=== PATIENT | female | born 1960 | race African-American/Black ===

== ENCOUNTER 2017-06-10 02:45 | Emergency (ER) | payer MEDICARE, OTHER ==
--- OUTSIDE RECORDS SUMMARY | 2017-06-10 02:48 | XMS REPORT ---
:1960 Author Organization eClinicalWorks Care Team Providers Name Role Phone Anisa Lucas Provider Role Unavailable Allergies, Adverse Reactions, Alerts Substance Reaction Event Type N.K.D.A. Info Not Available Non Drug Allergy Problems Problem Type Condition Code Onset Dates Condition Status Problem Fatty liver K76.0 Active Problem Gastroesophageal reflux disease, K21.9 Active esophagitis presence not specified Problem Hypertension, unspecified type I10 Active Problem Fibromyalgia M79.7 Active Problem Chronic pain syndrome G89.4 Active Problem Dermatitis L30.9 Active Problem Hypertension I10 Active Problem GERD without esophagitis K21.9 Active Problem Depression with anxiety F41.8 Active Problem Obstructive sleep apnea G47.33 Active Assessment Fibromyalgia M79.7 Active Assessment Obstructive sleep apnea G47.33 Active Assessment Depression with anxiety F41.8 Active Assessment Chronic pain syndrome G89.4 Active Assessment Gastroesophageal reflux disease, K21.9 Active esophagitis presence not specified Assessment Hyperglycemia R73.9 Active Assessment Fatty liver K76.0 Active Assessment Hypertension, unspecified type I10 Active Assessment Elevated liver enzymes R74.8 Active Problem Menopause Z78.0 Active Medications Medication Code Code Instructions Start End Status Dosage System Date Date Zoloft [facility] 74896305092 100 mg Orally Active 1 tablet Once a day Cozaar ND 03383111582 100 mg Orally Active 1 tablet Once a day Methocarbamol ND 19346224421 500 MG Orally Sept Active 1-2 tablets every 6 hrs as 25, as needed needed 2017 for muscle cramps/pain Melatonin ND 35827196102 5 MG Orally Active 1 tablet at Once a day bedtime as needed with food Duloxetine HCl ND 65092552268 20 mg Orally Active 1 capsule Once a day Triamcinolone & NDC 0 0.1 % Active 1 Emollient Externally application Twice a day Hydrochlorothiazide ND 21868846690 12.5 MG Orally Active 1 tablet in Once a day the morning Cetirizine HCl ND 92281348235 10 MG Orally Active 1 tablet Once a day Ondansetron HCl [facility] 15940779688 4 MG Orally Active not defined Twice daily Nystatin [facility] 03226833471 481379 UNIT/ML Active 4 ml Mouth/Throat Four times a day x10 days Betamethasone [facility] 89818793848 0.05 % Active 1 Dipropionate Externally application Twice a day to affected area Medrol [facility] 35730560438 4 MG Orally Active 1 tablet with food or milk in the morning Ultram [facility] 88599634694 50 MG Orally Active 1 tablet as Three times a needed day Omeprazole [facility] 28481577815 20 mg Orally Active 1 capsule Once a day Trazodone HCl [facility] 65380200921 100 MG Orally Active 1 tablet at Once a day bedtime as needed for sleep Tramadol HCl [facility] 32992983718 50 MG Orally Active 1 tablet as 3x daily needed Savella [facility] 98352190295 12.5 MG Orally Active 1 tablet Twice a day Estrace [facility] 87377050007 0.1 MG/GM Active not defined Vaginal Lortab 5 NDC 0 Active not defined Cyclobenzaprine HCl [facility] 15371271016 10 MG Orally Active 1 tablet as Two times a needed day Results No Known Results Summary Purpose eClinicalWorks Submission
--- NOTE | 2017-06-10 03:23 | EDPHYS ---
Physician Documentation [facility] Name: Evelyn Rodgers Age: 57 yrs Sex: Female : 1960 Arrival Date: 06/10/2017 Time: 02:49 Bed 14 Private MD: Anisa Lucas ED Physician Honorio Nielsen HPI: 06/10 03:20 This 57 yrs old Black Female presents to ER via Ambulatory with complaints of FOOT rekha PROBLEM. 03:20 The patient presents with decreased range of motion, pain, tenderness. The complaints rekha affect the right foot. Context: resulted from a chronic condition, Mechanism of Injury: Unknown the patient can partially bear weight, the patient is able to ambulate. Onset: The symptoms/episode began/occurred 3 day(s) ago. Modifying factors: The symptoms are alleviated by elevation of extremity, the symptoms are aggravated by weight bearing, movement, wearing shoes. Associated signs and symptoms: The patient has no apparent associated signs or symptoms. Severity of symptoms: At their worst the symptoms were moderate, in the emergency department the symptoms are unchanged. The patient has experienced similar episodes in the past, multiple times. Historical: - Allergies: 03:11 PENICILLINS; ao 03:11 Ciprofloxacin; ao 03:11 Levaquin; ao - Home Meds: 03:11 losartan 100 mg oral tab 1 tab once daily [Active]; hydrochlorothiazide 12.5 mg Oral ao cap 1 cap once daily [Active]; tramadol 50 mg Oral tab 1 tab every 4-6 hours [Active]; omeprazole 20 mg Oral cpDR 1 cap once daily [Active]; - PMHx: 03:11 Hypertension; GERD; Fibromyalgia; ao - PSHx: 03:11 Hysterectomy; Thyroidectomy; tube ligation; Tonsillectomy; nose; breast; spider bite; ao - Immunization history:: Adult Immunizations unknown. - Social history:: Smoking status: Patient/guardian denies using tobacco, Patient/guardian denies using alcohol, street drugs. - Family history:: not pertinent. ROS: 03:20 Constitutional: Negative for fever, chills, and weight loss, Eyes: Negative for injury, rekha pain, redness, and discharge, ENT: Negative for injury, pain, and discharge, Neck: Negative for injury, pain, and swelling, Cardiovascular: Negative for chest pain, palpitations, and edema, Respiratory: Negative for shortness of breath, cough, wheezing, and pleuritic chest pain, Abdomen/GI: Negative for abdominal pain, nausea, vomiting, diarrhea, and constipation, Back: Negative for injury and pain, : Negative for injury, bleeding, discharge, and swelling, Skin: Negative for injury, rash, and discoloration, Neuro: Negative for headache, weakness, numbness, tingling, and seizure, Psych: Negative for depression, anxiety, suicide ideation, homicidal ideation, and hallucinations, Allergy/Immunology: Negative for hives, rash, and allergies, Endocrine: Negative for neck swelling, polydipsia, polyuria, polyphagia, and marked weight changes, Hematologic/Lymphatic: Negative for swollen nodes, abnormal bleeding, and unusual bruising. 03:20 MS/extremity: Positive for decreased range of motion, pain, tenderness, of the left foot. Exam: 03:20 Constitutional: This is a well developed, well nourished patient who is awake, alert, rekha and in no acute distress. Head/Face: Normocephalic, atraumatic. Eyes: Pupils equal round and reactive to light, extra-ocular motions intact. Lids and lashes normal. Conjunctiva and sclera are non-icteric and not injected. Cornea within normal limits. Periorbital areas with no swelling, redness, or edema. ENT: Nares patent. No nasal discharge, no septal abnormalities noted. Tympanic membranes are normal and external auditory canals are clear. Oropharynx with no redness, swelling, or masses, exudates, or evidence of obstruction, uvula midline. Mucous membranes moist. Neck: Trachea midline, no thyromegaly or masses palpated, and no cervical lymphadenopathy. Supple, full range of motion without nuchal rigidity, or vertebral point tenderness. No Meningismus. Chest/axilla: Normal chest wall appearance and motion. Nontender with no deformity. No lesions are appreciated. Cardiovascular: Regular rate and rhythm with a normal S1 and S2. No gallops, murmurs, or rubs. Normal PMI, no JVD. No pulse deficits. Respiratory: Lungs have equal breath sounds bilaterally, clear to auscultation and percussion. No rales, rhonchi or wheezes noted. No increased work of breathing, no retractions or nasal flaring. Abdomen/GI: Soft, non-tender, with normal bowel sounds. No distension or tympany. No guarding or rebound. No evidence of tenderness throughout. Back: No spinal tenderness. No costovertebral tenderness. Full range of motion. Skin: Warm, dry with normal turgor. Normal color with no rashes, no lesions, and no evidence of cellulitis. Neuro: Awake and alert, GCS 15, oriented to person, place, time, and situation. Cranial nerves II-XII grossly intact. Motor strength 5/5 in all extremities. Sensory grossly intact. Cerebellar exam normal. Normal gait. Psych: Awake, alert, with orientation to person, place and time. Behavior, mood, and affect are within normal limits. 03:20 Musculoskeletal/extremity: ROM: full active range of motion, full passive range of motion, Pulses: noted to be 4+ in the bilateral radial, brachial, femoral, popliteal, posterior tibial and and dorsalis pedis arteries., Compartment Syndrome exam of affected extremity: is normal. Weight bearing: can bear weight with assistance only, DVT Exam: no swelling, negative Homans' sign noted on exam, no appreciated bluish discoloration, no erythema, no increased warmth, pain, tenderness. Vital Signs: 03:11 BP 164 / 110; Pulse 87; Resp 16; Temp 98.1(O); Pulse Ox 100% on R/A; Weight 90.72 kg ao (R); Height 5 ft. 7 in. (170.18 cm) (R); Pain 8/10; 04:13 BP 165 / 102; Pulse 78; Resp 14; Pulse Ox 98% on R/A; Pain 0/10; ao 03:11 Body Mass Index 31.32 (90.72 kg, 170.18 cm) ao MDM: 03:03 Patient medically screened. [facility] 03:20 Data reviewed: vital signs, nurses notes. rekha Administered Medications: 03:35 Drug: [place] 10 mg-325 mg 1 tabs Route: PO; ao 03:41 Follow up: Response: Medication administered at discharge. ao 03:48 Follow up: Response: No adverse reaction ao Disposition: 06/10/17 03:23 Discharged to Home. Impression: Pain in left foot - chronic. - Condition is Stable. - Discharge Instructions: Foot Contusion, Foot Sprain, Foot Contusion, Xxbo-vm-Inxz. - Prescriptions for Tylenol- Codeine #3 300-30 mg Oral Tablet - take 2 tablet by ORAL route every 6 hours As needed; 30 tablet. Motrin IB 200 mg Oral Tablet - take 1 tablet by ORAL route every 6 hours As needed as needed with food; 20 tablet. - Medication Reconciliation Form, Thank You Letter, Antibiotic Education, Prescription Opioid Use form. - Follow up: Anisa Lucas MD; When: 2 - 3 days; Reason: Recheck today's complaints, Continuance of care, Re-evaluation by your physician. - Problem is new. - Symptoms have improved. Signatures: Honorio Nielsen MD MD cha Ortiz, Alex RN RN ao
--- NOTE | 2017-06-10 03:23 | ER ---
Nurse's Notes [facility] Name: Evelyn Rodgers Age: 57 yrs Sex: Female : 1960 Arrival Date: 06/10/2017 Time: 02:49 Bed 14 Private MD: Anisa Lucas Diagnosis: Pain in left foot-chronic Presentation: 06/10 03:05 Presenting complaint: Patient states: "I have a callus in my left foot that is been ao hurting more lately." Patient reports pain 8/10. Patient states that is not able to walk due to pain. Transition of care: patient was not received from another setting of care. Onset of symptoms is unknown. Initial Sepsis Screen: Does the patient meet any 2 criteria? No. Patient's initial sepsis screen is negative. Does the patient have a suspected source of infection? No. Patient's initial sepsis screen is negative. Care prior to arrival: None. 03:05 Method Of Arrival: Ambulatory ao 03:05 Acuity: DARIUS 4 ao Triage Assessment: 03:13 General: Appears in no apparent distress. comfortable, Behavior is calm, cooperative, ao appropriate for age. Pain: Complains of pain in left foot. EENT: No signs and/or symptoms were reported regarding the EENT system. Neuro: Level of Consciousness is awake, alert, obeys commands, Oriented to person, place, time, situation, Appropriate for age Moves all extremities. Speech is normal, Facial symmetry appears normal. Cardiovascular: Patient's skin is warm and dry. Respiratory: Airway is patent Respiratory effort is even, unlabored, Respiratory pattern is regular, symmetrical. GI: Abdomen is non-distended. : No signs and/or symptoms were reported regarding the genitourinary system. Derm: No signs and/or symptoms reported regarding the dermatologic system. Musculoskeletal: Range of motion: intact in left ankle. Historical: - Allergies: 03:11 PENICILLINS; ao 03:11 Ciprofloxacin; ao 03:11 Levaquin; ao - Home Meds: 03:11 losartan 100 mg oral tab 1 tab once daily [Active]; hydrochlorothiazide 12.5 mg Oral ao cap 1 cap once daily [Active]; tramadol 50 mg Oral tab 1 tab every 4-6 hours [Active]; omeprazole 20 mg Oral cpDR 1 cap once daily [Active]; - PMHx: 03:11 Hypertension; GERD; Fibromyalgia; ao - PSHx: 03:11 Hysterectomy; Thyroidectomy; tube ligation; Tonsillectomy; nose; breast; spider bite; ao - Immunization history:: Adult Immunizations unknown. - Social history:: Smoking status: Patient/guardian denies using tobacco, Patient/guardian denies using alcohol, street drugs. - Family history:: not pertinent. Screenin:12 Abuse screen: Denies threats or abuse. Denies injuries from another. Nutritional ao screening: No deficits noted. Tuberculosis screening: No symptoms or risk factors identified. Fall Risk None identified. Assessment: 03:14 General: See triage notes. ao 03:49 Reassessment: Patient waiting on significant other who is in the same room to be ao discharge. Patient will be send home when significant other is discharge about 45 min. 04:14 Reassessment: Patient states pain is okay at this time since she is not walking. ao Waiting on significant other to be discharge. Discharge instructions had been given already to patient and patient agrees with the POC and to follow up with a Podiatries. Vital Signs: 03:11 BP 164 / 110; Pulse 87; Resp 16; Temp 98.1(O); Pulse Ox 100% on R/A; Weight 90.72 kg ao (R); Height 5 ft. 7 in. (170.18 cm) (R); Pain 8/10; 04:13 BP 165 / 102; Pulse 78; Resp 14; Pulse Ox 98% on R/A; Pain 0/10; ao 03:11 Body Mass Index 31.32 (90.72 kg, 170.18 cm) ao ED Course: 02:49 Patient arrived in ED. do 02:50 Anisa Lucas MD is Private Physician. do 02:57 Vahe Aranda, RANDY is Primary Nurse. ao 03:03 Honorio Nielsen MD is Attending Physician. rekha 03:07 Triage completed. ao 03:07 Arm band placed on right wrist. Patient placed in an exam room, on a stretcher, Patient ao notified of wait time. 03:14 Patient has correct armband on for positive identification. Pulse ox on. NIBP on. ao 03:22 Anisa Lucas MD is Referral Physician. rekha 03:42 No provider procedures requiring assistance completed. Patient did not have IV access ao during this emergency room visit. Administered Medications: 03:35 Drug: [place] 10 mg-325 mg 1 tabs Route: PO; ao 03:41 Follow up: Response: Medication administered at discharge. ao 03:48 Follow up: Response: No adverse reaction ao Outcome: 03:23 Discharge ordered by . rekha 03:42 Discharged to home ambulatory. ao 03:42 Condition: stable 03:42 Discharge instructions given to patient, Instructed on discharge instructions, follow up and referral plans. Demonstrated understanding of instructions, follow-up care, medications, Prescriptions given X 1. 04:31 Patient left the ED. ao Signatures: Honorio Nielsen MD MD cha Ortiz, Alex RN RN Winter Matias do
[2017-06-10] MEDS ORDERED: HYDROCODONE/APAP 10/325 TAB ONE (03:30)
== END 2017-06-10 04:31 | disposition home or self-care (01) ==
LOC: ER 02:45
DX: M79.672 Pain in left foot (principal); Z88.0 Allergy status to penicillin; Z88.6 Allergy status to analgesic agent; Z88.1 Allergy status to other antibiotic agents; I10 Essential (primary) hypertension; K21.9 Gastro-esophageal reflux disease without esophagitis; M79.7 Fibromyalgia
CPT/HCPCS: 99283

== ENCOUNTER 2017-11-10 13:02 | Emergency (ER) | payer OTHER ==
--- OUTSIDE RECORDS SUMMARY | 2017-11-10 13:04 | XMS REPORT ---
[...] End Status Dosage System Date Date Zoloft [facility] 75870816568 100 mg Orally Active 1 tablet Once a day Cozaar ND 52776527661 100 mg Orally Active 1 tablet Once a day Methocarbamol ND 55035314195 500 MG Orally Sept Active 1-2 tablets every 6 hrs as 25, as needed needed 2017 for muscle cramps/pain Melatonin ND 59877007508 5 MG Orally Active 1 tablet at Once a day bedtime as needed with food Duloxetine HCl ND 85480599010 20 mg Orally Active 1 capsule Once a day Triamcinolone & NDC 0 0.1 % Active 1 Emollient Externally application Twice a day Hydrochlorothiazide ND 49540723856 12.5 MG Orally Active 1 tablet in Once a day the morning Cetirizine HCl ND 57957904356 10 MG Orally Active 1 tablet Once a day Ondansetron HCl [facility] 91651475023 4 MG Orally Active not defined Twice daily Nystatin [facility] 45338764091 101362 UNIT/ML Active 4 ml Mouth/Throat Four times a day x10 days Betamethasone [facility] 04707304428 0.05 % Active 1 Dipropionate Externally application Twice a day to affected area Medrol [facility] 60560017024 4 MG Orally Active 1 tablet with food or milk in the morning Ultram [facility] 27089613579 50 MG Orally Active 1 tablet as Three times a needed day Omeprazole [facility] 20150180622 20 mg Orally Active 1 capsule Once a day Trazodone HCl [facility] 47084336375 100 MG Orally Active 1 tablet at Once a day bedtime as needed for sleep Tramadol HCl [facility] 63105909724 50 MG Orally Active 1 tablet as 3x daily needed Savella [facility] 73600766118 12.5 MG Orally Active 1 tablet Twice a day Estrace [facility] 88825824912 0.1 MG/GM Active not defined Vaginal Lortab 5 NDC 0 Active not defined Cyclobenzaprine HCl [facility] 65071143624 10 MG Orally Active 1 tablet as Two times a needed day Results No Known Results Summary Purpose eClinicalWorks Submission
[2017-11-10] MEDS ORDERED: MORPHINE 4 MG/ML SYR ONE (13:44)
[2017-11-10] MEDS ORDERED: ONDANSETRON 4 MG (ODT) TAB ONE (13:44)
--- NOTE | 2017-11-10 13:48 | EDPHYS ---
Physician Documentation [facility] Name: Evelyn Rodgers Age: 57 yrs Sex: Female : 1960 Arrival Date: 11/10/2017 Time: 13:03 Bed 15 Private MD: Anisa Lucas ED Physician Eric Nolen HPI: 11/10 13:38 This 57 yrs old Black Female presents to ER via Ambulatory with complaints of Left Foot pm1 Pain. 13:38 The patient presents with pain, that is chronic. The complaints affect the left foot. pm1 Context: The problem was sustained at home, resulted from prior debridement to left foot about 10 years ago, the patient can fully bear weight, the patient is able to ambulate. Onset: The symptoms/episode began/occurred Many years ago. Last surgery in 2008. Modifying factors: The symptoms are alleviated by nothing. the symptoms are aggravated by weather changes. Associated signs and symptoms: Pertinent negatives calf tenderness, fever, numbness, swelling, tingling. Treatment prior to arrival includes: over the counter medications, Tylenol. Severity of symptoms: in the emergency department the symptoms are actually worse. The patient has experienced similar episodes in the past, chronically. The patient has not recently seen a physician. Historical: - Allergies: 13:26 Ciprofloxacin; ss 13:26 Levaquin; ss 13:26 PENICILLINS; ss - PMHx: 13:26 Fibromyalgia; GERD; Hypertension; ss - PSHx: 13:26 Hysterectomy; tube ligation; Thyroidectomy; Tonsillectomy; nose; breast reduction; ss spider bite; - Immunization history:: Adult Immunizations up to date. - Social history:: Smoking status: Patient/guardian denies using tobacco. - Ebola Screening: : Patient denies exposure to infectious person Patient denies travel to an Ebola-affected area in the 21 days before illness onset. ROS: 13:38 Constitutional: Negative for fever, chills, and weight loss, Eyes: Negative for injury, pm1 pain, redness, and discharge, ENT: Negative for injury, pain, and discharge, Neck: Negative for injury, pain, and swelling, Cardiovascular: Negative for chest pain, palpitations, and edema, Respiratory: Negative for shortness of breath, cough, wheezing, and pleuritic chest pain, Abdomen/GI: Negative for abdominal pain, nausea, vomiting, diarrhea, and constipation, Back: Negative for injury and pain. 13:38 Skin: Negative for injury, rash, and discoloration. 13:38 Neuro: Negative for headache, weakness, numbness, tingling, and seizure. 13:38 MS/extremity: Positive for pain, of the left foot, Negative for decreased range of motion, paresthesias. Exam: 13:38 Constitutional: This is a well developed, well nourished patient who is awake, alert, pm1 and in no acute distress. Head/Face: Normocephalic, atraumatic. Chest/axilla: Normal chest wall appearance and motion. Nontender with no deformity. No lesions are appreciated. Cardiovascular: Regular rate and rhythm with a normal S1 and S2. No gallops, murmurs, or rubs. Normal PMI, no JVD. No pulse deficits. Respiratory: Lungs have equal breath sounds bilaterally, clear to auscultation and percussion. No rales, rhonchi or wheezes noted. No increased work of breathing, no retractions or nasal flaring. Abdomen/GI: Soft, non-tender, with normal bowel sounds. No distension or tympany. No guarding or rebound. No evidence of tenderness throughout. Skin: Warm, dry with normal turgor. Normal color with no rashes, no lesions, and no evidence of cellulitis. 13:38 Musculoskeletal/extremity: Extremities: grossly normal except: noted in the left foot: Scar tissue to sole of left foot, There is no evidence of erythema, swelling, cellulitis, abscess, ROM: full active range of motion, in the left foot, full passive range of motion, in the left foot, Pulses: noted to be 2+ in the left dorsalis pedis artery, Sensation intact. 13:38 Neuro: Orientation: is normal, Motor: moves all fours, Sensation: is normal, no obvious gross deficits. Vital Signs: 13:26 BP 141 / 105; Pulse 83; Resp 15; Pulse Ox 99% on R/A; Weight 106.59 kg; Height 5 ft. 6 ss in. (167.64 cm); Pain 9/10; 14:05 BP 155 / 99; Pulse 71; Resp 17; Pulse Ox 99% on R/A; kr2 13:26 Body Mass Index 37.93 (106.59 kg, 167.64 cm) ss MDM: 13:20 Patient medically screened. pm1 13:46 Data reviewed: vital signs. Data interpreted: Pulse oximetry: on room air is 99 %. pm1 Interpretation: normal. 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 Administered Medications: 13:42 Drug: Zofran 4 mg Route: PO; kr2 14:05 Follow up: Response: No adverse reaction kr2 13:44 Drug: morphine 4 mg Route: IM; Site: right deltoid; kr2 14:05 Follow up: Response: No adverse reaction; Pain is decreased kr2 Disposition: 17:10 Co-signature as Attending Physician, Eric Nolen MD. rn Disposition: 11/10/17 13:47 Discharged to Home. Impression: Other chronic pain. - Condition is Stable. - Discharge Instructions: Chronic Pain. - Prescriptions for Tramadol 50 mg Oral Tablet - take 1 tablet by ORAL route every 8 hours as needed; 12 tablet. - Medication Reconciliation Form, Thank You Letter, Antibiotic Education, Prescription Opioid Use form. - Follow up: Emergency Department; When: As needed; Reason: Worsening of condition. Follow up: Darvin Haider MD; When: 2 - 3 days; Reason: Recheck today's complaints, Continuance of care, Re-evaluation by your physician. - Problem is new. - Symptoms have improved. Signatures: Eric Nolen MD MD rn Smirch, Shelby, RN RN Mac Alfred NP MANUAL PLATE FILLER pm1 Kayy Brumfield RN RN kr2 Corrections: (The following items were deleted from the chart) 14:06 13:47 11/10/2017 13:47 Discharged to Home. Impression: Other chronic pain. Condition is kr2 Stable. Forms are Medication Reconciliation Form, Thank You Letter, Antibiotic Education, Prescription Opioid Use. Follow up: Emergency Department; When: As needed; Reason: Worsening of condition. Follow up: Darvin Haider; When: 2 - 3 days; Reason: Recheck today's complaints, Continuance of care, Re-evaluation by your physician. Problem is new. Symptoms have improved. pm1
--- NOTE | 2017-11-10 13:48 | ER ---
Nurse's Notes [facility] Name: Evelyn Rodgers Age: 57 yrs Sex: Female : 1960 Arrival Date: 11/10/2017 Time: 13:03 Bed 15 Private MD: Anisa Lucas Diagnosis: Other chronic pain Presentation: 11/10 13:23 Presenting complaint: Patient states: L foot pain x 2 years that has gotten worse since ss the weather changed. Patient reports a history of fibromyalgia and states that the weather has caused a flare up. Also c/o achy joints. Transition of care: patient was not received from another setting of care. Onset of symptoms is unknown. Risk Assessment: Do you want to hurt yourself or someone else? Patient reports no desire to harm self or others. Initial Sepsis Screen: Does the patient meet any 2 criteria? No. Patient's initial sepsis screen is negative. Does the patient have a suspected source of infection? No. Patient's initial sepsis screen is negative. Care prior to arrival: None. 13:23 Method Of Arrival: Ambulatory ss 13:23 Acuity: DARIUS 5 ss Historical: - Allergies: 13:26 Ciprofloxacin; ss 13:26 Levaquin; ss 13:26 PENICILLINS; ss - PMHx: 13:26 Fibromyalgia; GERD; Hypertension; ss - PSHx: 13:26 Hysterectomy; tube ligation; Thyroidectomy; Tonsillectomy; nose; breast reduction; ss spider bite; - Immunization history:: Adult Immunizations up to date. - Social history:: Smoking status: Patient/guardian denies using tobacco. - Ebola Screening: : Patient denies exposure to infectious person Patient denies travel to an Ebola-affected area in the 21 days before illness onset. Screenin:03 Abuse screen: Denies threats or abuse. Denies injuries from another. Nutritional kr2 screening: No deficits noted. Tuberculosis screening: No symptoms or risk factors identified. Fall Risk None identified. Assessment: 13:20 General: Appears in no apparent distress. uncomfortable, well groomed, well developed, kr2 well nourished, Behavior is calm, cooperative, appropriate for age. Pain: Complains of pain in left foot Pain currently is 10 out of 10 on a pain scale. Quality of pain is described as aching, Is continuous, Alleviated by medications, Aggravated by weight bearing. Neuro: Level of Consciousness is awake, alert, obeys commands, Oriented to person, place, time, situation, Appropriate for age. Cardiovascular: Capillary refill < 3 seconds in bilateral fingers Patient's skin is warm and dry. Respiratory: Airway is patent Respiratory effort is even, unlabored, Respiratory pattern is regular, symmetrical. Derm: Skin is intact, is healthy with good turgor, Skin is pink, warm \T\ dry. Musculoskeletal: Circulation, motion, and sensation intact. Patient had muscle tissue removed from the bottom of her foot due to brown recluse bite in 2011. She states she lives with chronic pain and today it got unbearable. Vital Signs: 13:26 BP 141 / 105; Pulse 83; Resp 15; Pulse Ox 99% on R/A; Weight 106.59 kg; Height 5 ft. 6 ss in. (167.64 cm); Pain 9/10; 14:05 BP 155 / 99; Pulse 71; Resp 17; Pulse Ox 99% on R/A; kr2 13:26 Body Mass Index 37.93 (106.59 kg, 167.64 cm) ss ED Course: 13:03 Patient arrived in ED. sb2 13:04 Anisa Lucas MD is Private Physician. sb2 13:20 Mac Alfred NP is PHCP. pm1 13:20 Eric Nolen MD is Attending Physician. pm1 13:20 Arm band placed on. kr2 13:20 No provider procedures requiring assistance completed. Patient did not have IV access kr2 during this emergency room visit. 13:24 Triage completed. ss 13:25 Pulse ox on. NIBP on. jp3 13:34 Bed in low position. Call light in reach. Side rails up X 1. Warm blanket given. jp3 13:35 Ice pack to injury. jp3 13:44 Kayy Brumfield, RANDY is Primary Nurse. kr2 13:46 Darvin Haider MD is Referral Physician. pm1 Administered Medications: 13:42 Drug: Zofran 4 mg Route: PO; kr2 14:05 Follow up: Response: No adverse reaction kr2 13:44 Drug: morphine 4 mg Route: IM; Site: right deltoid; kr2 14:05 Follow up: Response: No adverse reaction; Pain is decreased kr2 Outcome: 13:47 Discharge ordered by . pm1 14:04 Discharged to home ambulatory, with friend. kr2 14:04 Condition: good 14:04 Discharge instructions given to patient, friend, Instructed on discharge instructions, follow up and referral plans. medication usage, Demonstrated understanding of instructions, follow-up care, medications, Prescriptions given X 1. 14:06 Patient left the ED. kr2 Signatures: Mely Hawk RN RN ss Mac Alfred, CATHY PHARMACY CARE COORDINATOR pm1 Kayy Brumfield RN RN kr2 Ginger Ingram sb2 Sedrick Cotton jp3
== END 2017-11-10 14:06 | disposition home or self-care (01) ==
LOC: ER 13:02
DX: G89.29 Other chronic pain (principal); I10 Essential (primary) hypertension; Z88.0 Allergy status to penicillin; Z88.3 Allergy status to other anti-infective agents
CPT/HCPCS: 96372; 99283

== ENCOUNTER 2017-12-03 13:11 | Emergency (ER) | payer OTHER ==
--- OUTSIDE RECORDS SUMMARY | 2017-12-03 13:13 | XMS REPORT ---
[...] End Status Dosage System Date Date Zoloft [facility] 54639442280 100 mg Orally Active 1 tablet Once a day Cozaar ND 21821015496 100 mg Orally Active 1 tablet Once a day Methocarbamol ND 45068073834 500 MG Orally Sept Active 1-2 tablets every 6 hrs as 25, as needed needed 2017 for muscle cramps/pain Melatonin ND 25742279642 5 MG Orally Active 1 tablet at Once a day bedtime as needed with food Duloxetine HCl ND 19984099146 20 mg Orally Active 1 capsule Once a day Triamcinolone & NDC 0 0.1 % Active 1 Emollient Externally application Twice a day Hydrochlorothiazide ND 09441356335 12.5 MG Orally Active 1 tablet in Once a day the morning Cetirizine HCl ND 54026555885 10 MG Orally Active 1 tablet Once a day Ondansetron HCl [facility] 64785713886 4 MG Orally Active not defined Twice daily Nystatin [facility] 82505199496 718108 UNIT/ML Active 4 ml Mouth/Throat Four times a day x10 days Betamethasone [facility] 32383445315 0.05 % Active 1 Dipropionate Externally application Twice a day to affected area Medrol [facility] 22597453612 4 MG Orally Active 1 tablet with food or milk in the morning Ultram [facility] 68592542523 50 MG Orally Active 1 tablet as Three times a needed day Omeprazole [facility] 89628702533 20 mg Orally Active 1 capsule Once a day Trazodone HCl [facility] 75623762209 100 MG Orally Active 1 tablet at Once a day bedtime as needed for sleep Tramadol HCl [facility] 52658490034 50 MG Orally Active 1 tablet as 3x daily needed Savella [facility] 08570955850 12.5 MG Orally Active 1 tablet Twice a day Estrace [facility] 16221037060 0.1 MG/GM Active not defined Vaginal Lortab 5 NDC 0 Active not defined Cyclobenzaprine HCl [facility] 51777759251 10 MG Orally Active 1 tablet as Two times a needed day Results No Known Results Summary Purpose eClinicalWorks Submission
--- OUTSIDE RECORDS SUMMARY | 2017-12-03 13:13 | XMS REPORT ---
:1960 Author Organization eClinicalWorks Care Team Providers Name Role Phone Anisa Lucas Provider Role Unavailable Allergies, Adverse Reactions, Alerts Substance Reaction Event Type N.K.D.A. Info Not Available Non Drug Allergy Problems Problem Type Condition Code Onset Dates Condition Status Problem Hypertension, unspecified type I10 Active Problem GERD without esophagitis K21.9 Active Problem Gastroesophageal reflux disease, K21.9 Active esophagitis presence not specified Problem Dermatitis L30.9 Active Problem Fibromyalgia M79.7 Active Problem Subcutaneous mass R22.9 Active Problem Obstructive sleep apnea G47.33 Active Problem Hypertension I10 Active Problem Chronic pain syndrome G89.4 Active Problem Depression with anxiety F41.8 Active Assessment Depression with anxiety F41.8 Active Assessment Gastroesophageal reflux disease, K21.9 Active esophagitis presence not specified Assessment Subcutaneous mass R22.9 Active Assessment Hypertension, unspecified type I10 Active Problem Menopause Z78.0 Active Assessment Chronic pain syndrome G89.4 Active Problem Fatty liver K76.0 Active Medications Medication Code Code Instructions Start End Status Dosage System Date Date Melatonin [facility] 12035570722 5 MG Orally Active 1 tablet at Once a day bedtime as needed with food Medrol [facility] 61353392753 4 MG Orally Active 1 tablet with food or milk in the morning Savella [facility] 08019765629 12.5 MG Active 1 tablet Orally Twice a day Betamethasone ND 61807827287 0.05 % Active 1 Dipropionate Externally application Twice a day to affected area Lortab 5 NDC 0 Active not defined Tramadol HCl ND 66768318825 50 MG Orally Timo Active 1 tablet as Twice daily 02, needed for 2019 pain Triamcinolone & NDC 0 0.1 % Active 1 Emollient Externally application Twice a day Estrace ND 31794394881 0.1 MG/GM Active not defined Vaginal Nystatin [facility] 58160846683 642919 Active 4 ml UNIT/ML Mouth/Throat Four times a day x10 days Trazodone HCl ND 43114590526 100 mg Orally Active 1 tablet at Once a day bedtime as needed for sleep Zoloft [facility] 14804220907 100 mg Orally Active 1 tablet Once a day Duloxetine HCl [facility] 26041526080 20 mg Orally Active 1 capsule Once a day Hydrochlorothiazide [facility] 08533474467 12.5 MG Active 1 tablet in Orally Once a the morning day Ondansetron HCl [facility] 83525853369 4 MG Orally Active not defined Twice daily Ultram [facility] 48886543984 50 MG Orally Active 1 tablet as Three times a needed day Cozaar [facility] 68958641582 100 mg Orally Active 1 tablet Once a day Omeprazole [facility] 16405226825 20 mg Orally Active 1 capsule Once a day Cyclobenzaprine HCl [facility] 35162649471 10 MG Orally Active 1 tablet as Two times a needed day Cetirizine HCl [facility] 26328211922 10 MG Orally Active 1 tablet Once a day Methocarbamol [facility] 24508713854 500 MG Orally Aria Active 1-2 tablets Twice daily , as needed 2018 for muscle cramps/pain Results No Known Results Summary Purpose eClinicalWorks Submission
[2017-12-03] MEDS ORDERED: MEPERIDINE HCL 50 MG/ML AMP ONE (15:04)
[2017-12-03] MEDS ORDERED: DEXAMETHASONE 10 MG/ML VIAL ONE (15:04)
[2017-12-03] MEDS ORDERED: ONDANSETRON 4 MG/2 ML VIAL ONE (15:05)
[2017-12-03] MEDS ORDERED: KETOROLAC 30 MG/ML INJ ONE (15:05)
--- NOTE | 2017-12-03 15:49 | ER ---
Nurse's Notes [facility] Name: Evelyn Rodgers Age: 57 yrs Sex: Female : 1960 Arrival Date: 12/03/2017 Time: 13:13 Bed 13 Private MD: Anisa Lucas Diagnosis: Other chronic pain Presentation: 12/03 13:23 Presenting complaint: Patient states: "I have chronic pain and I have a pack in the aj1 back where they insert medicine, and I think the medicine has worn off because I haven't felt like this in a long time" Reports generalized pain for the past 3 weeks. Transition of care: patient was not received from another setting of care. Onset of symptoms was November 2017. Risk Assessment: Do you want to hurt yourself or someone else? Patient reports no desire to harm self or others. Initial Sepsis Screen: Does the patient meet any 2 criteria? No. Patient's initial sepsis screen is negative. Does the patient have a suspected source of infection? No. Patient's initial sepsis screen is negative. Care prior to arrival: None. 13:23 Method Of Arrival: Ambulatory [facility] 13:23 Acuity: DARIUS 4 aj1 Triage Assessment: 13:25 General: Appears in no apparent distress. uncomfortable, Behavior is calm, cooperative, aj1 appropriate for age. Pain: Pain currently is 9 out of 10 on a pain scale. Neuro: Level of Consciousness is awake, alert, obeys commands. Cardiovascular: Patient's skin is warm and dry. Respiratory: Airway is patent Respiratory effort is even, unlabored, Respiratory pattern is regular, symmetrical. Historical: - Allergies: 13:25 Ciprofloxacin; aj1 13:25 Levaquin; aj1 13:25 PENICILLINS; aj1 - Home Meds: 13:25 hydrochlorothiazide 12.5 mg Oral cap 1 cap once daily [Active]; losartan 100 mg Oral aj1 tab 1 tab once daily [Active]; omeprazole 20 mg Oral cpDR 1 cap once daily [Active]; tramadol 50 mg Oral tab 1 tab every 4-6 hours [Active]; - PMHx: 13:25 Fibromyalgia; GERD; Hypertension; aj1 - Immunization history:: Flu vaccine is up to date. - Social history:: Smoking status: Patient/guardian denies using tobacco. - Ebola Screening: : Patient denies travel to an Ebola-affected area in the 21 days before illness onset. Screenin:35 Abuse screen: Denies threats or abuse. Nutritional screening: No deficits noted. rb1 Tuberculosis screening: No symptoms or risk factors identified. Fall Risk None identified. Assessment: 13:35 General: Appears in no apparent distress. comfortable, Behavior is calm, cooperative. rb1 Pain: Complains of pain in generalized Pain currently is 9 out of 10 on a pain scale. Pain began Pt. stated, "I was here three weeks ago for the same thing. I have an appointment with the pain doctor next week.". Neuro: Level of Consciousness is awake, alert, obeys commands, Oriented to person, place, time, situation. Cardiovascular: Capillary refill < 3 seconds is brisk in bilateral fingers. Respiratory: Airway is patent Respiratory effort is even, unlabored, Respiratory pattern is regular, symmetrical. GI: No signs and/or symptoms were reported involving the gastrointestinal system. : No signs and/or symptoms were reported regarding the genitourinary system. Derm: Skin is dry, Skin is normal, Skin temperature is warm. Musculoskeletal: Range of motion: intact in all extremities. 14:30 Reassessment: Patient appears in no apparent distress at this time. No changes from rb1 previously documented assessment. 15:16 Reassessment: Patient appears in no apparent distress at this time. Patient and/or rb1 family updated on plan of care and expected duration. Pain level reassessed. Patient is alert, oriented x 3, equal unlabored respirations, skin warm/dry/pink. 15:46 Reassessment: Patient appears in no apparent distress at this time. Patient and/or rb1 family updated on plan of care and expected duration. Pain level reassessed. Patient is alert, oriented x 3, equal unlabored respirations, skin warm/dry/pink. Patient states feeling better. Vital Signs: 13:25 BP 158 / 105; Pulse 81; Resp 18; Temp 97.1; Pulse Ox 99% on R/A; Weight 108.41 kg (R); aj1 Height 5 ft. 6 in. (167.64 cm) (R); Pain 9/10; 14:25 BP 114 / 85; Pulse 61; Resp 19; Pulse Ox 98% on R/A; rb1 15:25 BP 128 / 89; Pulse 70; Resp 18; Pulse Ox 97% on R/A; rb1 16:00 BP 128 / 89; Pulse 71; Resp 19; Pulse Ox 99% on R/A; Pain 4/10; rb1 13:25 Body Mass Index 38.58 (108.41 kg, 167.64 cm) aj1 ED Course: 13:13 Patient arrived in ED. tw3 13:13 Anisa Lucas MD is Private Physician. tw3 13:24 Triage completed. aj1 13:25 Arm band placed on Patient placed in an exam room. aj1 13:33 Matthew Bundy PA is PHCP. jr8 13:33 Jarad Willett MD is Attending Physician. jr8 13:35 Patient has correct armband on for positive identification. Bed in low position. Call rb1 light in reach. Side rails up X 1. Pulse ox on. NIBP on. 13:37 Teresa Bean, RN is Primary Nurse. rb1 14:58 Missed attempt(s): 24 gauge in right hand. Bleeding controlled, band aid applied, dh3 catheter tip intact. 15:00 Missed attempt(s): 24 gauge in left hand. Bleeding controlled, band aid applied, dh3 catheter tip intact. 15:02 Inserted saline lock: 20 gauge in left antecubital area, using aseptic technique. dh3 16:00 No provider procedures requiring assistance completed. IV discontinued, intact, rb1 bleeding controlled, No redness/swelling at site. Pressure dressing applied. Administered Medications: 15:09 Drug: Decadron - Dexamethasone 10 mg Route: IVP; Site: left antecubital; rb1 15:30 Follow up: Response: No adverse reaction rb1 15:10 Drug: TORadol 30 mg Route: IVP; Site: left antecubital; rb1 15:30 Follow up: Response: No adverse reaction; Pain is decreased rb1 15:12 Drug: Demerol 50 mg Route: IVP; Site: left antecubital; rb1 15:30 Follow up: Response: No adverse reaction; Pain is decreased rb1 15:14 Drug: Zofran 4 mg Route: IVP; Site: left antecubital; rb1 15:30 Follow up: Response: No adverse reaction rb1 Outcome: 15:48 Discharge ordered by . jr8 16:00 Discharged to home via wheelchair, with family. rb1 16:00 Condition: stable 16:00 Discharge instructions given to patient, Instructed on discharge instructions, follow up and referral plans. medication usage, Demonstrated understanding of instructions, follow-up care, medications, Prescriptions given X 1. 16:00 Patient left the ED. rb1 Signatures: Erma Colunga RN RN aj1 Matthew Bundy PA PA jr8 Teresa Bean RN RN rb1 Betty Duong tw3 Christina Valencia 3 Corrections: (The following items were deleted from the chart) 16:09 16:06 Patient left the ED. rb1 rb1
--- NOTE | 2017-12-03 15:50 | EDPHYS ---
Physician Documentation [facility] Name: Evelyn Rodgers Age: 57 yrs Sex: Female : 1960 Arrival Date: 12/03/2017 Time: 13:13 Bed 13 Private MD: Anisa Lucas ED Physician Jarad Willett HPI: 12/03 14:18 This 57 yrs old Black Female presents to ER via Ambulatory with complaints of Pain All jr8 Over. 14:18 Patient with history of fibromyalgia and chronic pain. Stated that she had pain pump jr8 placed a few year back and thinks it is no longer working. Stated that for the past few weeks noticed that she has had increased pain that is now unbearable. Saw PCP here and was given Tramadol for pain which she stated is not working at all. Stated that she is establishing herself with pain management here as well. Last one was in [place] . Severity of symptoms: At their worst the symptoms were moderate in the emergency department the symptoms are unchanged. The patient has been recently seen by a physician:. Historical: - Allergies: 13:25 Ciprofloxacin; aj1 13:25 Levaquin; aj1 13:25 PENICILLINS; aj1 - Home Meds: 13:25 hydrochlorothiazide 12.5 mg Oral cap 1 cap once daily [Active]; losartan 100 mg Oral aj1 tab 1 tab once daily [Active]; omeprazole 20 mg Oral cpDR 1 cap once daily [Active]; tramadol 50 mg Oral tab 1 tab every 4-6 hours [Active]; - PMHx: 13:25 Fibromyalgia; GERD; Hypertension; aj1 - Immunization history:: Flu vaccine is up to date. - Social history:: Smoking status: Patient/guardian denies using tobacco. - Ebola Screening: : Patient denies travel to an Ebola-affected area in the 21 days before illness onset. ROS: 14:18 Eyes: Negative for injury, pain, redness, and discharge, ENT: Negative for injury, jr8 pain, and discharge, Cardiovascular: Negative for chest pain, palpitations, and edema, Respiratory: Negative for shortness of breath, cough, wheezing, and pleuritic chest pain, Abdomen/GI: Negative for abdominal pain, nausea, vomiting, diarrhea, and constipation, Skin: Negative for injury, rash, and discoloration, Neuro: Negative for headache, weakness, numbness, tingling, and seizure. 14:18 Neck: Positive for pain with movement, pain at rest, tenderness, Negative for bony tenderness. 14:18 Back: Positive for pain at rest, pain with movement, Negative for radiated pain. 14:18 MS/extremity: Positive for pain, of the right arm, left arm, right leg and left leg. Exam: 14:18 Eyes: Pupils equal round and reactive to light, extra-ocular motions intact. Lids and jr8 lashes normal. Conjunctiva and sclera are non-icteric and not injected. Cornea within normal limits. Periorbital areas with no swelling, redness, or edema. ENT: Nares patent. No nasal discharge, no septal abnormalities noted. Tympanic membranes are normal and external auditory canals are clear. Oropharynx with no redness, swelling, or masses, exudates, or evidence of obstruction, uvula midline. Mucous membranes moist. Cardiovascular: Regular rate and rhythm with a normal S1 and S2. No gallops, murmurs, or rubs. Normal PMI, no JVD. No pulse deficits. Respiratory: Lungs have equal breath sounds bilaterally, clear to auscultation and percussion. No rales, rhonchi or wheezes noted. No increased work of breathing, no retractions or nasal flaring. Abdomen/GI: Soft, non-tender, with normal bowel sounds. No distension or tympany. No guarding or rebound. No evidence of tenderness throughout. Skin: Warm, dry with normal turgor. Normal color with no rashes, no lesions, and no evidence of cellulitis. Neuro: Awake and alert, GCS 15, oriented to person, place, time, and situation. Cranial nerves II-XII grossly intact. Motor strength 5/5 in all extremities. Sensory grossly intact. Cerebellar exam normal. Normal gait. 14:18 Neck: External neck: erythema, mass, swelling, tenderness, that is moderate, of the occiput, left mid cervical area, right mid cervical area, left trapezius, lower cervical area and right trapezius, C-spine: appears grossly normal, no vertebral tenderness, no crepitus, Thyroid: appears normal, Trachea: is midline with no obvious abnormalities, ROM/movement: pain, that is mild, with any movement. 14:18 Back: pain, that is moderate, diffusely , ROM is normal, normal spinal alignment noted. 14:18 Musculoskeletal/extremity: ROM: intact in all extremities, Circulation is intact in all extremities. Sensation intact. Pain with ROM in all extremities . Vital Signs: 13:25 BP 158 / 105; Pulse 81; Resp 18; Temp 97.1; Pulse Ox 99% on R/A; Weight 108.41 kg (R); aj1 Height 5 ft. 6 in. (167.64 cm) (R); Pain 9/10; 14:25 BP 114 / 85; Pulse 61; Resp 19; Pulse Ox 98% on R/A; rb1 15:25 BP 128 / 89; Pulse 70; Resp 18; Pulse Ox 97% on R/A; rb1 16:00 BP 128 / 89; Pulse 71; Resp 19; Pulse Ox 99% on R/A; Pain 4/10; rb1 13:25 Body Mass Index 38.58 (108.41 kg, 167.64 cm) aj1 MDM: 13:33 Patient medically screened. jr8 14:44 Data reviewed: vital signs, nurses notes. ED course: Patient was prescribed tramadol by jr8 PCP and stated that it does not worked. Offered Tylenol #3 which she says works better. Patient voluntarily handed over her tramadol prescription to use to properly dispose and understands that we were going to call pharmacy to cancel that prescription and any remaining refills of that. Patient understood and was good with this plan. Pharmacy was called and notified as well. Medicine was sealed and brought to our pharmacy for proper disposal . 15:47 Data interpreted: Pulse oximetry: on room air is 99 %. Interpretation: normal. jr8 Counseling: I had a detailed discussion with the patient and/or guardian regarding: the historical points, exam findings, and any diagnostic results supporting the discharge/admit diagnosis, the need for outpatient follow up, a painter chassis, to return to the emergency department if symptoms worsen or persist or if there are any questions or concerns that arise at home. Response to treatment: the patient's symptoms have markedly improved after treatment. 12/03 14:12 Order name: IV; Complete Time: 14:38 jr8 Administered Medications: 15:09 Drug: Decadron - Dexamethasone 10 mg Route: IVP; Site: left antecubital; rb1 15:30 Follow up: Response: No adverse reaction rb1 15:10 Drug: TORadol 30 mg Route: IVP; Site: left antecubital; rb1 15:30 Follow up: Response: No adverse reaction; Pain is decreased rb1 15:12 Drug: Demerol 50 mg Route: IVP; Site: left antecubital; rb1 15:30 Follow up: Response: No adverse reaction; Pain is decreased rb1 15:14 Drug: Zofran 4 mg Route: IVP; Site: left antecubital; rb1 15:30 Follow up: Response: No adverse reaction rb1 Disposition: 16:36 Co-signature as Attending Physician, Jarad Willett MD I agree with the assessment and kdr plan of care. Disposition: 12/03/17 15:48 Discharged to Home. Impression: Other chronic pain. - Condition is Stable. - Discharge Instructions: Chronic Pain. - Prescriptions for Tylenol- Codeine #3 300-30 mg Oral Tablet - take 2 tablet by ORAL route every 6 hours As needed; 30 tablet. - Medication Reconciliation Form, Thank You Letter, Antibiotic Education, Prescription Opioid Use form. - Follow up: Private Physician; When: 2 - 3 days; Reason: Recheck today's complaints, Continuance of care, Re-evaluation by your physician. - Problem is new. - Symptoms have improved. Signatures: Erma Colunga RN RN aj1 Jarad Willett MD MD kdr Matthew Bundy PA PA jr8 Teresa Bean, RN RN rb1 Corrections: (The following items were deleted from the chart) 16:06 15:48 12/03/2017 15:48 Discharged to Home. Impression: Other chronic pain. Condition is rb1 Stable. Forms are Medication Reconciliation Form, Thank You Letter, Antibiotic Education, Prescription Opioid Use. Follow up: Private Physician; When: 2 - 3 days; Reason: Recheck today's complaints, Continuance of care, Re-evaluation by your physician. Problem is new. Symptoms have improved. jr8
== END 2017-12-03 16:06 | disposition home or self-care (01) ==
LOC: ER 13:11
DX: G89.29 Other chronic pain (principal); I10 Essential (primary) hypertension; K21.9 Gastro-esophageal reflux disease without esophagitis; Z88.0 Allergy status to penicillin; Z88.1 Allergy status to other antibiotic agents
CPT/HCPCS: 96374; 96375; 99284; J1100; J2175; J2405

== ENCOUNTER 2018-01-27 11:36 | Emergency (ER) | payer OTHER ==
--- OUTSIDE RECORDS SUMMARY | 2018-01-27 11:38 | XMS REPORT ---
[...] End Status Dosage System Date Date Zoloft [facility] 64186180054 100 mg Orally Active 1 tablet Once a day Cozaar ND 09795360290 100 mg Orally Active 1 tablet Once a day Methocarbamol ND 79225559689 500 MG Orally Sept Active 1-2 tablets every 6 hrs as 25, as needed needed 2017 for muscle cramps/pain Melatonin ND 38025682634 5 MG Orally Active 1 tablet at Once a day bedtime as needed with food Duloxetine HCl ND 56988412165 20 mg Orally Active 1 capsule Once a day Triamcinolone & NDC 0 0.1 % Active 1 Emollient Externally application Twice a day Hydrochlorothiazide ND 41726750473 12.5 MG Orally Active 1 tablet in Once a day the morning Cetirizine HCl ND 56589579860 10 MG Orally Active 1 tablet Once a day Ondansetron HCl [facility] 47639681388 4 MG Orally Active not defined Twice daily Nystatin [facility] 66569852946 848656 UNIT/ML Active 4 ml Mouth/Throat Four times a day x10 days Betamethasone [facility] 52739363291 0.05 % Active 1 Dipropionate Externally application Twice a day to affected area Medrol [facility] 93737730552 4 MG Orally Active 1 tablet with food or milk in the morning Ultram [facility] 89081329207 50 MG Orally Active 1 tablet as Three times a needed day Omeprazole [facility] 30469946471 20 mg Orally Active 1 capsule Once a day Trazodone HCl [facility] 56835430405 100 MG Orally Active 1 tablet at Once a day bedtime as needed for sleep Tramadol HCl [facility] 28965918472 50 MG Orally Active 1 tablet as 3x daily needed Savella [facility] 29243178836 12.5 MG Orally Active 1 tablet Twice a day Estrace [facility] 05607351489 0.1 MG/GM Active not defined Vaginal Lortab 5 NDC 0 Active not defined Cyclobenzaprine HCl [facility] 82773032148 10 MG Orally Active 1 tablet as Two times a needed day Results No Known Results Summary Purpose eClinicalWorks Submission
--- OUTSIDE RECORDS SUMMARY | 2018-01-27 11:38 | XMS REPORT ---
[...] End Status Dosage System Date Date Melatonin [facility] 87616103020 5 MG Orally Active 1 tablet at Once a day bedtime as needed with food Medrol [facility] 92031116793 4 MG Orally Active 1 tablet with food or milk in the morning Savella [facility] 46949316071 12.5 MG Active 1 tablet Orally Twice a day Betamethasone ND 95595918674 0.05 % Active 1 Dipropionate Externally application Twice a day to affected area Lortab 5 NDC 0 Active not defined Tramadol HCl ND 54239692317 50 MG Orally Timo Active 1 tablet as Twice daily 02, needed for 2019 pain Triamcinolone & NDC 0 0.1 % Active 1 Emollient Externally application Twice a day Estrace ND 63966689107 0.1 MG/GM Active not defined Vaginal Nystatin [facility] 08904024514 225985 Active 4 ml UNIT/ML Mouth/Throat Four times a day x10 days Trazodone HCl ND 32227746251 100 mg Orally Active 1 tablet at Once a day bedtime as needed for sleep Zoloft [facility] 63819972141 100 mg Orally Active 1 tablet Once a day Duloxetine HCl [facility] 97789601735 20 mg Orally Active 1 capsule Once a day Hydrochlorothiazide [facility] 73634161150 12.5 MG Active 1 tablet in Orally Once a the morning day Ondansetron HCl [facility] 86396057090 4 MG Orally Active not defined Twice daily Ultram [facility] 08062493765 50 MG Orally Active 1 tablet as Three times a needed day Cozaar [facility] 46554864930 100 mg Orally Active 1 tablet Once a day Omeprazole [facility] 74617221378 20 mg Orally Active 1 capsule Once a day Cyclobenzaprine HCl [facility] 49730758913 10 MG Orally Active 1 tablet as Two times a needed day Cetirizine HCl [facility] 46859159616 10 MG Orally Active 1 tablet Once a day Methocarbamol [facility] 64896187088 500 MG Orally Aria Active 1-2 tablets Twice daily , as needed 2018 for muscle cramps/pain Results No Known Results Summary Purpose eClinicalWorks Submission
--- NOTE | 2018-01-27 14:18 | EDPHYS ---
Physician Documentation [facility] Name: Evelyn Rodgers Age: 57 yrs Sex: Female : 1960 Arrival Date: 01/27/2018 Time: 11:37 Bed 12 Private MD: Anisa Lucas ED Physician Honorio Nielsen HPI: 01/27 14:11 This 57 yrs old Black Female presents to ER via Wheelchair with complaints of CHRONIC rekha PAIN. 14:11 pain all over, hx of chronic pain. Onset: The symptoms/episode began/occurred 2 day(s) rekha ago. Severity of symptoms: At their worst the symptoms were mild moderate. Historical: - Allergies: 12:02 Levaquin; sv 12:02 PENICILLINS; sv 12:02 Ciprofloxacin; sv - PMHx: 12:02 Fibromyalgia; GERD; Hypertension; sv - PSHx: 12:02 breast reduction; partial hysterectomy; foot; Appendectomy; Cholecystectomy; rectocele; sv throat; nose; - Immunization history:: Flu vaccine is up to date. - Social history:: Smoking status: Patient uses tobacco products, denies chronic smoking, but will smoke occasionally. - Ebola Screening: : No symptoms or risks identified at this time. - Family history:: not pertinent. ROS: 14:11 Constitutional: Negative for fever, chills, and weight loss, Eyes: Negative for injury, rekha pain, redness, and discharge, ENT: Negative for injury, pain, and discharge, Neck: Negative for injury, pain, and swelling, Cardiovascular: Negative for chest pain, palpitations, and edema, Respiratory: Negative for shortness of breath, cough, wheezing, and pleuritic chest pain, Abdomen/GI: Negative for abdominal pain, nausea, vomiting, diarrhea, and constipation, Back: Negative for injury and pain, : Negative for injury, bleeding, discharge, and swelling, MS/Extremity: Negative for injury and deformity, Skin: Negative for injury, rash, and discoloration, Neuro: Negative for headache, weakness, numbness, tingling, and seizure, Psych: Negative for depression, anxiety, suicide ideation, homicidal ideation, and hallucinations, Allergy/Immunology: Negative for hives, rash, and allergies, Endocrine: Negative for neck swelling, polydipsia, polyuria, polyphagia, and marked weight changes, Hematologic/Lymphatic: Negative for swollen nodes, abnormal bleeding, and unusual bruising. Exam: 14:11 Constitutional: This is a well developed, well nourished patient who is awake, alert, rekha and in no acute distress. Head/Face: Normocephalic, atraumatic. Eyes: Pupils equal round and reactive to light, extra-ocular motions intact. Lids and lashes normal. Conjunctiva and sclera are non-icteric and not injected. Cornea within normal limits. Periorbital areas with no swelling, redness, or edema. ENT: Nares patent. No nasal discharge, no septal abnormalities noted. Tympanic membranes are normal and external auditory canals are clear. Oropharynx with no redness, swelling, or masses, exudates, or evidence of obstruction, uvula midline. Mucous membranes moist. Neck: Trachea midline, no thyromegaly or masses palpated, and no cervical lymphadenopathy. Supple, full range of motion without nuchal rigidity, or vertebral point tenderness. No Meningismus. Chest/axilla: Normal chest wall appearance and motion. Nontender with no deformity. No lesions are appreciated. Cardiovascular: Regular rate and rhythm with a normal S1 and S2. No gallops, murmurs, or rubs. Normal PMI, no JVD. No pulse deficits. Respiratory: Lungs have equal breath sounds bilaterally, clear to auscultation and percussion. No rales, rhonchi or wheezes noted. No increased work of breathing, no retractions or nasal flaring. Abdomen/GI: Soft, non-tender, with normal bowel sounds. No distension or tympany. No guarding or rebound. No evidence of tenderness throughout. Back: No spinal tenderness. No costovertebral tenderness. Full range of motion. Skin: Warm, dry with normal turgor. Normal color with no rashes, no lesions, and no evidence of cellulitis. MS/ Extremity: Pulses equal, no cyanosis. Neurovascular intact. Full, normal range of motion. Neuro: Awake and alert, GCS 15, oriented to person, place, time, and situation. Cranial nerves II-XII grossly intact. Motor strength 5/5 in all extremities. Sensory grossly intact. Cerebellar exam normal. Normal gait. Psych: Awake, alert, with orientation to person, place and time. Behavior, mood, and affect are within normal limits. Vital Signs: 12:02 BP 135 / 94; Pulse 64; Resp 20; Temp 97.6; Pulse Ox 99% ; Weight 104.33 kg; Height 5 sv ft. 6 in. (167.64 cm); Pain 08/23; 12:02 Body Mass Index 37.12 (104.33 kg, 167.64 cm) sv MDM: 13:51 Patient medically screened. [facility] Administered Medications: 14:33 Drug: Phenergan 25 mg Route: IM; Site: left gluteus; ss 14:50 Follow up: Response: No adverse reaction; Pain is decreased ss 14:35 Drug: Demerol 50 mg Route: IM; Site: right gluteus; ss 14:50 Follow up: Response: No adverse reaction; Pain is decreased ss Disposition: 01/27/18 14:17 Discharged to Home. Impression: Other chronic pain, Encounter for issue of repeat prescription - tylenol #3. - Condition is Stable. - Discharge Instructions: Chronic Pain, Myofascial Pain Syndrome and Fibromyalgia. - Prescriptions for Tylenol- Codeine #3 300-30 mg Oral Tablet - take 2 tablets by ORAL route every 6 hours As needed; 26 tablet. - Medication Reconciliation Form, Thank You Letter, Antibiotic Education, Prescription Opioid Use form. - Follow up: Anisa Lucas MD; When: 2 - 3 days; Reason: Recheck today's complaints, Continuance of care, Re-evaluation by your physician. Follow up: Alton Pierre DO; When: 2 - 3 days; Reason: Recheck today's complaints, Continuance of care, Re-evaluation by your physician. - Problem is new. - Symptoms have improved. Signatures: Jessica Batista RN RN Honorio Nielsen MD MD cha Smirch, Shelby, RN RN Corrections: (The following items were deleted from the chart) 14:51 14:17 01/27/2018 14:17 Discharged to Home. Impression: Other chronic pain; Encounter ss for issue of repeat prescription - tylenol #3. Condition is Stable. Forms are Medication Reconciliation Form, Thank You Letter, Antibiotic Education, Prescription Opioid Use. Follow up: Anisa Lucas; When: 2 - 3 days; Reason: Recheck today's complaints, Continuance of care, Re-evaluation by your physician. Follow up: Alton Pierre; When: 2 - 3 days; Reason: Recheck today's complaints, Continuance of care, Re-evaluation by your physician. Problem is new. Symptoms have improved. rekha
--- NOTE | 2018-01-27 14:18 | ER ---
Nurse's Notes [facility] Name: Evelyn Rodgers Age: 57 yrs Sex: Female : 1960 Arrival Date: 01/27/2018 Time: 11:37 Bed 12 Private MD: Anisa Lucas Diagnosis: Other chronic pain;Encounter for issue of repeat prescription-tylenol #3 Presentation: 01/27 12:01 Presenting complaint: Patient states: chronic fibromyalgia pain. Pt usually takes sv Tylenol #3 but is out of them. Transition of care: patient was not received from another setting of care. Onset of symptoms is unknown. Care prior to arrival: None. 12:01 Method Of Arrival: Wheelchair sv 12:01 Acuity: DARIUS 4 sv 13:30 Risk Assessment: Do you want to hurt yourself or someone else? Patient reports no ss desire to harm self or others. Initial Sepsis Screen: Does the patient meet any 2 criteria? No. Patient's initial sepsis screen is negative. Does the patient have a suspected source of infection? No. Patient's initial sepsis screen is negative. Triage Assessment: 12:01 General: Appears in no apparent distress. uncomfortable, Behavior is calm, cooperative, sv appropriate for age. Pain: Complains of pain in "all over" Pain currently is 7 out of 10 on a pain scale. Neuro: Level of Consciousness is awake, alert, obeys commands, Oriented to person, place, time, situation, Moves all extremities. Full function. Respiratory: Respiratory effort is even, unlabored, Respiratory pattern is regular, symmetrical. Historical: - Allergies: 12:02 Levaquin; sv 12:02 PENICILLINS; sv 12:02 Ciprofloxacin; sv - PMHx: 12:02 Fibromyalgia; GERD; Hypertension; sv - PSHx: 12:02 breast reduction; partial hysterectomy; foot; Appendectomy; Cholecystectomy; rectocele; sv throat; nose; - Immunization history:: Flu vaccine is up to date. - Social history:: Smoking status: Patient uses tobacco products, denies chronic smoking, but will smoke occasionally. - Ebola Screening: : No symptoms or risks identified at this time. - Family history:: not pertinent. Screenin:03 Abuse screen: Denies threats or abuse. Denies injuries from another. Nutritional ss screening: No deficits noted. Tuberculosis screening: No symptoms or risk factors identified. Never had TB. Fall Risk None identified. Assessment: 14:03 General: Appears in no apparent distress. comfortable, Behavior is calm, cooperative. ss Neuro: Level of Consciousness is awake, alert, obeys commands. Cardiovascular: Capillary refill < 3 seconds is brisk in bilateral fingers. Respiratory: Airway is patent Respiratory effort is even, unlabored, Respiratory pattern is regular, symmetrical. GI: No signs and/or symptoms were reported involving the gastrointestinal system. : No signs and/or symptoms were reported regarding the genitourinary system. EENT: Nares are clear Oral mucosa is moist. Throat is clear. Derm: Skin is intact, is healthy with good turgor, Skin is dry, Skin is pink, warm \\T\\ dry. normal. Musculoskeletal: Circulation, motion, and sensation intact. Range of motion: intact in all extremities, Swelling absent. Vital Signs: 12:02 BP 135 / 94; Pulse 64; Resp 20; Temp 97.6; Pulse Ox 99% ; Weight 104.33 kg; Height 5 sv ft. 6 in. (167.64 cm); Pain 7/10; 12:02 Body Mass Index 37.12 (104.33 kg, 167.64 cm) sv ED Course: 11:37 Patient arrived in ED. ag5 11:38 Anisa Lucas MD is Private Physician. ag5 12:01 Triage completed. sv 12:03 Arm band placed on. sv 13:51 Honorio Nielsen MD is Attending Physician. rekha 14:02 Mely Hawk, RANDY is Primary Nurse. ss 14:03 Patient has correct armband on for positive identification. Bed in low position. Call ss light in reach. Warm blanket given. 14:03 Patient maintains SpO2 saturation greater than 95% on room air. ss 14:15 Anisa Lucas MD is Referral Physician. rekha 14:15 Alton Pierre DO is Referral Physician. rekha 14:48 No provider procedures requiring assistance completed. Patient did not have IV access ss during this emergency room visit. Administered Medications: 14:33 Drug: Phenergan 25 mg Route: IM; Site: left gluteus; ss 14:50 Follow up: Response: No adverse reaction; Pain is decreased ss 14:35 Drug: Demerol 50 mg Route: IM; Site: right gluteus; ss 14:50 Follow up: Response: No adverse reaction; Pain is decreased Outcome: 14:17 Discharge ordered by MD. da silva 14:48 Discharged to home ambulatory. 14:48 Condition: good 14:48 Discharge instructions given to patient, Instructed on discharge instructions, follow up and referral plans. medication usage, Demonstrated understanding of instructions, follow-up care, medications, Prescriptions given X 1. 14:51 Patient left the ED. Signatures: Jessica Batista RN RN sv Anderson, Corey, MD MD cha Smirch, Shelby, RN RN ss Gaskin, Ajare ag5
[2018-01-27] MEDS ORDERED: PROMETHAZINE 25 MG/ML VIAL ONE (14:39)
[2018-01-27] MEDS ORDERED: MEPERIDINE HCL 50 MG/ML AMP ONE (14:39)
== END 2018-01-27 14:51 | disposition home or self-care (01) ==
LOC: ER 11:36
DX: Z76.0 Encounter for issue of repeat prescription (principal); I10 Essential (primary) hypertension; Z72.0 Tobacco use; Z88.0 Allergy status to penicillin; Z88.1 Allergy status to other antibiotic agents
CPT/HCPCS: 96372; 99284; J2175; J2550

== ENCOUNTER 2018-03-01 03:03 | Emergency (ER) | payer BC, OTHER ==
--- OUTSIDE RECORDS SUMMARY | 2018-03-01 03:06 | XMS REPORT ---
[...] End Status Dosage System Date Date Melatonin [facility] 04909403104 5 MG Orally Active 1 tablet at Once a day bedtime as needed with food Medrol [facility] 12775228692 4 MG Orally Active 1 tablet with food or milk in the morning Savella [facility] 02003323570 12.5 MG Active 1 tablet Orally Twice a day Betamethasone ND 59381678727 0.05 % Active 1 Dipropionate Externally application Twice a day to affected area Lortab 5 NDC 0 Active not defined Tramadol HCl ND 36638846732 50 MG Orally Timo Active 1 tablet as Twice daily 02, needed for 2019 pain Triamcinolone & NDC 0 0.1 % Active 1 Emollient Externally application Twice a day Estrace ND 48837823776 0.1 MG/GM Active not defined Vaginal Nystatin [facility] 61563917416 989983 Active 4 ml UNIT/ML Mouth/Throat Four times a day x10 days Trazodone HCl ND 58946335370 100 mg Orally Active 1 tablet at Once a day bedtime as needed for sleep Zoloft [facility] 03760456429 100 mg Orally Active 1 tablet Once a day Duloxetine HCl [facility] 64700505466 20 mg Orally Active 1 capsule Once a day Hydrochlorothiazide [facility] 77935914442 12.5 MG Active 1 tablet in Orally Once a the morning day Ondansetron HCl [facility] 19746440267 4 MG Orally Active not defined Twice daily Ultram [facility] 76432212965 50 MG Orally Active 1 tablet as Three times a needed day Cozaar [facility] 23725445908 100 mg Orally Active 1 tablet Once a day Omeprazole [facility] 10218597549 20 mg Orally Active 1 capsule Once a day Cyclobenzaprine HCl [facility] 20172610625 10 MG Orally Active 1 tablet as Two times a needed day Cetirizine HCl [facility] 90239397736 10 MG Orally Active 1 tablet Once a day Methocarbamol [facility] 67671298609 500 MG Orally Aria Active 1-2 tablets Twice daily , as needed 2018 for muscle cramps/pain Results No Known Results Summary Purpose eClinicalWorks Submission
--- OUTSIDE RECORDS SUMMARY | 2018-03-01 03:06 | XMS REPORT ---
[...] End Status Dosage System Date Date Zoloft [facility] 99869987402 100 mg Orally Active 1 tablet Once a day Cozaar ND 41117868843 100 mg Orally Active 1 tablet Once a day Methocarbamol ND 75905609496 500 MG Orally Sept Active 1-2 tablets every 6 hrs as 25, as needed needed 2017 for muscle cramps/pain Melatonin ND 71660517892 5 MG Orally Active 1 tablet at Once a day bedtime as needed with food Duloxetine HCl ND 77544867116 20 mg Orally Active 1 capsule Once a day Triamcinolone & NDC 0 0.1 % Active 1 Emollient Externally application Twice a day Hydrochlorothiazide ND 36861266696 12.5 MG Orally Active 1 tablet in Once a day the morning Cetirizine HCl ND 24676303742 10 MG Orally Active 1 tablet Once a day Ondansetron HCl [facility] 95167689118 4 MG Orally Active not defined Twice daily Nystatin [facility] 51417042171 700514 UNIT/ML Active 4 ml Mouth/Throat Four times a day x10 days Betamethasone [facility] 99718934772 0.05 % Active 1 Dipropionate Externally application Twice a day to affected area Medrol [facility] 16899880609 4 MG Orally Active 1 tablet with food or milk in the morning Ultram [facility] 53507757850 50 MG Orally Active 1 tablet as Three times a needed day Omeprazole [facility] 27660987740 20 mg Orally Active 1 capsule Once a day Trazodone HCl [facility] 69457044145 100 MG Orally Active 1 tablet at Once a day bedtime as needed for sleep Tramadol HCl [facility] 23643220418 50 MG Orally Active 1 tablet as 3x daily needed Savella [facility] 75243641700 12.5 MG Orally Active 1 tablet Twice a day Estrace [facility] 22266590648 0.1 MG/GM Active not defined Vaginal Lortab 5 NDC 0 Active not defined Cyclobenzaprine HCl [facility] 21123990649 10 MG Orally Active 1 tablet as Two times a needed day Results No Known Results Summary Purpose eClinicalWorks Submission
--- OUTSIDE RECORDS SUMMARY | 2018-03-01 03:06 | XMS REPORT ---
:1960 Author Organization [facility] Address [address] [place] [address] Dr. Segura [address] [place] [id number] Care Team Providers Name Role Phone Unavailable Unavailable Unavailable Problems This patient has no known problems. Allergies, Adverse Reactions, Alerts This patient has no known allergies or adverse reactions. Medications This patient has no known medications.
--- NOTE | 2018-03-01 03:57 | EDPHYS ---
Physician Documentation [facility] Name: Evelyn Rodgers Age: 57 yrs Sex: Female : 1960 Arrival Date: 03/01/2018 Time: 03:08 Bed 6 Private MD: Honorio Berry HPI: 03/01 03:52 This 57 yrs old Black Female presents to ER via Ambulatory with complaints of JOINT rekha PAIN, Vaginal Discharge. 03:52 The patient presents with a possible exposure to a sexually transmitted disease, rekha herpes. Onset: The symptoms/episode began/occurred 3 day(s) ago. Modifying factors: The symptoms are alleviated by nothing, the symptoms are aggravated by nothing. Associated signs and symptoms: The patient has no apparent associated signs or symptoms. Severity of symptoms: At their worst the symptoms were mild. The patient is not sexually active. The patient has not experienced similar symptoms in the past. Historical: - Allergies: 03:39 Ciprofloxacin; ea 03:39 Levaquin; ea 03:39 PENICILLINS; ea - Home Meds: 03:39 hydrochlorothiazide 12.5 mg Oral cap 1 cap once daily [Active]; losartan 100 mg Oral ea tab 1 tab once daily [Active]; omeprazole 20 mg Oral cpDR 1 cap once daily [Active]; tramadol 50 mg Oral tab 1 tab every 4-6 hours [Active]; - PMHx: 03:39 Fibromyalgia; GERD; Hypertension; ea - PSHx: 03:39 nose; breast reduction; Appendectomy; Cholecystectomy; partial hysterectomy; rectocele; ea foot; - Immunization history:: Adult Immunizations up to date. - Social history:: Smoking status: Patient/guardian denies using tobacco. - Ebola Screening: : No symptoms or risks identified at this time. - Family history:: not pertinent. ROS: 03:52 Constitutional: Negative for fever, chills, and weight loss, Eyes: Negative for injury, rekha pain, redness, and discharge, ENT: Negative for injury, pain, and discharge, Neck: Negative for injury, pain, and swelling, Cardiovascular: Negative for chest pain, palpitations, and edema, Respiratory: Negative for shortness of breath, cough, wheezing, and pleuritic chest pain, Abdomen/GI: Negative for abdominal pain, nausea, vomiting, diarrhea, and constipation, Back: Negative for injury and pain, : Negative for injury, bleeding, discharge, and swelling, MS/Extremity: Negative for injury and deformity, Neuro: Negative for headache, weakness, numbness, tingling, and seizure, Psych: Negative for depression, anxiety, suicide ideation, homicidal ideation, and hallucinations, Allergy/Immunology: Negative for hives, rash, and allergies, Endocrine: Negative for neck swelling, polydipsia, polyuria, polyphagia, and marked weight changes, Hematologic/Lymphatic: Negative for swollen nodes, abnormal bleeding, and unusual bruising. 03:52 Skin: Positive for of the groin. Exam: 03:52 Constitutional: This is a well developed, well nourished patient who is awake, alert, rekha and in no acute distress. Head/Face: Normocephalic, atraumatic. Eyes: Pupils equal round and reactive to light, extra-ocular motions intact. Lids and lashes normal. Conjunctiva and sclera are non-icteric and not injected. Cornea within normal limits. Periorbital areas with no swelling, redness, or edema. ENT: Nares patent. No nasal discharge, no septal abnormalities noted. Tympanic membranes are normal and external auditory canals are clear. Oropharynx with no redness, swelling, or masses, exudates, or evidence of obstruction, uvula midline. Mucous membranes moist. Neck: Trachea midline, no thyromegaly or masses palpated, and no cervical lymphadenopathy. Supple, full range of motion without nuchal rigidity, or vertebral point tenderness. No Meningismus. Chest/axilla: Normal chest wall appearance and motion. Nontender with no deformity. No lesions are appreciated. Cardiovascular: Regular rate and rhythm with a normal S1 and S2. No gallops, murmurs, or rubs. Normal PMI, no JVD. No pulse deficits. Respiratory: Lungs have equal breath sounds bilaterally, clear to auscultation and percussion. No rales, rhonchi or wheezes noted. No increased work of breathing, no retractions or nasal flaring. Abdomen/GI: Soft, non-tender, with normal bowel sounds. No distension or tympany. No guarding or rebound. No evidence of tenderness throughout. Back: No spinal tenderness. No costovertebral tenderness. Full range of motion. MS/ Extremity: Pulses equal, no cyanosis. Neurovascular intact. Full, normal range of motion. Neuro: Awake and alert, GCS 15, oriented to person, place, time, and situation. Cranial nerves II-XII grossly intact. Motor strength 5/5 in all extremities. Sensory grossly intact. Cerebellar exam normal. Normal gait. Psych: Awake, alert, with orientation to person, place and time. Behavior, mood, and affect are within normal limits. 03:52 Skin: hsv right labia. Vital Signs: 03:31 BP 155 / 112; Pulse 89; Resp 18; Temp 98.2; Pulse Ox 98% on R/A; Weight 104.33 kg; ea Height 5 ft. 6 in. (167.64 cm); 04:03 BP 135 / 85; Pulse 85; Resp 18; Pulse Ox 97% on R/A; aa1 03:31 Body Mass Index 37.12 (104.33 kg, 167.64 cm) ea MDM: 03:30 Patient medically screened. [facility] 03:58 Data reviewed: vital signs, nurses notes. [facility] Administered Medications: 03:57 CANCELLED (Duplicate Order): morphine 5 mg IM once [facility] 04:01 Drug: Phenergan 25 mg Route: IM; Site: left gluteus; aa1 04:10 Follow up: Response: No adverse reaction; Medication administered at discharge. aa1 04:01 Drug: morphine 4 mg Route: IM; Site: left gluteus; aa1 04:10 Follow up: Response: No adverse reaction; Medication administered at discharge. aa 04:02 Drug: Valtrex 1000 mg Route: PO; aa1 04:10 Follow up: Response: No adverse reaction; Medication administered at discharge. [facility] Disposition: 03/01/18 03:56 Discharged to Home. 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 - Condition is Stable. - Discharge Instructions: Genital Herpes. - Prescriptions for Valtrex 1 g Oral Tablet - take 1 tablet by ORAL route every 8 hours for 7 days; 21 tablet. - Medication Reconciliation Form, Thank You Letter, Antibiotic Education, Prescription Opioid Use form. - Follow up: Private Physician; When: 2 - 3 days; Reason: Recheck today's complaints, Continuance of care, Re-evaluation by your physician. - Problem is new. - Symptoms have improved. Signatures: Hortensia Galvez RN RN aa1 Honorio Nielsen MD MD cha Antunez, Elena, RN RN ea Corrections: (The following items were deleted from the chart) 03:57 03:52 morphine 5 mg IM once ordered. rekha [facility] 04:09 03:56 03/01/2018 03:56 Discharged to Home. Impression: Herpesviral [herpes simplex] aa1 infections. Condition is Stable. Forms are Medication Reconciliation Form, Thank You Letter, Antibiotic Education, Prescription Opioid Use. Follow up: Private Physician; When: 2 - 3 days; Reason: Recheck today's complaints, Continuance of care, Re-evaluation by your physician. Problem is new. Symptoms have improved. rekha
--- NOTE | 2018-03-01 03:57 | ER ---
Nurse's Notes [facility] Name: Evelyn Rodgers Age: 57 yrs Sex: Female : 1960 Arrival Date: 03/01/2018 Time: 03:08 Bed 6 Private MD: Diagnosis: Herpesviral [herpes simplex] infections Presentation: 03/01 03:27 Presenting complaint: Patient states: Pt states she went to [facility] ED last week ea with joint pain and body aches and was prescribed Pyridium. Pt states "I feel like the infection has gotten worse, I feel like I have infection in my ears, and the joint pain is so bad it caused lesions in my bottom area" Pt reports she has blisters that started this week in perineal area. Transition of care: patient was not received from another setting of care. Onset of symptoms was March 01, 2018. Risk Assessment: Do you want to hurt yourself or someone else? Patient reports no desire to harm self or others. Initial Sepsis Screen: Does the patient meet any 2 criteria? No. Patient's initial sepsis screen is negative. Does the patient have a suspected source of infection? No. Patient's initial sepsis screen is negative. Care prior to arrival: None. 03:27 Method Of Arrival: Ambulatory ea 03:27 Acuity: DARIUS 3 ea Historical: - Allergies: 03:39 Ciprofloxacin; ea 03:39 Levaquin; ea 03:39 PENICILLINS; ea - Home Meds: 03:39 hydrochlorothiazide 12.5 mg Oral cap 1 cap once daily [Active]; losartan 100 mg Oral ea tab 1 tab once daily [Active]; omeprazole 20 mg Oral cpDR 1 cap once daily [Active]; tramadol 50 mg Oral tab 1 tab every 4-6 hours [Active]; - PMHx: 03:39 Fibromyalgia; GERD; Hypertension; ea - PSHx: 03:39 nose; breast reduction; Appendectomy; Cholecystectomy; partial hysterectomy; rectocele; ea foot; - Immunization history:: Adult Immunizations up to date. - Social history:: Smoking status: Patient/guardian denies using tobacco. - Ebola Screening: : No symptoms or risks identified at this time. - Family history:: not pertinent. Screenin:32 Abuse screen: Denies threats or abuse. Nutritional screening: No deficits noted. ea Tuberculosis screening: No symptoms or risk factors identified. Fall Risk None identified. Assessment: 03:30 General: Appears in no apparent distress. comfortable, Behavior is calm, cooperative, aa1 appropriate for age. Pain: Complains of pain in groin. Neuro: Level of Consciousness is awake, alert, obeys commands, Oriented to person, place, time, situation. Respiratory: Airway is patent Respiratory effort is even, unlabored, Respiratory pattern is regular, symmetrical. GI: No signs and/or symptoms were reported involving the gastrointestinal system. : Lesions noted. EENT: No signs and/or symptoms were reported regarding the EENT system. Derm: Skin is intact, is healthy with good turgor, Skin is pink, warm \\T\\ dry. Musculoskeletal: Circulation, motion, and sensation intact. Capillary refill < 3 seconds. 04:07 Reassessment: Patient appears in no apparent distress at this time. Patient is alert, aa1 oriented x 3, equal unlabored respirations, skin warm/dry/pink. Discussed d/c \\T\\ f/u instructions with pt \\T\\ spouse; denies questions or concerns at this time. Vital Signs: 03:31 BP 155 / 112; Pulse 89; Resp 18; Temp 98.2; Pulse Ox 98% on R/A; Weight 104.33 kg; ea Height 5 ft. 6 in. (167.64 cm); 04:03 BP 135 / 85; Pulse 85; Resp 18; Pulse Ox 97% on R/A; aa1 03:31 Body Mass Index 37.12 (104.33 kg, 167.64 cm) ea ED Course: 03:08 Patient arrived in ED. es 03:20 Arm band placed on right wrist. Patient placed in an exam room, on a stretcher, on ea pulse oximetry. 03:25 X-ray completed. Portable x-ray completed in exam room. Patient tolerated procedure kw well. 03:27 Patient has correct armband on for positive identification. Placed in gown. Bed in low ea position. Call light in reach. 03:30 Triage completed. ea 03:30 Honorio Nielsen MD is Attending Physician. [facility] 04:00 Hortensia Galvez RN is Primary Nurse. aa1 04:07 No provider procedures requiring assistance completed. IV discontinued, intact, aa1 bleeding controlled, No redness/swelling at site. Pressure dressing applied. Administered Medications: 03:57 CANCELLED (Duplicate Order): morphine 5 mg IM once rekha 04:01 Drug: Phenergan 25 mg Route: IM; Site: left gluteus; aa1 04:10 Follow up: Response: No adverse reaction; Medication administered at discharge. aa1 04:01 Drug: morphine 4 mg Route: IM; Site: left gluteus; aa1 04:10 Follow up: Response: No adverse reaction; Medication administered at discharge. aa1 04:02 Drug: Valtrex 1000 mg Route: PO; aa1 04:10 Follow up: Response: No adverse reaction; Medication administered at discharge. aa1 Outcome: 03:56 Discharge ordered by . rekha 04:07 Discharged to home ambulatory, with significant other. aa1 04:07 Condition: good 04:07 Discharge instructions given to patient, significant other, Instructed on discharge instructions, follow up and referral plans. medication usage, Demonstrated understanding of instructions, follow-up care, medications, Prescriptions given X 1. 04:09 Patient left the ED. aa1 Signatures: Hortensia Galvez RN RN aa1 Honorio Nielsen MD MD cha Salyer, Edna es Whitley, Kimberlee kw Antunez, Elena, RN RN [place]
[2018-03-01] MEDS ORDERED: PROMETHAZINE 25 MG/ML VIAL ONE (04:04)
[2018-03-01] MEDS ORDERED: VALACYCLOVIR 500 MG TAB ONE (04:05)
[2018-03-01] MEDS ORDERED: MORPHINE 4 MG/ML SYR ONE (04:05)
== END 2018-03-01 04:09 | disposition home or self-care (01) ==
LOC: ER 03:03
DX: B00.1 Herpesviral vesicular dermatitis (principal); M79.7 Fibromyalgia; I10 Essential (primary) hypertension; K21.9 Gastro-esophageal reflux disease without esophagitis; Z79.899 Other long term (current) drug therapy
CPT/HCPCS: 96372; 99283; J2550

== ENCOUNTER 2018-05-15 10:28 | Emergency (ER) | payer BC ==
--- OUTSIDE RECORDS SUMMARY | 2018-05-15 10:29 | XMS REPORT ---
[...] System Date Date Zoloft [facility] 31330111025 100 mg Orally Active 1 tablet Once a day Cozaar ND 91368427024 100 mg Orally Active 1 tablet Once a day Methocarbamol ND 91217027882 500 MG Orally Sept Active 1-2 tablets every 6 hrs as 25, as needed needed 2017 for muscle cramps/pain Melatonin ND 15866268911 5 MG Orally Active 1 tablet at Once a day bedtime as needed with food Duloxetine HCl ND 11172272202 20 mg Orally Active 1 capsule Once a day Triamcinolone & NDC 0 0.1 % Active 1 Emollient Externally application Twice a day Hydrochlorothiazide ND 01096914099 12.5 MG Orally Active 1 tablet in Once a day the morning Cetirizine HCl ND 27226135672 10 MG Orally Active 1 tablet Once a day Ondansetron HCl [facility] 56702968502 4 MG Orally Active not defined Twice daily Nystatin [facility] 92382108704 647122 UNIT/ML Active 4 ml Mouth/Throat Four times a day x10 days Betamethasone [facility] 79915428964 0.05 % Active 1 Dipropionate Externally application Twice a day to affected area Medrol [facility] 05874072085 4 MG Orally Active 1 tablet with food or milk in the morning Ultram [facility] 06448208013 50 MG Orally Active 1 tablet as Three times a needed day Omeprazole [facility] 94755390348 20 mg Orally Active 1 capsule Once a day Trazodone HCl [facility] 20474104561 100 MG Orally Active 1 tablet at Once a day bedtime as needed for sleep Tramadol HCl [facility] 44778790752 50 MG Orally Active 1 tablet as 3x daily needed Savella [facility] 71433901278 12.5 MG Orally Active 1 tablet Twice a day Estrace [facility] 31324940049 0.1 MG/GM Active not defined Vaginal Lortab 5 NDC 0 Active not defined Cyclobenzaprine HCl [facility] 60843036489 10 MG Orally Active 1 tablet as Two times a needed day Results No Known Results Summary Purpose eClinicalWorks Submission
--- OUTSIDE RECORDS SUMMARY | 2018-05-15 10:30 | XMS REPORT ---
:1960 [facility] Address [address] [place] [address] Dr. Segura [address] [place] [id number] Care Team Providers Name Role Phone Unavailable Unavailable Unavailable Problems This patient has no known problems. Allergies, Adverse Reactions, Alerts This patient has no known allergies or adverse reactions. Medications This patient has no known medications.
--- OUTSIDE RECORDS SUMMARY | 2018-05-15 10:30 | XMS REPORT ---
[...] End Status Dosage System Date Date Melatonin [facility] 96054034380 5 MG Orally Active 1 tablet at Once a day bedtime as needed with food Medrol [facility] 98030372673 4 MG Orally Active 1 tablet with food or milk in the morning Savella [facility] 74083472104 12.5 MG Active 1 tablet Orally Twice a day Betamethasone ND 66193415310 0.05 % Active 1 Dipropionate Externally application Twice a day to affected area Lortab 5 NDC 0 Active not defined Tramadol HCl ND 05189976141 50 MG Orally Timo Active 1 tablet as Twice daily 02, needed for 2019 pain Triamcinolone & NDC 0 0.1 % Active 1 Emollient Externally application Twice a day Estrace ND 70290903467 0.1 MG/GM Active not defined Vaginal Nystatin [facility] 18037476696 842644 Active 4 ml UNIT/ML Mouth/Throat Four times a day x10 days Trazodone HCl ND 92124150840 100 mg Orally Active 1 tablet at Once a day bedtime as needed for sleep Zoloft [facility] 58346472421 100 mg Orally Active 1 tablet Once a day Duloxetine HCl [facility] 55734012609 20 mg Orally Active 1 capsule Once a day Hydrochlorothiazide [facility] 44511015339 12.5 MG Active 1 tablet in Orally Once a the morning day Ondansetron HCl [facility] 40013060221 4 MG Orally Active not defined Twice daily Ultram [facility] 89021331176 50 MG Orally Active 1 tablet as Three times a needed day Cozaar [facility] 76277809055 100 mg Orally Active 1 tablet Once a day Omeprazole [facility] 35225881847 20 mg Orally Active 1 capsule Once a day Cyclobenzaprine HCl [facility] 21598507834 10 MG Orally Active 1 tablet as Two times a needed day Cetirizine HCl [facility] 96089124057 10 MG Orally Active 1 tablet Once a day Methocarbamol [facility] 31573578160 500 MG Orally Aria Active 1-2 tablets Twice daily , as needed 2018 for muscle cramps/pain Results No Known Results Summary Purpose eClinicalWorks Submission
[2018-05-15] MEDS ORDERED: HYDROCODONE/APAP 7.5/325 MG TAB ONE (11:20)
[2018-05-15] MEDS ORDERED: DEXAMETHASONE 10 MG/ML VIAL ONE (11:20)
--- NOTE | 2018-05-15 11:51 | RAD REPORT ---
EXAM DESCRIPTION: RAD - Knee Left 3 View - 05/15/2018 11:16 am CLINICAL HISTORY: PAIN Fall, pain COMPARISON: No comparisons FINDINGS: Arthritic changes are present particularly notable in the patellofemoral joint. Small supr apatellar joint effusion is evident. No evidence of an acute fracture or dislocation.
--- NOTE | 2018-05-15 12:04 | EDPHYS ---
Physician Documentation [facility] Name: Evelyn Rodgers Age: 57 yrs Sex: Female : 1960 Arrival Date: 05/15/2018 Time: 10:30 Bed 9 Private MD: ED Physician Honorio Nielsen HPI: 05/15 12:01 This 57 yrs old Black Female presents to ER via Wheelchair with complaints of Knee Pain.kb 12:01 The patient presents with pain, that is acute, swelling, tenderness. The complaints kb affect the left knee. Context: The problem was sustained at home, resulted from a chronic condition, after an old injury, the patient can fully bear weight, the patient is able to ambulate, with mild difficulty. Onset: The symptoms/episode began/occurred 3 week(s) ago. Modifying factors: The symptoms are alleviated by nothing. the symptoms are aggravated by weight bearing. Associated signs and symptoms: Pertinent positives: swelling, Pertinent negatives calf tenderness, fever, nausea, numbness, rash, tingling, vomiting, warmth, weakness. Treatment prior to arrival includes: no previous treatment. Severity of symptoms: At their worst the symptoms were mild, moderate, in the emergency department the symptoms are unchanged. The patient has experienced similar episodes in the past, several times. The patient has not recently seen a physician. Historical: - Allergies: 10:47 Ciprofloxacin; sv 10:47 Levaquin; sv 10:47 PENICILLINS; sv - PMHx: 10:47 Fibromyalgia; GERD; Hypertension; sv - PSHx: 10:47 nose; Cholecystectomy; Appendectomy; breast reduction; partial hysterectomy; rectocele; sv foot; - Immunization history:: Adult Immunizations up to date. - Social history:: Smoking status: unknown. - Ebola Screening: : Patient denies exposure to infectious person Patient denies travel to an Ebola-affected area in the 21 days before illness onset. ROS: 12:00 Constitutional: Negative for fever, chills, and weight loss, Cardiovascular: Negative kb for chest pain, palpitations, and edema, Respiratory: Negative for shortness of breath, cough, wheezing, and pleuritic chest pain, Abdomen/GI: Negative for abdominal pain, nausea, vomiting, diarrhea, and constipation, Back: Negative for injury and pain, Skin: Negative for injury, rash, and discoloration, Neuro: Negative for headache, weakness, numbness, tingling, and seizure. 12:00 MS/extremity: Positive for decreased range of motion, pain, swelling, tenderness, of the left knee. Exam: 12:00 Constitutional: This is a well developed, well nourished patient who is awake, alert, kb and in no acute distress. Head/Face: Normocephalic, atraumatic. Chest/axilla: Normal chest wall appearance and motion. Nontender with no deformity. No lesions are appreciated. Cardiovascular: Regular rate and rhythm with a normal S1 and S2. No gallops, murmurs, or rubs. Normal PMI, no JVD. No pulse deficits. Respiratory: Lungs have equal breath sounds bilaterally, clear to auscultation and percussion. No rales, rhonchi or wheezes noted. No increased work of breathing, no retractions or nasal flaring. Abdomen/GI: Soft, non-tender, with normal bowel sounds. No distension or tympany. No guarding or rebound. No evidence of tenderness throughout. Skin: Warm, dry with normal turgor. Normal color with no rashes, no lesions, and no evidence of cellulitis. Neuro: Awake and alert, GCS 15, oriented to person, place, time, and situation. Cranial nerves II-XII grossly intact. Motor strength 5/5 in all extremities. Sensory grossly intact. Cerebellar exam normal. Normal gait. 12:00 Musculoskeletal/extremity: Extremities: grossly normal except: noted in the left knee: decreased ROM, pain, swelling, tenderness, ROM: intact in all extremities, Circulation is intact in all extremities. Sensation intact. Weight bearing: able to fully bear weight. Vital Signs: 10:47 BP 127 / 80; Pulse 86; Resp 16; Temp 98.2; Pulse Ox 100% ; Weight 105.23 kg; Height 5 sv ft. 6 in. (167.64 cm); Pain 9/10; 10:47 Body Mass Index 37.44 (105.23 kg, 167.64 cm) sv MDM: 10:48 Patient medically screened. kb 11:57 Data reviewed: vital signs, nurses notes. Data interpreted: Pulse oximetry: on room air kb is 100 %. Interpretation: normal. Counseling: I had a detailed discussion with the patient and/or guardian regarding: the historical points, exam findings, and any diagnostic results supporting the discharge/admit diagnosis, radiology results, the need for outpatient follow up, a family practitioner, a orthopedic surgeon, to return to the emergency department if symptoms worsen or persist or if there are any questions or concerns that arise at home. 05/15 10:56 Order name: Knee Left 3 View XRAY; Complete Time: 11:52 kb Administered Medications: 11:16 Drug: Decadron 10 mg Route: IM; Site: left gluteus; ss 12:10 Follow up: Response: No adverse reaction; Pain is decreased ss 11:17 Drug: [place] (7.5 mg-325 mg) 1 tabs Route: PO; ss 12:10 Follow up: Response: No adverse reaction; Marked relief of symptoms ss Disposition: 12:13 Co-signature as Attending Physician, Honorio Nielsen MD I agree with the assessment and rekha plan of care. PA/AIR QUALITY INSTRUMENT SPECIALIST's history reviewed, patient interviewed, and examined. Disposition: 05/15/18 12:03 Discharged to Home. Impression: Pain in left knee. - Condition is Stable. - Discharge Instructions: Knee Pain, [id number]. - Prescriptions for Medrol (David) 4 mg Oral Tablets, Dose Pack - take 1 tablet by ORAL route as directed - follow package instructions; 1 packet. - Medication Reconciliation Form, Thank You Letter, Antibiotic Education, Prescription Opioid Use form. - Follow up: Emergency Department; When: As needed; Reason: Worsening of condition. Follow up: Private Physician; When: 2 - 3 days; Reason: Recheck today's complaints, Continuance of care, Re-evaluation by your physician. Signatures: Dispatcher [employer] Thu Doe, MARVEL NIXON-Jessica Gamez, RN Honorio Dick MD MD cha Smirch, Shelby, RN RN ss Corrections: (The following items were deleted from the chart) 12:12 12:03 05/15/2018 12:03 Discharged to Home. Impression: Pain in left knee. Condition is ss Stable. Forms are Medication Reconciliation Form, Thank You Letter, Antibiotic Education, Prescription Opioid Use. Follow up: Emergency Department; When: As needed; Reason: Worsening of condition. Follow up: Private Physician; When: 2 - 3 days; Reason: Recheck today's complaints, Continuance of care, Re-evaluation by your physician. kb
--- NOTE | 2018-05-15 12:04 | ER ---
Nurse's Notes [facility] Name: Evelyn Rodgers Age: 57 yrs Sex: Female : 1960 Arrival Date: 05/15/2018 Time: 10:30 Bed 9 Private MD: Diagnosis: Pain in left knee Presentation: 05/15 10:45 Presenting complaint: Patient states: right knee pain/swelling x 3 weeks. Reports sv falling on it "years ago". Reports that she has been exercising more than normal. Transition of care: patient was not received from another setting of care. Onset of symptoms was April 24, 2018. Care prior to arrival: None. 10:45 Method Of Arrival: Wheelchair sv 10:45 Acuity: DARIUS 4 sv 12:12 Risk Assessment: Do you want to hurt yourself or someone else? Patient reports no ss desire to harm self or others. Initial Sepsis Screen: Does the patient meet any 2 criteria? No. Patient's initial sepsis screen is negative. Does the patient have a suspected source of infection? No. Patient's initial sepsis screen is negative. Historical: - Allergies: 10:47 Ciprofloxacin; sv 10:47 Levaquin; sv 10:47 PENICILLINS; sv - PMHx: 10:47 Fibromyalgia; GERD; Hypertension; sv - PSHx: 10:47 nose; Cholecystectomy; Appendectomy; breast reduction; partial hysterectomy; rectocele; sv foot; - Immunization history:: Adult Immunizations up to date. - Social history:: Smoking status: unknown. - Ebola Screening: : Patient denies exposure to infectious person Patient denies travel to an Ebola-affected area in the 21 days before illness onset. Screenin:15 Abuse screen: Denies threats or abuse. Denies injuries from another. Nutritional ss screening: No deficits noted. Fall Risk None identified. 12:12 Tuberculosis screening: No symptoms or risk factors identified. ss Assessment: 11:15 General: Appears in no apparent distress. comfortable, Behavior is calm, cooperative, ss Denies fever, feeling ill, fatigue, chills. Pain: Complains of pain in right knee Pain currently is 9 out of 10 on a pain scale. Quality of pain is described as aching, tender, Pain began 3 weeks ago. Is continuous, Aggravated by increased activity, weight bearing. Neuro: Level of Consciousness is awake, alert, obeys commands, Oriented to person, place, time, situation. Cardiovascular: Capillary refill < 3 seconds in bilateral fingers. Respiratory: Airway is patent Respiratory effort is even, unlabored, Respiratory pattern is regular, symmetrical. GI: No signs and/or symptoms were reported involving the gastrointestinal system. EENT: Nares are clear Oral mucosa is moist. Throat is clear. Derm: Skin is intact, is healthy with good turgor, Skin is dry, Skin is pink, warm \\T\\ dry. normal. Musculoskeletal: Circulation, motion, and sensation intact. Range of motion: intact in all extremities, Swelling absent. Vital Signs: 10:47 BP 127 / 80; Pulse 86; Resp 16; Temp 98.2; Pulse Ox 100% ; Weight 105.23 kg; Height 5 sv ft. 6 in. (167.64 cm); Pain 9/10; 10:47 Body Mass Index 37.44 (105.23 kg, 167.64 cm) sv ED Course: 10:30 Patient arrived in ED. as 10:46 Triage completed. sv 10:47 Arm band placed on. sv 10:48 Thu Rizo FNP-C is PHCP. kb 10:48 Honorio Nielsen MD is Attending Physician. kb 11:05 Mely Hawk RN is Primary Nurse. ss 11:14 X-ray completed. Portable x-ray completed in exam room. Patient tolerated procedure mh1 well. 11:15 Patient has correct armband on for positive identification. Bed in low position. Call ss light in reach. 11:17 Knee Left 3 View XRAY In Process Unspecified. EDMS 12:11 No provider procedures requiring assistance completed. Patient did not have IV access ss during this emergency room visit. Administered Medications: 11:16 Drug: Decadron 10 mg Route: IM; Site: left gluteus; ss 12:10 Follow up: Response: No adverse reaction; Pain is decreased ss 11:17 Drug: [place] (7.5 mg-325 mg) 1 tabs Route: PO; ss 12:10 Follow up: Response: No adverse reaction; Marked relief of symptoms ss Outcome: 12:03 Discharge ordered by MD. kb 12:11 Discharged to home ambulatory. ss 12:11 Condition: good 12:11 Discharge instructions given to patient, family, Instructed on discharge instructions, follow up and referral plans. medication usage, Demonstrated understanding of instructions, follow-up care, medications, Prescriptions given X 1. 12:12 Patient left the ED. ss Signatures: Dispatcher [employer] Thu Doe, Jessica Neri RN RN Aliza Ray [facility] Annika Noland Shelby, RN RN ss Corrections: (The following items were deleted from the chart) 10:48 10:47 Pulse 86bpm; Resp 16bpm; Pulse Ox 100%; Temp 98.2F; 105.23 kg; Height 5 ft. 6 sv in.; BMI: 37.4; Pain 9/10; sv
== END 2018-05-15 12:12 | disposition home or self-care (01) ==
LOC: ER 10:28
DX: M25.562 Pain in left knee (principal); I10 Essential (primary) hypertension; Z88.1 Allergy status to other antibiotic agents; Z88.0 Allergy status to penicillin
CPT/HCPCS: 96372; 99283; J1100

== ENCOUNTER 2019-02-13 00:23 | Emergency (ER) | payer BC, OTHER ==
--- OUTSIDE RECORDS SUMMARY | 2019-02-13 00:26 | XMS REPORT ---
[...] End Status Dosage System Date Date Zoloft [facility] 69361996455 100 mg Orally Active 1 tablet Once a day Cozaar ND 43055843917 100 mg Orally Active 1 tablet Once a day Methocarbamol ND 72123025694 500 MG Orally Sept Active 1-2 tablets every 6 hrs as 25, as needed needed 2017 for muscle cramps/pain Melatonin ND 63933012850 5 MG Orally Active 1 tablet at Once a day bedtime as needed with food Duloxetine HCl ND 32696090943 20 mg Orally Active 1 capsule Once a day Triamcinolone & NDC 0 0.1 % Active 1 Emollient Externally application Twice a day Hydrochlorothiazide ND 11933274987 12.5 MG Orally Active 1 tablet in Once a day the morning Cetirizine HCl ND 83885553544 10 MG Orally Active 1 tablet Once a day Ondansetron HCl [facility] 60954852353 4 MG Orally Active not defined Twice daily Nystatin [facility] 22696233196 779031 UNIT/ML Active 4 ml Mouth/Throat Four times a day x10 days Betamethasone [facility] 22073356227 0.05 % Active 1 Dipropionate Externally application Twice a day to affected area Medrol [facility] 67972046448 4 MG Orally Active 1 tablet with food or milk in the morning Ultram [facility] 54851507477 50 MG Orally Active 1 tablet as Three times a needed day Omeprazole [facility] 81329494381 20 mg Orally Active 1 capsule Once a day Trazodone HCl [facility] 99002971144 100 MG Orally Active 1 tablet at Once a day bedtime as needed for sleep Tramadol HCl [facility] 77349535193 50 MG Orally Active 1 tablet as 3x daily needed Savella [facility] 33171011011 12.5 MG Orally Active 1 tablet Twice a day Estrace [facility] 21603052049 0.1 MG/GM Active not defined Vaginal Lortab 5 NDC 0 Active not defined Cyclobenzaprine HCl [facility] 87325492491 10 MG Orally Active 1 tablet as Two times a needed day Results No Known Results Summary Purpose eClinicalWorks Submission
--- OUTSIDE RECORDS SUMMARY | 2019-02-13 00:26 | XMS REPORT ---
:1960 Author Organization eClinical[employer] Care Team Providers Name Role Phone Anisa Luacs Provider Role Unavailable Allergies, Adverse Reactions, Alerts [...] End Status Dosage System Date Date Melatonin [facility] 65943103590 5 MG Orally Active 1 tablet at Once a day bedtime as needed with food Medrol [facility] 17469179111 4 MG Orally Active 1 tablet with food or milk in the morning Savella [facility] 16098142237 12.5 MG Active 1 tablet Orally Twice a day Betamethasone ND 92005708101 0.05 % Active 1 Dipropionate Externally application Twice a day to affected area Lortab 5 NDC 0 Active not defined Tramadol HCl ND 59006706898 50 MG Orally Timo Active 1 tablet as Twice daily 02, needed for 2019 pain Triamcinolone & NDC 0 0.1 % Active 1 Emollient Externally application Twice a day Estrace ND 80796369169 0.1 MG/GM Active not defined Vaginal Nystatin [facility] 29534567877 148377 Active 4 ml UNIT/ML Mouth/Throat Four times a day x10 days Trazodone HCl ND 74096516783 100 mg Orally Active 1 tablet at Once a day bedtime as needed for sleep Zoloft [facility] 40261611782 100 mg Orally Active 1 tablet Once a day Duloxetine HCl [facility] 34342163415 20 mg Orally Active 1 capsule Once a day Hydrochlorothiazide [facility] 74279075671 12.5 MG Active 1 tablet in Orally Once a the morning day Ondansetron HCl [facility] 37557265344 4 MG Orally Active not defined Twice daily Ultram [facility] 24260150445 50 MG Orally Active 1 tablet as Three times a needed day Cozaar [facility] 12548696508 100 mg Orally Active 1 tablet Once a day Omeprazole [facility] 06145285194 20 mg Orally Active 1 capsule Once a day Cyclobenzaprine HCl [facility] 48868548230 10 MG Orally Active 1 tablet as Two times a needed day Cetirizine HCl [facility] 90178450450 10 MG Orally Active 1 tablet Once a day Methocarbamol [facility] 71360273789 500 MG Orally Aria Active 1-2 tablets Twice daily , as needed 2018 for muscle cramps/pain Results No Known Results Summary Purpose eClinicalWorks Submission
--- OUTSIDE RECORDS SUMMARY | 2019-02-13 00:26 | XMS REPORT ---
:1960 [facility] Organization [facility] Address [address] [place] [address] Dr. Segura [address] [place] [id number] Care Team Providers Name Role Phone Unavailable Unavailable Unavailable Problems This patient has no known problems. Allergies, Adverse Reactions, Alerts This patient has no known allergies or adverse reactions. Medications This patient has no known medications.
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
--- NOTE | 2019-02-13 00:45 | ER ---
Nurse's Notes [facility] Name: Evelyn Rodgers Age: 58 yrs Sex: Female : 1960 Arrival Date: 02/13/2019 Time: 00:28 Bed 6 Private MD: Diagnosis: Rash and other nonspecific skin eruption Presentation: 02/13 00:43 Presenting complaint: Patient states: itchy rash to rojelio arms x 1 week. Transition of aa1 care: patient was not received from another setting of care. Onset of symptoms was February 05, 2019. Risk Assessment: Do you want to hurt yourself or someone else? Patient reports no desire to harm self or others. Initial Sepsis Screen: Does the patient meet any 2 criteria? No. Patient's initial sepsis screen is negative. Does the patient have a suspected source of infection? No. Patient's initial sepsis screen is negative. Care prior to arrival: None. 00:43 Method Of Arrival: Ambulatory aa1 00:43 Acuity: DARIUS 4 aa1 Triage Assessment: 00:46 General: Appears in no apparent distress. comfortable, Behavior is calm, cooperative, aa1 appropriate for age. Historical: - Allergies: 00:46 Ciprofloxacin; aa1 00:46 Levaquin; aa1 00:46 PENICILLINS; aa1 - Home Meds: 00:46 hydrochlorothiazide 25 mg oral tab 1 tab once daily [Active]; losartan 100 mg Oral tab aa1 1 tab once daily [Active]; - PMHx: 00:46 Fibromyalgia; GERD; Hypertension; aa1 - PSHx: 00:46 nose; Cholecystectomy; Appendectomy; breast reduction; partial hysterectomy; rectocele; aa1 foot; - Immunization history:: Flu vaccine is up to date. - Social history:: Smoking status: Patient/guardian denies using tobacco, Patient uses street drugs, marijuana. - Ebola Screening: : No symptoms or risks identified at this time. Screenin:47 Abuse screen: Denies threats or abuse. Nutritional screening: No deficits noted. bb Tuberculosis screening: No symptoms or risk factors identified. Fall Risk None identified. Assessment: 00:47 General: Appears in no apparent distress. Behavior is calm, cooperative. Pain: Denies bb pain. Neuro: Level of Consciousness is awake, alert, obeys commands, Oriented to person, place, time, situation. Cardiovascular: No deficits noted. Respiratory: Respiratory effort is even, unlabored, Respiratory pattern is regular. GI: No deficits noted. No signs and/or symptoms were reported involving the gastrointestinal system. Derm: Rash noted that is itchy, papular, to arms, back, chest. 00:47 Musculoskeletal: Circulation, motion, and sensation intact. bb 01:18 Reassessment: Patient is alert, oriented x 3, equal unlabored respirations, skin bb warm/dry/pink. pt verbalized understanding of and agrees to plan of care discharge instructions given pt ambulated with steady gait to exit. Vital Signs: 00:46 BP 155 / 117; Pulse 81; Resp 18; Temp 97.1; Pulse Ox 99% on R/A; Weight 115.21 kg; aa1 Height 5 ft. 6 in. (167.64 cm); Pain 0/10; 00:46 Body Mass Index 41.00 (115.21 kg, 167.64 cm) aa1 ED Course: 00:28 Patient arrived in ED. cf2 00:42 Sidney Nath MD is Attending Physician. pkl 00:44 Thu [facility]C [facility] kb 00:44 Triage completed. aa1 00:46 Arm band placed on right wrist. aa1 00:47 Demi Rodriguez RN is Primary Nurse. bb 00:47 Patient has correct armband on for positive identification. Bed in low position. Call bb light in reach. 00:47 No provider procedures requiring assistance completed. Patient did not have IV access bb during this emergency room visit. Administered Medications: 00:59 Drug: predniSONE 40 mg Route: PO; bb 01:16 Follow up: Response: No adverse reaction bb 00:59 Drug: Pepcid 20 mg Route: PO; bb 01:16 Follow up: Response: No adverse reaction bb Outcome: 00:45 Discharge ordered by . kb 01:19 Discharged to home ambulatory. bb 01:19 Condition: stable 01:19 Discharge instructions given to patient, Instructed on discharge instructions, follow up and referral plans. medication usage, Demonstrated understanding of instructions, follow-up care, medications, Prescriptions given X 2. 01:19 Patient left the ED. bb Signatures: Tuh Rizo FNP-C FNP-Ckb Autenrieth, Alissa, RN RN aa1 Sidney Nath MD MD pkDemi Romero, RN RN bb French Solano cf2
--- NOTE | 2019-02-13 00:45 | EDPHYS ---
Physician Documentation [facility] Name: Evelyn Rodgers Age: 58 yrs Sex: Female : 1960 Arrival Date: 02/13/2019 Time: 00:28 Bed 6 Private MD: ED Physician Sidney Nath HPI: 02/13 00:45 This 58 yrs old Black Female presents to ER via Ambulatory with complaints of Rash, kb Rash on Arms. 00:45 The patient's rash thought to be caused by an unknown cause. The rash is located on the kb right arm, left arm, right leg and left leg. The rash can be described as macular, papular. Onset: The symptoms/episode began/occurred 1 week(s) ago. Associated signs and symptoms: Pertinent positives: itching. Severity of symptoms: At their worst the symptoms were moderate in the emergency department the symptoms are unchanged. The patient has not experienced similar symptoms in the past. The patient has not recently seen a physician. Pt reports rash that is getting worse and "itches like crazy". Historical: - Allergies: 00:46 Ciprofloxacin; aa1 00:46 Levaquin; aa1 00:46 PENICILLINS; aa1 - Home Meds: 00:46 hydrochlorothiazide 25 mg oral tab 1 tab once daily [Active]; losartan 100 mg Oral tab aa1 1 tab once daily [Active]; - PMHx: 00:46 Fibromyalgia; GERD; Hypertension; aa1 - PSHx: 00:46 nose; Cholecystectomy; Appendectomy; breast reduction; partial hysterectomy; rectocele; aa1 foot; - Immunization history:: Flu vaccine is up to date. - Social history:: Smoking status: Patient/guardian denies using tobacco, Patient uses street drugs, marijuana. - Ebola Screening: : No symptoms or risks identified at this time. ROS: 00:45 Constitutional: Negative for fever, chills, and weight loss, Cardiovascular: Negative kb for chest pain, palpitations, and edema, Respiratory: Negative for shortness of breath, cough, wheezing, and pleuritic chest pain, Abdomen/GI: Negative for abdominal pain, nausea, vomiting, diarrhea, and constipation, Back: Negative for injury and pain, MS/Extremity: Negative for injury and deformity, Neuro: Negative for headache, weakness, numbness, tingling, and seizure. 00:45 Skin: Positive for rash. Exam: 00:45 Constitutional: This is a well developed, well nourished patient who is awake, alert, kb and in no acute distress. Head/Face: Normocephalic, atraumatic. Chest/axilla: Normal chest wall appearance and motion. Nontender with no deformity. No lesions are appreciated. Cardiovascular: Regular rate and rhythm with a normal S1 and S2. No gallops, murmurs, or rubs. Normal PMI, no JVD. No pulse deficits. Respiratory: Lungs have equal breath sounds bilaterally, clear to auscultation and percussion. No rales, rhonchi or wheezes noted. No increased work of breathing, no retractions or nasal flaring. Abdomen/GI: Soft, non-tender, with normal bowel sounds. No distension or tympany. No guarding or rebound. No evidence of tenderness throughout. MS/ Extremity: Pulses equal, no cyanosis. Neurovascular intact. Full, normal range of motion. Neuro: Awake and alert, GCS 15, oriented to person, place, time, and situation. Cranial nerves II-XII grossly intact. Motor strength 5/5 in all extremities. Sensory grossly intact. Cerebellar exam normal. Normal gait. 00:45 Skin: consistent with contact dermatitis, on the right arm, left arm, right leg and left leg. Vital Signs: 00:46 BP 155 / 117; Pulse 81; Resp 18; Temp 97.1; Pulse Ox 99% on R/A; Weight 115.21 kg; aa1 Height 5 ft. 6 in. (167.64 cm); Pain 0/10; 00:46 Body Mass Index 41.00 (115.21 kg, 167.64 cm) aa1 MDM: 00:42 Patient medically screened. pkl 00:46 Data reviewed: vital signs, nurses notes. Data interpreted: Pulse oximetry: on room air kb is 99 %. Interpretation: normal. Counseling: I had a detailed discussion with the patient and/or guardian regarding: the historical points, exam findings, and any diagnostic results supporting the discharge/admit diagnosis, the need for outpatient follow up, a family practitioner, to return to the emergency department if symptoms worsen or persist or if there are any questions or concerns that arise at home. Administered Medications: 00:59 Drug: predniSONE 40 mg Route: PO; bb 01:16 Follow up: Response: No adverse reaction bb 00:59 Drug: Pepcid 20 mg Route: PO; bb 01:16 Follow up: Response: No adverse reaction bb Disposition: 01:28 Co-signature as Attending Physician, Sidney Nath MD. [email or web address] Disposition: 02/13/19 00:45 Discharged to Home. Impression: Rash and other nonspecific skin eruption. - Condition is Stable. - Discharge Instructions: Insect Bite, Myxt-zl-Rthu, Rash, Utbh-re-Gwbw, Allergies, Zjrb-pj-Ayhb. - Prescriptions for Pepcid 20 mg Oral Tablet - take 1 tablet by ORAL route every 12 hours for 5 days; 10 tablet. Prednisone 20 mg Oral Tablet - take 1 tablet by ORAL route once daily for 5 days; 5 tablet. - Medication Reconciliation Form, Thank You Letter, Antibiotic Education, Prescription Opioid Use form. - Follow up: Emergency Department; When: As needed; Reason: Worsening of condition. Follow up: Private Physician; When: 2 - 3 days; Reason: Recheck today's complaints, Continuance of care, Re-evaluation by your physician. Signatures: Thu Rizo, TIFFANI-C SECURITIES COMPLIANCE EXAMINER-Hortensia Castillo RN RN aa1 Sidney Nath MD MD pkDemi Romero RN RN bb Corrections: (The following items were deleted from the chart) : 00:45 02/13/2019 00:45 Discharged to Home. Impression: Rash and other nonspecific skin bb eruption. Condition is Stable. Forms are Medication Reconciliation Form, Thank You Letter, Antibiotic Education, Prescription Opioid Use. Follow up: Emergency Department; When: As needed; Reason: Worsening of condition. Follow up: Private Physician; When: 2 - 3 days; Reason: Recheck today's complaints, Continuance of care, Re-evaluation by your physician. kb
[2019-02-13] MEDS ORDERED: FAMOTIDINE 20 MG TAB ONE (00:53)
[2019-02-13] MEDS ORDERED: predniSONE 20 MG TAB ONE (00:53)
[2019-02-13 03:00] VITALS: BP 155/117; TEMP 97.1; O2SAT 99
== END 2019-02-13 01:19 | disposition home or self-care (01) ==
LOC: ER 00:23
DX: R21 Rash and other nonspecific skin eruption (principal); I10 Essential (primary) hypertension; K21.9 Gastro-esophageal reflux disease without esophagitis; Z88.0 Allergy status to penicillin; Z88.1 Allergy status to other antibiotic agents
CPT/HCPCS: 99283; J7512

== ENCOUNTER 2019-10-13 15:52 | Emergency (ER) | payer BC ==
--- OUTSIDE RECORDS SUMMARY | 2019-10-13 15:54 | XMS REPORT | Continuity of Care Document ---
:1960 Author Organization [facility] t Address [address] [place] [address] Care Team Providers Name Role Phone Doctor Unassigned, Name Attending Clinician Unavailable Leona Ramesh Attending Clinician Francisca PATEL S Attending Clinician Problems Condition Condition Condition Status Onset Resolution Last Treating Co mments Source Name Details Category Date Date Treatment Clinician Date Fatty Fatty Problem Active [facility] Gastroesop Gastroesop Diagnosis Active [facility] hageal hageal [facility] reflux reflux [facility] disease, disease, l esophagiti esophagiti Ou tpati s presence s presence en t not not Clinics specified specified Hypertensi Hypertensi Diagnosis Active [facility], on, [facility] - unspecifie unspecifie Me moria d type d type l [facility] Fibromyalg Fibromyalg Problem Active [facility] Chronic Chronic Diagnosis [facility] syndrome syndrome [facility] Dermatitis Dermatitis Problem Active [facility] Depression Depression Diagnosis Active [facility] with with [facility] anxiety anxiety [facility] Obstructiv Obstructiv Problem Active [facility] sleep e sleep [facility] apnea apnea [facility] Menopause Menopause Problem Active [facility] Subcutaneo Subcutaneo Diagnosis Active [facility] mass us mass [facility] Allergies, Adverse Reactions, Alerts This patient has no known allergies or adverse reactions. Medications Ordered Filled Start Stop Current Ordering Indication Dosage Frequency Signature Comments Components Source Medication Medication Date Date Medication? Clinician (SIG) Name Name Cory Ray Yes Anisa [address] [facility] Cozaar Cozaar Yes Anisa [address] [facility] Melatonin Melatonin Yes Anisa [address] [facility] Millender at bedtime [facility] - as needed [facility] with food l Outpati ent Clinics Duloxetine Duloxetine Yes Anisa [address] [facility] HCl HCl [facility] Triamcinolo Triamcinolo Yes Anisa [address] [facility] ne & ne & Millender applicatio [facility] - Emollient Emollient n [facility] Cetirizine Cetirizine Yes Anisa [address] [facility] HCl HCl [facility] Ondansetron Ondansetron Yes Anisa not [facility] HCl HCl [facility] defined [facility] Nystatin Nystatin Yes Anisa [address] [facility] Betamethaso Betamethaso Yes Anisa [address] [facility] ne ne Millender applicatio [facility] - Dipropionat Dipropionat n to M emoria e e affected l area Outpati ent Clinics Medrol Medrol Yes Anisa [address] [facility] with food [facility] - or milk in Memoria the l morning Outpati ent Clinics Ultram Ultram Yes Anisa [address] [facility] as needed [facility] Omeprazole Omeprazole Yes Anisa [address] [facility] Savella Savella Yes Anisa [address] [facility] Estrace Estrace Yes Anisa not [facility] defined [facility] Lortab 5 Lortab 5 Yes Anisa not [facility] defined [facility] Cyclobenzap Cyclobenzap Yes Anisa [address] [facility] rine HCl rine HCl Millender as needed [facility] Trazodone Trazodone Yes Anisa [address] [facility] HCl HCl Millender at bedtime Luke s - as needed [facility] for sleep l Outpati ent Clinics Hydrochloro Hydrochloro Yes Anisa [address] [address] thiazide thiazide Mill[facility] in the [facility] - morning [facility] l [facility] ent Clinics Methocarbam Methocarbam 2019- No Anisa 1-[address] [facility] [address] ol ol 04-02 Millender tablets as Obdulia es - 00:00 needed for Memoria :00 muscle l cramps/emanuel Outpati n ent Clinics Tramadol Tramadol 2019- No Anisa [address] HCl HCl -02 Millender as needed Luke s - 00:00 for pain Memoria :00 l Outpati ent Clinics Procedures This patient has no known procedures. Encounters Start End Encounter Admission Attending Care Care Encounter Source Date/Time Date/Time Type Type Clinicians Facility Department ID 2018-10-26 2018-10-26 Orders Doctor WILMER [id number] 00:00:00 00:00:00 Only Unassigned, [place] [id number] [place] [id number] 2018-09-11 2018-09-11 Emergency William Bowles [facility] [id number] 14:55:53 19:05:00 Leona Ayers [id number] [place] [id number] [place] [id number] 2018-09-09 2018-09-09 Emergency Yarimt, [facility] [id number] 11:55:08 19:45:00 Lennox Ayers [id number] [place] [id number] [place] [id number] 2017-11-17 2017-11-17 [facility] [id number] [facility] 14:15:00 14:15:00 [facility] 2017-05-12 2017-05-12 [facility] [id number] 10:30:00 10:30:00 [facility] Medicine l Medicine Outpati ent Clinics Results This patient has no known results.
--- NOTE | 2019-10-13 19:28 | ER ---
Nurse's Notes [facility] Name: Evelyn Rodgers Age: 59 yrs Sex: Female : 1960 Arrival Date: 10/13/2019 Time: 15:56 Bed 24 Private MD: Diagnosis: Pain in left shoulder Presentation: 10/12 16:07 Chief complaint: Patient states: R shoulder pain that began 2 days ago. No known ss injury. Pt reports she had a CT scan the other day and had to hold her arms over her head which may have lead to this injury. Coronavirus screen: Client denies travel out of the [place] in the last 14 days. At this time, the client does not indicate any symptoms associated with coronavirus-19. Ebola Screen: Patient denies exposure to infectious person. Patient denies travel to an Ebola-affected area in the 21 days before illness onset. Initial Sepsis Screen: Does the patient meet any 2 criteria? No. Patient's initial sepsis screen is negative. Does the patient have a suspected source of infection? No. Patient's initial sepsis screen is negative. Risk Assessment: Do you want to hurt yourself or someone else? Patient reports no desire to harm self or others. Onset of symptoms was October 11, 2019. 16:07 Method Of Arrival: Ambulatory ss 16:07 Acuity: DARIUS 4 ss Historical: - Allergies: 16:09 Ciprofloxacin; ss 16:09 Levaquin; ss 16:09 PENICILLINS; ss - PMHx: 16:09 Fibromyalgia; GERD; Hypertension; ss - PSHx: 16:09 nose; Cholecystectomy; Appendectomy; partial hysterectomy; breast reduction; rectocele; ss foot; - Immunization history:: Adult Immunizations up to date. - Social history:: Smoking status: Patient denies any tobacco usage or history of. Screenin:07 Abuse screen: Denies threats or abuse. Denies injuries from another. Nutritional ss screening: No deficits noted. Tuberculosis screening: Never had TB. Fall Risk None identified. Assessment: 16:07 General: Appears in no apparent distress. comfortable, Behavior is calm, cooperative, ss Denies fever, feeling ill, fatigue, chills. Pain: Complains of pain in left shoulder and left arm and anterior aspect of left shoulder Pain currently is 8 out of 10 on a pain scale. Quality of pain is described as aching, tender, Pain began 2-3 days ago. Is continuous. Neuro: Level of Consciousness is awake, alert, obeys commands, Oriented to person, place, time, situation. Cardiovascular: Capillary refill < 3 seconds is brisk in bilateral fingers Patient's skin is warm and dry. Respiratory: Airway is patent Respiratory effort is even, unlabored, Respiratory pattern is regular, symmetrical. GI: Patient currently denies diarrhea, nausea, vomiting. : Denies burning with urination. EENT: Nares are clear Oral mucosa is moist. Derm: Skin is intact, is healthy with good turgor, Skin is dry, Skin is pink, warm \T\ dry. normal. Musculoskeletal: Circulation, motion, and sensation intact. Range of motion: intact in all extremities, Swelling absent. 19:16 Reassessment: Patient appears in no apparent distress at this time. Patient is alert, ss oriented x 3, equal unlabored respirations, skin warm/dry/pink. awaiting XRAY results. Vital Signs: 16:07 BP 126 / 79; Pulse 92; Resp 16; Temp 97.7(TE); Pulse Ox 99% on R/A; Weight 105.23 kg; ss Height 5 ft. 6 in. (167.64 cm); Pain 8/10; 16:07 Body Mass Index 37.45 (105.23 kg, 167.64 cm) ss ED Course: 15:56 Patient arrived in ED. mr 16:07 Patient has correct armband on for positive identification. Bed in low position. Call ss light in reach. 16:08 Triage completed. ss 16:09 Arm band placed on right wrist. ss 16:33 Thu Rizo FNP-C is PHCP. kb 16:33 Goldie Torres MD is Attending Physician. kb 18:26 Shoulder Left 2 View In Process Unspecified. EDMS 18:58 Mely Hawk, RANDY is Primary Nurse. ss 19:15 No provider procedures requiring assistance completed. Patient did not have IV access ss during this emergency room visit. 19:38 Sling applied to left arm. ss Administered Medications: 19:37 Drug: Williamson (7.5 mg-325 mg) 1 tabs Route: PO; ss 19:37 Follow up: Response: No adverse reaction; Medication administered at discharge. ss Outcome: 19:28 Discharge ordered by . radha 19:38 Discharged to home ambulatory. ss 19:38 Discharge instructions given to patient, Instructed on discharge instructions, follow up and referral plans. medication usage, Demonstrated understanding of instructions, follow-up care, medications. 19:38 Patient left the ED. ss Signatures: Dispatcher [employer] EDMS Thu Rizo, MARVEL NIXON-Lisy Hirsch Shelby, RN RN ss
--- NOTE | 2019-10-13 19:28 | EDPHYS ---
Physician Documentation [facility] Name: Evelyn Rodgers Age: 59 yrs Sex: Female : 1960 Arrival Date: 10/13/2019 Time: 15:56 Bed 24 Private MD: ED Physician Goldie Torres HPI: 10/12 18:41 This 59 yrs old Black Female presents to ER via Ambulatory with complaints of Shoulder kb Pain. 18:41 The patient or guardian complains of decreased range of motion, pain, tenderness. left kb shoulder. Context: The problem was sustained at a CT scan, resulted from having arm raised over head during CT scan, The patient experiences decreased range of motion, when attempts to raise arm, The patient reports no obvious deformity. Onset: The symptoms/episode began/occurred 6 day(s) ago. Modifying factors: the symptoms are alleviated by nothing. The symptoms are aggravated by nothing. Associated signs and symptoms: The patient has no apparent associated signs or symptoms. Severity of symptoms: At their worst the symptoms were moderate, in the emergency department the symptoms are unchanged. Treatment prior to arrival includes: no previous treatment. The patient has not experienced similar symptoms in the past. The patient has not recently seen a physician. Historical: - Allergies: 16:09 Ciprofloxacin; ss 16:09 Levaquin; ss 16:09 PENICILLINS; ss - PMHx: 16:09 Fibromyalgia; GERD; Hypertension; ss - PSHx: 16:09 nose; Cholecystectomy; Appendectomy; partial hysterectomy; breast reduction; rectocele; ss foot; - Immunization history:: Adult Immunizations up to date. - Social history:: Smoking status: Patient denies any tobacco usage or history of. ROS: 18:41 Constitutional: Negative for fever, chills, and weight loss, Cardiovascular: Negative kb for chest pain, palpitations, and edema, Respiratory: Negative for shortness of breath, cough, wheezing, and pleuritic chest pain, Abdomen/GI: Negative for abdominal pain, nausea, vomiting, diarrhea, and constipation, Back: Negative for injury and pain, Skin: Negative for injury, rash, and discoloration, Neuro: Negative for headache, weakness, numbness, tingling, and seizure. 18:41 MS/extremity: Positive for decreased range of motion, pain, tenderness, of the anterior aspect of left shoulder. Exam: 18:40 Constitutional: This is a well developed, well nourished patient who is awake, alert, kb and in no acute distress. Head/Face: Normocephalic, atraumatic. Chest/axilla: Normal chest wall appearance and motion. Nontender with no deformity. No lesions are appreciated. Cardiovascular: Regular rate and rhythm with a normal S1 and S2. No gallops, murmurs, or rubs. Normal PMI, no JVD. No pulse deficits. Respiratory: Lungs have equal breath sounds bilaterally, clear to auscultation and percussion. No rales, rhonchi or wheezes noted. No increased work of breathing, no retractions or nasal flaring. Abdomen/GI: Soft, non-tender, with normal bowel sounds. No distension or tympany. No guarding or rebound. No evidence of tenderness throughout. Back: No spinal tenderness. No costovertebral tenderness. Full range of motion. Skin: Warm, dry with normal turgor. Normal color with no rashes, no lesions, and no evidence of cellulitis. Neuro: Awake and alert, GCS 15, oriented to person, place, time, and situation. Cranial nerves II-XII grossly intact. Motor strength 5/5 in all extremities. Sensory grossly intact. Cerebellar exam normal. Normal gait. 18:40 Musculoskeletal/extremity: Extremities: grossly normal except: noted in the anterior aspect of left shoulder: decreased ROM, pain, tenderness, ROM: limited active range of motion due to pain, in the anterior aspect of left shoulder, Circulation is intact in all extremities. Sensation intact. Vital Signs: 16:07 BP 126 / 79; Pulse 92; Resp 16; Temp 97.7(TE); Pulse Ox 99% on R/A; Weight 105.23 kg; ss Height 5 ft. 6 in. (167.64 cm); Pain 8/10; 16:07 Body Mass Index 37.45 (105.23 kg, 167.64 cm) ss MDM: 17:36 Patient medically screened. kb 18:38 Data reviewed: vital signs, nurses notes. Data interpreted: Pulse oximetry: on room air kb is 99 %. Interpretation: normal. 19:27 Counseling: I had a detailed discussion with the patient and/or guardian regarding: the kb historical points, exam findings, and any diagnostic results supporting the discharge/admit diagnosis, radiology results, the need for outpatient follow up, a family practitioner, to return to the emergency department if symptoms worsen or persist or if there are any questions or concerns that arise at home. 10/12 18:06 Order name: Shoulder Left 2 View EDMI 10/12 19:28 Order name: Elkin; Complete Time: 19:37 kb Administered Medications: 19:37 Drug: [place] (7.5 mg-325 mg) 1 tabs Route: PO; ss 19:37 Follow up: Response: No adverse reaction; Medication administered at discharge. ss Disposition: 10/13/19 19:28 Discharged to Home. Impression: Pain in left shoulder. - Condition is Stable. - Discharge Instructions: Musculoskeletal Pain, Shoulder Pain, [id number]. - Prescriptions for Ibuprofen 800 mg Oral Tablet - take 1 tablet by ORAL route every 8 hours As needed take with food; 30 tablet. - Medication Reconciliation Form, Thank You Letter, Antibiotic Education, Prescription Opioid Use form. - Follow up: Emergency Department; When: As needed; Reason: Worsening of condition. Follow up: Private Physician; When: 2 - 3 days; Reason: Recheck today's complaints, Continuance of care, Re-evaluation by your physician. Signatures: Dispatcher [employer] [facility] Thu Rizo, TIFFANI-C DOOR FRAMER-Mely Hawkins RN RN ss Corrections: (The following items were deleted from the chart) 18:06 16:10 Shoulder Right 2 View+RAD.RAD.BRZ ordered. [facility] 19:38 19:28 10/13/2019 19:28 Discharged to Home. Impression: Pain in left shoulder. Condition ss is Stable. Forms are Medication Reconciliation Form, Thank You Letter, Antibiotic Education, Prescription Opioid Use. Follow up: Emergency Department; When: As needed; Reason: Worsening of condition. Follow up: Private Physician; When: 2 - 3 days; Reason: Recheck today's complaints, Continuance of care, Re-evaluation by your physician. kb
[2019-10-13] MEDS ORDERED: HYDROCODONE/APAP 7.5/325 MG TAB ONE (19:44)
--- NOTE | 2019-10-13 20:09 | RAD REPORT ---
EXAM DESCRIPTION: RAD - Shoulder Left 2 View - 10/13/2019 6:26 pm CLINICAL HISTORY: PAIN, limited range of motion COMPARISON: Thorax W/ Con dated 10/09/2019 TECHNIQUE: Internal and external rotation views of the left shoulder were obtained. FINDINGS: There is no fracture or dislocation. Minimal AC joint degenerative change present. Early d egenerative change seen at the greater tuberosity. Acromial humeral joint space is normal. A linear r adiopaque density is superimposed on the mid shaft of the left clavicle. This does not appear to be a bony structure and may be an artifact on clothing or skin. No history of foreign body or penetrating injury. IMPRESSION: Mild degenerative change to the left shoulder. No acute findings seen. Radiopaque density superimposed on the clavicle is probably external skin or clothing artifact.
== END 2019-10-13 19:38 | disposition home or self-care (01) ==
LOC: ER 15:52
DX: M25.512 Pain in left shoulder (principal); I10 Essential (primary) hypertension; M79.7 Fibromyalgia; Z88.0 Allergy status to penicillin; Z88.1 Allergy status to other antibiotic agents
CPT/HCPCS: 99283

== ENCOUNTER 2019-11-01 14:17 | Emergency (ER) | payer BC ==
--- OUTSIDE RECORDS SUMMARY | 2019-11-01 14:27 | XMS REPORT | Continuity of Care Document ---
:1960 Author Organization [facility] t Address [address] [place] [address] Care Team Providers Name Role Phone Doctor Unassigned, Name Attending Clinician Unavailable Leona Ramesh Attending Clinician Francisca PATEL S Attending Clinician Problems Condition Condition Condition Status Onset Resolution Last Treating Co mments Source Name Details Category Date Date Treatment Clinician Date Fatty Fatty Problem Active [facility] Gastroesop Gastroesop Diagnosis Active [facility] hageal hageal [facility] reflux reflux [facility]oria disease, disease, l esophagiti esophagiti Ou tpati s presence s presence en t not not Clinics specified specified Hypertensi Hypertensi Diagnosis Active [facility] on, on, [facility] - unspecifie unspecifie Me moria d type d type l [facility] Fibromyalg Fibromyalg Problem Active [facility] ia ia [facility] Chronic Chronic Diagnosis Active [facility] pain pain [facility] syndrome syndrome [facility] Dermatitis Dermatitis Problem Active [facility] Depression Depression Diagnosis Active [facility] with [facility] anxiety anxiety [facility] Obstructiv Obstructiv Problem Active [facility] sleep e sleep [facility] apnea apnea [facility] Menopause Menopause Problem Active [facility] Subcutaneo Subcutaneo Diagnosis Active [facility] us mass [facility] Allergies, Adverse Reactions, Alerts This patient has no known allergies or adverse reactions. Medications Ordered Filled Start Stop Current Ordering Indication Dosage Frequency Signature Comments Components Source Medication Medication Date Date Medication? Clinician (SIG) Name Name Cory Ray Yes Anisa [address] [facility] Cozaar Cozaar Yes Anisa [address] [facility] Melatonin Melatonin Yes Anisa [...] - Emollient Emollient n [facility] Cetirizine Cetirizine Yes Anisa [...] ID 2018-10-26 2018-10-26 Orders Doctor WILMER [id number] 00:00:00 00:00:00 Only Unassigned, AGUSTO [id number] [place] [id number] 2018-09-11 2018-09-11 Emergency William Bowles [facility] [id number] 14:55:53 19:05:00 Leona Ayers [id number] [place] [id number] [place] [id number] 2018-09-09 2018-09-09 Emergency Y[place], [facility] [id number] 11:55:08 19:45:00 Lennox Ayers [id number] [place] [id number] [place] [id number] 2017-11-17 2017-11-17 [facility] [id number] [facility] 14:15:00 14:15:00 [facility] 2017-05-12 2017-05-12 [facility] [id number] 10:30:00 10:30:00 [facility] Medicine l Medicine Outpati ent Clinics Results This patient has no known results.
--- NOTE | 2019-11-01 16:25 | ER ---
Nurse's Notes [facility] Name: Evelyn Rodgers Age: 59 yrs Sex: Female : 1960 Arrival Date: 11/01/2019 Time: 14:26 Bed 18 Private MD: Diagnosis: Pain in left leg Presentation: 10/31 14:54 Chief complaint: Patient states: left leg up to knee swelling that started on Tuesday, em denies any trauma. Coronavirus screen: Client denies travel out of the [place] in the last 14 days. Ebola Screen: Patient negative for fever greater than or equal to 101.5 degrees Fahrenheit, and additional compatible Ebola Virus Disease symptoms Patient denies exposure to infectious person. Patient denies travel to an Ebola-affected area in the 21 days before illness onset. No symptoms or risks identified at this time. Initial Sepsis Screen: Does the patient meet any 2 criteria? No. Patient's initial sepsis screen is negative. Does the patient have a suspected source of infection? No. Patient's initial sepsis screen is negative. Risk Assessment: Do you want to hurt yourself or someone else? Patient reports no desire to harm self or others. Onset of symptoms was October 26, 2019. 14:54 Method Of Arrival: Ambulatory em 14:54 Acuity: DARIUS 3 em Triage Assessment: 15:54 General: Appears in no apparent distress. comfortable. ls4 15:54 General: Behavior is fussy, restless. Pain: Complains of pain in left leg. Neuro: No ls4 deficits noted. Cardiovascular: No deficits noted. Respiratory: No deficits noted. Historical: - Allergies: 14:57 Ciprofloxacin; em 14:57 PENICILLINS; em 14:57 Levaquin; em - PMHx: 14:57 Fibromyalgia; GERD; Hypertension; em - PSHx: 14:57 breast reduction; partial hysterectomy; Appendectomy; nose; Cholecystectomy; foot; em - Immunization history:: Adult Immunizations up to date. - Social history:: Smoking status: Patient denies any tobacco usage or history of. Patient uses street drugs, marijuana. Screenin:05 Abuse screen: Denies threats or abuse. Denies injuries from another. Nutritional ls4 screening: No deficits noted. Tuberculosis screening: No symptoms or risk factors identified. Fall Risk None identified. Assessment: 17:04 Respiratory:. Musculoskeletal: Circulation, motion, and sensation intact. Capillary ls4 refill < 3 seconds, Range of motion: intact in all extremities, Swelling present in left knee. Vital Signs: 14:54 BP 108 / 81; Pulse 86; Resp 18; Temp 98.4(O); Pulse Ox 99% on R/A; Weight 106.59 kg em (R); Height 5 ft. 6 in. (167.64 cm); Pain 9/10; 14:54 Body Mass Index 37.93 (106.59 kg, 167.64 cm) em ED Course: 14:26 Patient arrived in ED. mr 14:56 Triage completed. em 14:57 Arm band placed on. em 14:59 Megan Ba FNP-C is PHCP. snw 15:55 US Extremity Venous Unilateral Ltd In Process Unspecified. EDMS 15:56 Megan Ba FNP-C is PHCP. snw 15:56 Jarad Willett MD is Attending Physician. snw 16:13 Veronica Mercado, RN is Primary Nurse. ls4 Administered Medications: No medications were administered Outcome: 16:25 Discharge ordered by . snw 17:33 Patient left the ED. ls4 Signatures: Dispatcher [employer] EDME Megan Ba FNP-C AIRPLANE TUBE BUILDER-Jonah PanchalaLisy Kavin Staton, RN RN em Veronica Mercado, RN RN ls4
--- NOTE | 2019-11-01 16:26 | EDPHYS ---
Physician Documentation [facility] Name: Evelyn Rodgers Age: 59 yrs Sex: Female : 1960 Arrival Date: 11/01/2019 Time: 14:26 Bed 18 Private MD: ED Physician Jarad Willett HPI: 10/31 18:11 This 59 yrs old Black Female presents to ER via Ambulatory with complaints of left leg snw Swelling/pain. 18:11 Onset: The symptoms/episode began/occurred acutely. Associated signs and symptoms: snw Pertinent positives: tenderness and edema. Modifying factors: The patient symptoms are alleviated by nothing. The patient has not experienced similar symptoms in the past. The patient has not recently seen a physician. Pt with DM, HTN, hyperlipidemia, drove 12 hours to and from [place] this week and left leg began to swell. Pt has elevated it, stayed off of it, swelling and tenderness remain. US negative for DVT but will treat and request repeat US per PCP next week. Historical: - Allergies: 14:57 Ciprofloxacin; em 14:57 PENICILLINS; em 14:57 Levaquin; em - PMHx: 14:57 Fibromyalgia; GERD; Hypertension; em - PSHx: 14:57 breast reduction; partial hysterectomy; Appendectomy; nose; Cholecystectomy; foot; em - Immunization history:: Adult Immunizations up to date. - Social history:: Smoking status: Patient denies any tobacco usage or history of. Patient uses street drugs, marijuana. ROS: 18:04 Constitutional: Negative for fever, chills, and weight loss, Eyes: Negative for injury, snw pain, redness, and discharge, ENT: Negative for injury, pain, and discharge, Neck: Negative for injury, pain, and swelling, Cardiovascular: Negative for chest pain, palpitations, and edema, Respiratory: Negative for shortness of breath, cough, wheezing, and pleuritic chest pain, Abdomen/GI: Negative for abdominal pain, nausea, vomiting, diarrhea, and constipation, Back: Negative for injury and pain, : Negative for injury, bleeding, discharge, and swelling, Skin: Negative for injury, rash, and discoloration, Neuro: Negative for headache, weakness, numbness, tingling, and seizure. 18:04 MS/extremity: Positive for pain, swelling, of the left leg. Exam: 18:04 Constitutional: This is a well developed, well nourished patient who is awake, alert, snw and in no acute distress. Head/Face: Normocephalic, atraumatic. Eyes: Pupils equal round and reactive to light, extra-ocular motions intact. Lids and lashes normal. Conjunctiva and sclera are non-icteric and not injected. Cornea within normal limits. Periorbital areas with no swelling, redness, or edema. ENT: Nares patent. No nasal discharge, no septal abnormalities noted. Tympanic membranes are normal and external auditory canals are clear. Oropharynx with no redness, swelling, or masses, exudates, or evidence of obstruction, uvula midline. Mucous membranes moist. Neck: Trachea midline, no thyromegaly or masses palpated, and no cervical lymphadenopathy. Supple, full range of motion without nuchal rigidity, or vertebral point tenderness. No Meningismus. Chest/axilla: Normal chest wall appearance and motion. Nontender with no deformity. No lesions are appreciated. Cardiovascular: Regular rate and rhythm with a normal S1 and S2. No gallops, murmurs, or rubs. Normal PMI, no JVD. No pulse deficits. Respiratory: Lungs have equal breath sounds bilaterally, clear to auscultation and percussion. No rales, rhonchi or wheezes noted. No increased work of breathing, no retractions or nasal flaring. Abdomen/GI: Soft, non-tender, with normal bowel sounds. No distension or tympany. No guarding or rebound. No evidence of tenderness throughout. Back: No spinal tenderness. No costovertebral tenderness. Full range of motion. Skin: Warm, dry with normal turgor. Normal color with no rashes, no lesions, and no evidence of cellulitis. Neuro: Awake and alert, GCS 15, oriented to person, place, time, and situation. Cranial nerves II-XII grossly intact. Motor strength 5/5 in all extremities. Sensory grossly intact. Cerebellar exam normal. Normal gait. Psych: Awake, alert, with orientation to person, place and time. Behavior, mood, and affect are within normal limits. 18:04 Musculoskeletal/extremity: Extremities: grossly normal except: noted in the left leg: pain, swelling. Vital Signs: 14:54 BP 108 / 81; Pulse 86; Resp 18; Temp 98.4(O); Pulse Ox 99% on R/A; Weight 106.59 kg em (R); Height 5 ft. 6 in. (167.64 cm); Pain 9/10; 14:54 Body Mass Index 37.93 (106.59 kg, 167.64 cm) em MDM: 15:56 Patient medically screened. snw 18:03 Data reviewed: vital signs, nurses notes. Data interpreted: Pulse oximetry: on room air snw is 99 %. Interpretation: normal. Counseling: I had a detailed discussion with the patient and/or guardian regarding: the historical points, exam findings, and any diagnostic results supporting the discharge/admit diagnosis, the presence of at least one elevated blood pressure reading (>120/80) during this emergency department visit, radiology results, the need for outpatient follow up, to return to the emergency department if symptoms worsen or persist or if there are any questions or concerns that arise at home. Response to treatment: There is no appreciated change of the patient's symptoms at this time. Special discussion: Based on the history and exam findings, there is no indication for further emergent testing or inpatient evaluation. I discussed with the patient/guardian the need to see the primary care provider for further evaluation of the symptoms. 10/31 15:00 Order name: US Extremity Venous Unilateral Ltd; Complete Time: 16:38 snw Administered Medications: No medications were administered Disposition: 11/01 14:04 Co-signature as Attending Physician, Jarad Willett MD I agree with the assessment and kdr plan of care. Disposition: 11/01/19 16:25 Discharged to Home. Impression: Pain in left leg. - Condition is Stable. - Discharge Instructions: Deep Vein Thrombosis, Heat Therapy. - Prescriptions for Xarelto 10 mg Oral Tablet - take 1 tablet by ORAL route once daily; 30 tablet. - Work release form, Medication Reconciliation Form, Thank You Letter, Antibiotic Education, Prescription Opioid Use form. - Follow up: Private Physician; When: 2 - 3 days; Reason: Recheck today's complaints, Continuance of care, Re-evaluation by your physician. Follow up: Emergency Department; When: As needed; Reason: Trouble breathing, Worsening of condition. Signatures: Dispatcher [employer] EDAZ Jarad Willett MD MD kdr Waters, Shelly, MACHINE QUILT STUFFER-C MACHINE QUILT STUFFER-Csnw Kavin Staton, RN RN Veronica Sebastian RN RN ls4 Corrections: (The following items were deleted from the chart) 10/31 17:33 16:25 11/01/2019 16:25 Discharged to Home. Impression: Pain in left leg. Condition is ls4 Stable. Forms are Medication Reconciliation Form, Thank You Letter, Antibiotic Education, Prescription Opioid Use. Follow up: Private Physician; When: 2 - 3 days; Reason: Recheck today's complaints, Continuance of care, Re-evaluation by your physician. Follow up: Emergency Department; When: As needed; Reason: Trouble breathing, Worsening of condition. snw
--- NOTE | 2019-11-01 16:33 | RAD REPORT ---
EXAM DESCRIPTION: US - Extremity Venous Uni Ltd - 11/01/2019 3:55 pm CLINICAL HISTORY: SWELLINGleft leg pain COMPARISON: None. TECHNIQUE: Real-time sonographic evaluation of the left lower extremity deep venous system was perfo rmed. FINDINGS: Normal compressibility, flow augmentation, phasic flow and spontaneous flow are identified in the left lower extremity common femoral, superficial femoral, popliteal and posterior tibial vein s. No intraluminal filling defects seen. IMPRESSION: No DVT in the left lower extremity.
[2019-11-01] MEDS ORDERED: RIVAROXABAN 15 MG TABLET PO ONE (17:15)
[2019-11-01] MEDS ORDERED: HYDROCODONE/APAP 5/325 MG TAB ONE (17:42)
[2019-11-01 19:49] VITALS: BP 108/81; TEMP 98.4; O2SAT 99
== END 2019-11-01 17:33 | disposition home or self-care (01) ==
LOC: ER 14:17
DX: M79.662 Pain in left lower leg (principal); M79.7 Fibromyalgia; I10 Essential (primary) hypertension; Z88.0 Allergy status to penicillin; Z88.1 Allergy status to other antibiotic agents
CPT/HCPCS: 93971; 99282

== ENCOUNTER 2020-10-28 21:08 | Emergency (ER) | payer BC ==
[2020-10-28 22:30] LABS: Arterial Blood Carboxyhemoglob 1.8 % (0-1.5); Blood Gas Oxyhemoglobin 76.8 % (94-97); Blood O2 Saturation 79.1 % (92-98.5)
[2020-10-28] MEDS ORDERED: NA CHLORIDE 0.9% 1,000 ML ONE (22:43)
[2020-10-28] MEDS ORDERED: ACETAMINOPHEN 500 MG TAB ONE (22:43)
[2020-10-28] MEDS ORDERED: ONDANSETRON 4 MG/2 ML VIAL ONE (22:43)
[2020-10-28 23:13] LABS: Absolute Lymphocytes (CBC) 3.2 K/uL (0.7-4.9); Basophils % 0.5 % (0-1.3); Lymphocytes % 40.6 % (15.3-44.8); MPV 8.4 fL (7.6-11.3); RBC Red Blood Cell Count 3.85 M/uL (3.86-4.86)
[2020-10-28 23:31] LABS: ALT/SGPT 21 U/L (12-78); AST/SGOT 18 U/L (15-37); Albumin 4.3 g/dL (3.4-5.0); Alkaline Phosphatase 114 U/L (45-117); BUN Blood Urea Nitrogen 20 mg/dL (7-18); Bicarbonate 27 mmol/L (21-32); Bilirubin Direct 0.1 mg/dL (0-0.2); Bilirubin Total 0.2 mg/dL (0.2-1.0); Glucose Level 89 mg/dL (74-106); NT PRO-BNP 52 pg/mL (<125); Potassium 2.9 mmol/L (3.5-5.1); Protein, Total 8.2 g/dL (6.4-8.2); Sodium Level 140 mmol/L (136-145); Troponin (Emerg Dept Use Only) < 0.02 ng/mL (0.0-0.045)
[2020-10-28 23:45] LABS: Urine Blood Negative (Negative); Urine Glucose Negative (Negative); Urine Protein Negative (Negative); Urine Specific Gravity 1.015 (1.005-1.030)
[2020-10-29] MEDS ORDERED: POTASSIUM CL SA 10 MEQ TAB PO ONE (00:27)
[2020-10-29 01:10] LABS: Blood Gas Oxyhemoglobin 90.7 % (94-97); Blood O2 Saturation 92.8 % (92-98.5)
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
[2020-10-29 02:22] VITALS: TEMP 98.9
[2020-10-29 02:26] VITALS: BP 118/65; O2SAT 98
--- NOTE | 2020-10-29 07:27 | RAD REPORT ---
EXAM DESCRIPTION: RAD - Chest Single View - 10/29/2020 1:30 am CLINICAL HISTORY: COUGH COMPARISON: Chest Single View dated 10/04/2019; Thorax W/ Con dated 10/09/2019 FINDINGS: Lines: None. Lungs: No evidence of edema or pneumonia. Pleural: No significant pleural effusions or pneumothorax. Cardiac: The heart size is within normal limits. 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 Other: IMPRESSION: No acute cardiopulmonary disease.
--- NOTE | 2020-10-29 08:15 | EKG ---
Test Date: 2020-10-28 Test Time: 22:10:32 [employer]p Public Relations: [facility] MEASUREMENT RESULTS: Intervals: Rate: 70 OH: 144 QRSD: 76 QT: 414 QTc: 447 [place]: P: 22 OH: 144 QRS: -8 T: -11 INTERPRETIVE STATEMENTS: Normal sinus rhythm with sinus arrhythmia Normal ECG No previous ECG available for comparison Electronically Signed On 10-29-20 08:14:09 CDT by Davide Hernandez
--- NOTE | 2020-10-29 11:31 | RAD REPORT ---
EXAM DESCRIPTION: CT - Head Brain Wo Cont - 10/29/2020 6:03 am CLINICAL HISTORY: HEADACHE COMPARISON: None available TECHNIQUE: Axial CT of the head obtained from the skull apex to the skull base without contrast. Thi s exam was performed according to our departmental dose-optimization program, which includes automate d exposure control, adjustment of the mA and/or kV according to patient size and/or use of iterative reconstruction technique. FINDINGS: No acute intracranial hemorrhage identified. No mass, mass effect, shift of the midline, a bnormal extra-axial fluid collection or CT evidence of acute ischemic change identified. The ventricu lar system and sulcal spaces are not enlarged. Cavum septum pellucida. Scattered areas of hypodensi ty throughout the supratentorial white matter are nonspecific and may be related to chronic small ves samira ischemic change. The visualized paranasal sinuses and mastoid air cells are well aerated. No skull fracture identifi ed. Visualized orbits and globes are unremarkable. Atherosclerotic calcification of the intracranial internal carotid arteries. IMPRESSION: 1. No acute intracranial abnormality by CT criteria. Specifically, no CT evidence of a cute ischemic change related to carbon monoxide poisoning by CT criteria. [facility] for acute ischemic change. Electronically signed by: Torsten Garner 10/28/2020 10:54 PM CDT Due to temporary technical issues with the PACS/Fluency reporting system, reports are being signed by the in house radiologists without review as a courtesy to insure prompt reporting. The interpreting radiologist is fully responsible for the content of the report.
== END 2020-10-29 01:55 | disposition home or self-care (01) ==
LOC: ER 21:08
DX: R51.9 Headache, unspecified (principal); T58.91XA Toxic effect of carbon monoxide from unspecified source, accidental (unintentional), initial encounter; I10 Essential (primary) hypertension; Z88.0 Allergy status to penicillin; Z88.1 Allergy status to other antibiotic agents
CPT/HCPCS: 93005; 85025; 80048; 36415; 83735; 80076; 81003; 84484; 83880; 70450; 71045; 82805 ×2; 96374; 99284; J7030; J2405

== ENCOUNTER 2021-07-20 16:28 | Observation (INO) | payer BC ==
--- OUTSIDE RECORDS SUMMARY | 2021-07-20 16:31 | XMS REPORT | Continuity of Care Document ---
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 result as normal/abnor mal. HGB (test code = 718-7) 14.4 g/dL 11.6-15 HCT (test code = 4544-3) 42.2 % 35.7-45.2 MCV (test code = 787-2) 93.8 fL 80.6-95.5 MCH (test code = 785-6) 32.0 pg 25.9-32.8 MCHC (test code = 786-4) 34.1 g/dL 31.6-35.1 RDW-SD (test code = 59577-6) 45.3 fL 39-49.9 RDW-CV (test code = 788-0) 13.2 % 12-15.5 PLT (test code = 777-3) See_Comment [Au tomated message] The system which ge nerated this result transmit carina reference range: 166 - 35 8 10*3/?L. The reference range was not used to interpret th is result as normal/abnormal . MPV (test code = 04236-2) 10.4 fL 9.5-12.9 NRBC/100 WBC (test code = See_Comment [ Automated message] The [id number]) system which ge nerated this result transmit carina reference range: 0.0 - 10 .0 /100 WBCs. The reference r [place] was not used to interpr et this result as normal/abnor mal. NRBC x10^3 (test code = <0.01 See_Comment [Au tomated message] The [id number]) system which ge nerated this result transmit carina reference range: 10*3/?L. The reference range was not u sed to interpret this result as normal/abnormal . GRAN MAT (NEUT) % (test code 61.1 % = 770-8) IMM GRAN % (test code = 0.50 % 9341575015) LYMPH % (test code = 736-9) 29.3 % MONO % (test code = 5905-5) 8.4 % EOS % (test code = 713-8) 0.2 % BASO % (test code = 706-2) 0.5 % GRAN MAT x10^3(ANC) (test 5.43 10*3/uL 1.88-7.09 code = 6497651600) IMM GRAN x10^3 (test code = 0.04 10*3/uL 0-0.06 3965714953) LYMPH x10^3 (test code = 2.60 10*3/uL 1.32-3.29 731-0) MONO x10^3 (test code = 0.75 10*3/uL 0.33-0.92 742-7) EOS x10^3 (test code = <0.03 0.03-0.39 L 711-2) BASO x10^3 (test code = 0.04 10*3/uL 0.01-0.07 704-7) Lab Interpretation (test Abnormal code = 04751-8) [facility] Test Item Value Reference Range Interpretation Comments APPEARANCE (test code = Clear Clear 8930901369) COLOR (test code = Yellow Yellow 3498864958) PH (test code = 4.8-8.0 3603039681) SP GRAVITY (test code = 1.003-1.030 3478759211) GLU U QUAL (test code = Negative Negative 7021856017) BLOOD (test code = Negative Negative 9430437386) KETONES (test code = Negative Negative 9499709223) PROTEIN (test code = Negative Negative 2887-8) UROBILIN (test code = 0.2 mg/dL See_Comment [Auto mated message] 0385587600) The system [employer] generated this result transmit carina reference range : 0-1.0 mg/dL. Th e reference range was not used to interpret this result as normal/abnormal . BILIRUBIN (test code = Negative Negative 0349354444) NITRITE (test code = Negative Negative 1619573772) LEUK JEFFY (test code = Negative Negative 4369661737) RBC/HPF (test code = See_Comment [Autom ated message] 4613475201) The system [employer] generated this result transmit carina reference range : 0 - 3 HPF. The refe rence range was not u sed to interpret th is result as normal/abnormal . WBC/HPF (test code = See_Comment [Autom ated message] 0799055110) The system [employer] generated this result transmit carina reference range : 0 - 5 HPF. The refe rence range was not u sed to interpret th is result as normal/abnormal . BACTERIA (test code = Moderate Negative A 3322944041) MUCOUS (test code = Slight Negative LPF A 4870206546) AMORPHOUS (test code = 1+ HPF 6966920122) SQ EPITH (test code = HPF 8956614741) Lab Interpretation (test Abnormal code = 07379-7) [facility]. METABOLIC PANEL ([id number])2018-09-09 19:09:00 Test Item Value Reference Range Interpretation Comments NA (test code = 144 mmol/L 135-145 2443470245) K (test code = 4.2 mmol/L 3.5-5 8612440518) CL (test code = 109 mmol/L 98-108 H 6058388934) CO2 TOTAL (test code = 24 mmol/L 23-31 0557849073) AGAP (test code = 2-16 3416172496) BUN (test code = 16 mg/dL 7-23 7024450190) GLUCOSE (test code = 147 mg/dL 70-110 H 8928879634) CREATININE (test code = 0.95 mg/dL 0.5-1.04 5765142325) TOTAL BILI (test code = 0.6 mg/dL 0.1-1.1 9187898280) CALCIUM (test code = 10.4 mg/dL 8.6-10.6 7853887471) T PROTEIN (test code = 9.0 g/dL 6.3-8.2 H 2588278173) ALBUMIN (test code = 5.2 g/dL 3.5-5 H 5367901538) ALK PHOS (test code = 170 U/L 34-122 H 7068276106) ALT(SGPT) (test code = 45 U/L 9-51 9007396590) AST(SGOT) (test code = 34 U/L 13-40 8475401687) eGFR Calculation mL/min/1.73m2 (Non-) (test code = 1909906557) eGFR Calculation mL/min/1.73m2 () (test code = 7624733365) ERICA (test code = ERICA) Association of Glomerular Filtration Rate (GFR) and Staging of Kidney Disease*+ + + +| GFR (mL/min/1.73 m2)?| With Kidney Damage?|?Without Kidney Damage+ --------+ --------+ +|?>90?|?S tage one?|? Normal?+ ---------+ ---------+ +|?60-89? |?Stage two?|? Decreased GFR? + --+ --+ ------+|?30-59?|?Stage three?|? Stage three? + --+ --+ ------+|?15-29?|?Stage four? |? Stage four?+ -------+ -------+ +|?<15 (or dialysis)?|?Stage five? |? Stage five?+ -------+ -------+ +*Each stage assumes the associated GFR level has been in effect for at least three months.?Stages 1 to 5, with or without kidney disease, indicate chronic kidney disease.Notes: Determination of stages one and two (with eGFR >59mL/min/1.73 m2) requires estimation of kidney damage for at least three months as defined by structural or functional abnormalities of the kidney, manifested by either:Pathological abnormalities or Markers of kidney damage (including abnormalities in the composition of the blood or urine or abnormalities in imaging tests). Lab Interpretation Abnormal (test code = 99245-5) [facility] [id number] 18:29:44* * * * * * * * ORIGINAL REPORT * * * * * * * *EXAM: CT CERVICAL SPINE WO CONTRAST, CT THORACIC SPINE WO CONTRAST, CTLUMBAR SPINE WO CONTRAST HISTORY: C-spine trauma, low clinical risk (NEXUS/CCR) TECHNIQUE: CT of the cervical spine was performed without intravenouscontrast. Sagittal and coronal reformats were generated. COMPARISON: None. FINDINGS: There is straightening of cervical lordosis. The vertebral bodies arenormal in height and alignment. No acute fracture or subluxation. Normal alignment of atlantoaxial joint and intracranial cervical junction.Mild degenerative changes of the atlantoaxial joint noted. Disc spaces are preserved. Mild to moderate bilateral C2-C3 and C3- C4 facetarthrosisnoted. The prevertebral soft tissues are unremarkable. The visualized lung apices are clear. THORACIC SPINE The vertebral bodies are normal in height and alignment. Prominent trabecular pattern of the C6 vertebral body likely reflective ofhemangioma. Focal sclerotic lesion is noted in the right pedicle of M57dsqzlnerg body, indeterminant. Prominent anterior projecting osteophytes are noted at T5-T9. Disc spacesare preserved. The paraspinal soft tissues are unremarkable. An expansile lucent lesion isseen involving the right fourth ribposteriorly with associated mild extrapleural soft tissue thickening. Thecortex appears intact. CT LUMBAR SPINE There are 5 nonrib-bearing lumbar type segments. The vertebral bodies arenormal in height and alignment. No acute fracture or subluxation. Disc spaces are preserved. Moderate to severe facet arthrosis at L4-L5 andL5-S1 bilaterally. Intact cortical marginsof the sacrum and pelvic bones. Sclerotic lesionsare noted in the sacrum and left iliac bone. The paraspinal soft tissues are unremarkable. Changes of hysterectomy noted with small fluid density lesionseenposterior to the cervix measures approximately 1.5 cm may representperitoneal inclusion cyst. Diverticular disease of the ascending and sigmoid colon noted. IMPRESSION No acute fracture or traumatic malalignment of the cervical, thoracic orlumbar spine. Sclerotic lesions are noted in the sacrum, left iliac bone and right H71rsrqzam, indeterminant may represent bony islands but sclerotic metastasiscannot be excluded. Clinical correlation and further evaluation by bonescan is recommended. An expansile lucent lesion with intact cortical margins is noted in theright fourth rib posteriorly favored to be of benign etiology may representfibrous dysplasia or aneurysmal bone cyst. Metastasis is less likelypossibility but cannot be excluded. Further evaluation is recommended onnonemergent basis. ? [facility], Radiant Results Inft User - 09/09/2018 1:29 PM CDT* * * * * * * * ORIGINAL REPORT * * * * * * * *EXAM: CT CERVICAL SPINE WO CONTRAST, CT THORACIC SPINE WO CONTRAST, CTLUMBAR SPINE WO CONTRASTHISTORY: C-spine trauma, low clinical risk (NEXUS/CCR) TECHNIQUE: CT of the cervical spine was performed without intravenouscontrast. Sagittal and coronal reformats were generated.COMPARISON: None.FINDINGS:There is straightening of cervical lordosis. The vertebral bodies arenormal in height and alignment.No acute fracture or subluxation. Normal alignment of atlantoaxial joint and intracranial cervical junction.Mild degenerative changes of the atlantoaxial joint noted.Disc spaces are preserved. Mild to moderate bilateral C2-C3 and C3-C4 facetarthrosis noted.The prevertebral soft tissues are unremarkable.The visualized lung apices are clear.THORACIC SPINEThe vertebral bodies are normal in height and alignment.Prominent trabecular pattern of the C6 vertebral body likely reflective ofhemangioma. Focal sclerotic lesion is noted in the right pedicle of F27yowmpfqok body, indeterminant.Prominent anterior p rojecting osteophytes are noted at T5-T9. Disc spacesare preserved.The paraspinal soft tissues are unremarkable.An expansile lucent lesion is seen involving the right fourth ribposteriorly with associated mild extrapleural soft tissue thickening. Thecortex appears intact.CT LUMBAR SPINEThere are 5 nonrib- bearing lumbar type segments. The vertebral bodies arenormal in height and alignment. No acute fracture or subluxation.Disc spaces are preserved. Moderate to severe facet arthrosis at L4-L5 andL5-N5pjlmyehnavt. Intact cortical margins of the sacrum and pelvic bones. Sclerotic lesionsare noted in the sacrum and left iliac bone.The paraspinal soft tissues are unremarkable.Changes of hysterectomy noted with small fluid density lesion seenposterior to the cervix measures approximately 1.5 cm may representperitoneal inclusion cyst.Diverticular disease of the ascending and sigmoid colon noted.IMPRESSIONNo acute fracture or traumatic malalignment of the cervical, thoracic orlumbar spine.Sclerotic lesions are noted in the sacrum, left iliac bone and right [id number], indeterminant may represent bony islands but sclerotic metastasiscannot be excluded. Clinical correlation and further evaluation by thaddeus buckner is recommended.An expansile lucent lesion with intact cortical margins is noted in theright fourth rib posteriorly favored to be of benign etiology may representfibrous dysplasia or aneurysmal bone cyst. Metastasis is less likelypossibility but cannot be excluded. Further evaluation is recommended onnonemergent basis.[facility] [id number] 18:29:44* * * * * * * * ORIGINAL REPORT * * * * * * * *EXAM: CT CERVICAL SPINE WO CONTRAST, CT THORACIC SPINE WO CONTRAST, CTLUMBAR SPINE WO CONTRAST HISTORY: C-spine trauma, low clinical risk (NEXUS/CCR) TECHNIQUE: CT of the cervical spine was performed without intravenouscontrast. Sagittal and coronal reformats were generated. COMPARISON: None. FINDINGS: There is straightening of cervical lordosis. The vertebral bodies arenormal in height and alignment. No acute fracture or subluxation. Normal alignment of atlantoaxial joint and intracranial cervical junction.Mild degenerative changes of the atlantoaxial joint noted. Disc spaces are preserved. Mild to moderate bilateral C2-C3 and C3-C4 facetarthrosisnoted. The prevertebral soft tissues are unremarkable. The visualized lung apices are clear. THORACIC SPINE The vertebral bodies are normal in height and alignment. Prominent trabecular pattern of the C 6 vertebral body likely reflective ofhemangioma. Focal sclerotic lesion is noted in the right pedicle of Q36lxgotxmlg body, indeterminant. Prominent anterior projecting osteophytes are noted at T5-T9. Disc spacesare preserved. The paraspinal soft tissues are unremarkable. An expansile lucent lesion isseen involving the right fourth ribposteriorly with associated mild extrapleural soft tissue thickening. Thecortex appears intact. CT LUMBAR SPINE There are 5 nonrib- bearing lumbar type segments. The vertebral bodies arenormal in height and alignment. No acute fracture or subluxation. Disc spaces are preserved. Moderate to severe facet arthrosis at L4-L5 andL5-S1 bilaterally. Intact cortical marginsof the sacrum and pelvic bones. Sclerotic lesionsare noted in the sacrum and left iliac bone. The paraspinal soft tissues are unremarkable. Changes of hysterectomy noted with small fluid density lesionseenposterior to the cervix measures approximately 1.5 cm may representperitoneal inclusion cyst. Div erticular disease of the ascending and sigmoid colon noted. IMPRESSION No acute fracture or traumatic malalignment of the cervical, thoracic orlumbar spine. Sclerotic lesions are noted in the sacrum, left iliac bone and right H96lpriyvt, indeterminant may represent bony islands but sclerotic metastasiscannot be excluded. Clinical correlation and further evaluation by bonescan is recommended. An expansile lucent lesion with intact cortical margins is noted in theright fourth rib posteriorly favored to be of benign etiology may representfibrous dysplasia or aneurysmal bone cyst. Metastasis is less lik elypossibility but cannot be excluded. Further evaluation is recommended onnonemergent basis. ? [facility], [facility]iant Results Inft User - 09/09/2018 1:29 PM CDT* * * * * * * * ORIGINAL REPORT * * * * * * * *EXAM: CT CERVICAL SPINE WO CONTRAST, CT THORACIC SPINE WO CONTRAST, CTLUMBAR SPINE WO CONTRASTHISTORY: C- spine trauma, low clinical risk (NEXUS/CCR) TECHNIQUE: CT of the cervical spine was performed without intravenouscontrast. Sagittal and coronal reformats were generated.COMPARISON: None.FINDINGS:There is straightening of cervical lordosis. The vertebral bodies arenormal in height and alignment.No acute fracture or subluxation. Normal alignment of atlantoaxial joint and intracranial cervical ju nction.Mild degenerative changes of the atlantoaxial joint noted.Disc spaces are preserved. Mild to moderate bilateral C2-C3 and C3-C4 facetarthrosis noted.The prevertebral soft tissues are unremarkable.The visualized lung apices are clear.THORACIC SPINEThe vertebral bodies are normal in height and ali gnment.Prominent trabecular pattern of the C6 vertebral body likely reflective ofhemangioma. Focal sclerotic lesion is noted in the right pedicle of I86bbhckwhym body, indeterminant.Prominent anterior projecting osteophytes are noted at T5-T9. Disc spacesare preserved.The paraspinal soft tissues are un remarkable.An expansile lucent lesion is seen involving the right fourth ribposteriorly with associated mild extrapleural soft tissue thickening. Thecortex appears intact.CT LUMBAR SPINEThere are 5 nonrib-bearing lumbar type segments. The vertebral bodies arenormal in height and alignment. No acute fra cture or subluxation.Disc spaces are preserved. Moderate to severe facet arthrosis at L4-L5 andL5-B0dlnnrtlibvj. Intact cortical margins of the sacrum and pelvic bones. Sclerotic lesionsare noted in the sacrum and left iliac bone.The paraspinal soft tissues are unremarkable.Changes of hysterectomy noted with small fluid density lesion seenposterior to the cervix measures approximately 1.5 cm may representperitoneal inclusion cyst.Diverticular disease of the ascending and sigmoid colon noted.IMPRESSIONNo acute fracture or traumatic malalignment of the cervical, thoracic orlumbar spine.Sclerotic lesi ons are noted in the sacrum, left iliac bone and right [id number], indeterminant may represent bony islands but sclerotic metastasiscannot be excluded. Clinical correlation and further evaluation by bonescan is recommended.An expansile lucent lesion with intact cortical margins is noted in theright fourth rib posteriorly favored to be of benign etiology may representfibrous dysplasia or aneurysmal bone cyst. Metastasis is less likelypossibility but cannot be excluded. Further evaluation is recommended onnonemergent basis.[facility] [id number] 18:29:44* * * * * * * * ORIGINAL REPORT * * * * * * * *EXAM: CT CERVICAL SPINE WO CONTRAST, CT THORACIC SPINE WO CONTRAST, CTLUMBAR SPINE WO CONTRAST HISTORY: C-spine trauma, low clinical risk (NEXUS/CCR) TECHNIQUE: CT of the cervical spine was performed without intravenouscontrast. Sagittal and coronal reformats were generated. COMPARISON: None. FINDINGS: There is straightening of cervical lordosis. The ve rtebral bodies arenormal in height and alignment. No acute fracture or subluxation. Normal alignment of atlantoaxial joint and intracranial cervical junction.Mild degenerative changes of the atlantoaxial joint noted. Disc spaces are preserved. Mild to moderate bilateral C2-C3 and C3-C4 facetarthrosisnoted. The prevertebral soft tissues are unremarkable. The visualized lung apices are clear. THORACIC SPINE The vertebral bodies are normal in height and alignment. Prominent trabecular pattern of the C6 vertebral body likely reflective ofhemangioma. Focal sclerotic lesion is noted in the right pedicle of L78qrysnbdib body, indeterminant. Prominent anterior projecting osteophytes are noted at T5-T9. Disc spacesare preserved. The paraspinal soft tissues are unremarkable. An expansile lucent lesion isseen involving the right fourth ribposteriorly with associated mild extrapleural soft tissue thickening. Thecortex appears intact. CT LUMBAR SPINE There are 5 nonrib-bearing lumbar type segments. The vertebral bodies arenormal in height and alignment. No acute fracture or subluxation. Disc spaces are preserved. Moderate to severe facet arthrosis at L4-L5 andL5-S1 bilaterally. Intact cortical marginsof the sacrum and pelvic bones. Sclerotic lesionsare noted in the sacrum and left iliac bone. The paraspinal soft tissues are unremarkable. Changes of hysterectomy noted with small fluid density lesionseenposterior to the cervix measures approximately 1.5 cm may representperitoneal inclusion cyst. Diverticular disease of the ascending and sigmoid colon noted. IMPRESSION No acute fracture or traumatic malalignment of the cervical, thoracic orlumbar spine. Sclerotic lesions are noted in the sacrum, left iliac bone and right [id number], indeterminant may represent bony islands but sclerotic metastasiscannot be excluded. Clinical correlation and further evaluation by bonescan is recommended. An expansile lucent lesion with intact cortical margins is noted in theright fourth rib posteriorly favored to be of benign etiology may representfibrous dysplasia or aneurysmal bone cyst. Metastasis is less likelypossibility but cannot be excluded. Further evaluation is recommended onnonemergent basis. ? [facility], [facility] Results Inft User - 09/09/2018 1:29 PM CDT* * * * * * * * ORIGINAL REPORT * * * * * * * *EXAM: CT CERVICAL SPINE WO CONTRAST, CT THORACIC SPINE WO CONTRAST, CTLUMBAR SPINE WO CONTRASTHISTORY: C-spine trauma, low clinical risk (NEXUS/CCR) TECHNIQUE: CT of the cervical spine was performed without intravenouscontrast. Sagittal and coronal reformats were generated.COMPARISON: None.FINDINGS:There is straightening of cervical lordosis. The vertebral bodies arenormal in height and alignment.No acute fracture or subluxation. Normal alignment of atlantoaxial joint and intracranial cervical junction.Mild degenerative changes of the atlantoaxial joint noted.Disc spaces are preserved. Mild to moderate bilateral C2-C3 and C3-C4 facetarthrosis noted.The prevertebral soft tissues are unremarkable.The visualized lung apices are clear.THORACIC SPINEThe vertebral bodies are normal in height and alignment.Prominent trabecular pattern of the C6 vertebral body likely reflective ofhemangioma. Focal sclerotic lesion is noted in the right pedicle of F02tujdoiyde body, indeterminant.Prominent anterior p rojecting osteophytes are noted at T5-T9. Disc spacesare preserved.The paraspinal soft tissues are unremarkable.An expansile lucent lesion is seen involving the right fourth ribposteriorly with associated mild extrapleural soft tissue thickening. Thecortex appears intact.CT LUMBAR SPINEThere are 5 nonrib- bearing lumbar type segments. The vertebral bodies arenormal in height and alignment. No acute fracture or subluxation.Disc spaces are preserved. Moderate to severe facet arthrosis at L4-L5 andL5-Q4adjzptskxsl. Intact cortical margins of the sacrum and pelvic bones. Sclerotic lesionsare noted in the sacrum and left iliac bone.The paraspinal soft tissues are unremarkable.Changes of hysterectomy noted with small fluid density lesion seenposterior to the cervix measures approximately 1.5 cm may representperitoneal inclusion cyst.Diverticular disease of the ascending and sigmoid colon noted.IMPRESSIONNo acute fracture or traumatic malalignment of the cervical, thoracic orlumbar spine.Sclerotic lesions are noted in the sacrum, left iliac bone and right N46lrixirn, indeterminant may represent bony islands but sclerotic metastasiscannot be excluded. Clinical correlation and further evaluation by thaddeus buckner is recommended.An expansile lucent lesion with intact cortical margins is noted in theright fourth rib posteriorly favored to be of benign etiology may representfibrous dysplasia or aneurysmal bone cyst. Metastasis is less likelypossibility but cannot be excluded. Further evaluation is recommended onnonemergent basis.[facility]"
[2021-07-20] MEDS ORDERED: ASPIRIN 81 MG CHEWABLE TABLET ONE (17:04)
[2021-07-20 18:12] LABS: Absolute Lymphocytes (CBC) 2.5 K/uL (0.7-4.9); Hematocrit 39.5 % (36.0-45.0); Lymphocytes % 30.9 % (15.3-44.8); MPV 8.4 fL (7.6-11.3); RBC Red Blood Cell Count 4.12 M/uL (3.86-4.86)
[2021-07-20 18:16] LABS: Protime INR 1.08
--- NOTE | 2021-07-20 18:18 | RAD REPORT ---
EXAM DESCRIPTION: RAD - Chest Single View - 07/20/2021 6:02 pm CLINICAL HISTORY: CHEST PAIN COMPARISON: Portable chest 10/28/2020, CT chest 10/09/2019 TECHNIQUE: AP portable chest image was obtained 07/20/2021 6:02 pm . FINDINGS: Lung volumes are low. No acute lung parenchymal process. Baseline interstitial pattern not clearly different from comparison. Heart and vasculature are normal. No measurable pleural effusion and no pneumothorax. No acute bone finding. Posterior right fourth rib lesion does not appear differe nt by chest film. No acute aortic findings suspected. IMPRESSION: No acute cardiopulmonary process.
[2021-07-20 18:23] LABS: Albumin 4.2 g/dL (3.4-5.0); Bilirubin Direct 0.2 mg/dL (0-0.2); Bilirubin Total 0.5 mg/dL (0.2-1.0); Protein, Total 8.2 g/dL (6.4-8.2); Troponin High Sensitivity 6.2 pg/mL (<58.9)
[2021-07-20 18:26] LABS: Potassium 2.9 mmol/L (3.5-5.1)
[2021-07-20] MEDS ORDERED: POTASSIUM CL SA 10 MEQ TAB PO ONE (18:33)
[2021-07-20] MEDS ORDERED: ONDANSETRON 4 MG (ODT) TAB ONE (18:33)
--- NOTE | 2021-07-20 19:05 | ER ---
Nurse's Notes [facility] Name: Evelyn Rodgers Age: 61 yrs Sex: Female : 1960 Arrival Date: 07/20/2021 Time: 16:31 Bed 20 Private MD: Ajit Muñoz Diagnosis: Chest pain, unspecified;Elevated D-dimer Presentation: 07/20 16:45 Chief complaint: Patient states: Started Farzaga 5mg and started having chest pain, ww palpatitions, nausea, right arm feels heavy. Coronavirus screen: Client denies travel out of the [place] in the last 14 days. Ebola Screen: Patient denies travel to an Ebola-affected area in the 21 days before illness onset. Initial Sepsis Screen: Does the patient meet any 2 criteria? No. Patient's initial sepsis screen is negative. Does the patient have a suspected source of infection? No. Patient's initial sepsis screen is negative. Risk Assessment: Do you want to hurt yourself or someone else? Patient reports no desire to harm self or others. Onset of symptoms is unknown. 16:45 Method Of Arrival: Ambulatory ww 16:45 Acuity: DARIUS 3 ww Triage Assessment: 16:47 General: Appears uncomfortable, Behavior is cooperative. Pain: Complains of pain in ww chest Quality of pain is described as heavy. Neuro: Level of Consciousness is awake, alert, obeys commands, Oriented to person, place, time, situation, Moves all extremities. Gait is steady, Speech is normal. Cardiovascular: Capillary refill < 3 seconds Patient's skin is warm and dry. Respiratory: Airway is patent Respiratory effort is even, unlabored, Respiratory pattern is regular, symmetrical. Historical: - Allergies: 16:47 Ciprofloxacin; ww 16:47 Levaquin; ww 16:47 PENICILLINS; ww - PMHx: 16:47 Fibromyalgia; GERD; Hypertension; Diabetes mellitus; ww - Immunization history:: Adult Immunizations up to date. - Social history:: Smoking status: Patient denies any tobacco usage or history of. Patient uses street drugs, marijuana. Screenin:48 Abuse screen: Denies threats or abuse. Denies injuries from another. Nutritional ww screening: No deficits noted. Tuberculosis screening: No symptoms or risk factors identified. Fall Risk None identified. Assessment: 18:25 Reassessment: Patient and/or family updated on plan of care and expected duration. Pain tw2 level reassessed. Patient is alert, oriented x 3, equal unlabored respirations, skin warm/dry/pink. pt c/o nauseousness, provider notified. 07/21 02:14 Reassessment: Attempted to call report to RANDY Malone and was told to call back in 15 ll3 mins. 02:40 Pain: ll3 02:40 Pain: Pain began. ll3 Vital Signs: 07/20 16:45 BP 137 / 91; Pulse 94; Resp 18; Temp 97.0; Pulse Ox 98% ; Weight 100.7 kg; Height 5 ft. ww 6 in. (167.64 cm); 18:25 BP 121 / 77; Pulse 86; Resp 17; Pulse Ox 100% on R/A; tw2 07/21 00:00 BP 113 / 91; Pulse 79; Resp 16; Pulse Ox 97% on R/A; ll3 01:30 BP 122 / 74; Pulse 76; Resp 17; Pulse Ox 98% on R/A; ll3 02:45 BP 108 / 81; Pulse 85; Resp 16; Pulse Ox 98% on R/A; ll3 07/20 16:45 Body Mass Index 35.83 (100.70 kg, 167.64 cm) ww ED Course: 07/20 16:31 Patient arrived in ED. am2 16:31 Ajit Muñoz MD is Private Physician. am2 16:38 Nohemi Payton PA is PHCP. en 16:38 Eric Nolen MD is Attending Physician. en 16:47 Triage completed. ww 16:47 Arm band placed on left wrist. ww 16:48 EKG done. ww 16:56 Shirin Anaya RN is Primary Nurse. ld1 17:00 EKG done, by ED staff, reviewed by Eric Nolen MD. mb7 17:31 Missed attempt(s): 22 gauge in left antecubital area. Bleeding controlled, band aid tw2 applied, catheter tip intact. Missed attempt(s): 22 gauge in left forearm. Bleeding controlled, band aid applied, catheter tip intact. 17:43 Initial lab(s) drawn, by id, sent to lab. Inserted saline lock: 22 gauge in left iw forearm, using aseptic technique. Blood collected. 18:04 XRAY Chest (1 view) In Process Unspecified. EDMS 19:03 Sin Dill MD is Hospitalizing Provider. en 07/21 02:12 No provider procedures requiring assistance completed. Patient admitted, IV remains in ll3 place. Patient maintains SpO2 saturation greater than 95% on room air. 02:13 Patient has correct armband on for positive identification. Placed in gown. Bed in low ll3 position. Call light in reach. Side rails up X 1. Client placed on continuous cardiac and pulse oximetry monitoring. NIBP monitoring applied. Administered Medications: 07/20 17:02 Drug: Aspirin Chewable Tablet 324 mg Route: PO; ld1 18:31 Follow up: Response: No adverse reaction tw2 18:31 Drug: Ondansetron 4 mg Route: PO; tw2 18:45 Drug: Potassium Chloride 40 mEq {Note: Administered by Chari Adams RN.} Route: PO; ll3 Medication: 07/21 02:13 VIS not applicable for this client. ll3 Outcome: 07/20 19:04 Decision to Hospitalize by Provider. en 07/21 02:40 Admitted to Tele accompanied by nurse, via stretcher, room 412, with chart, Report ll3 called to RANDY Malone Condition: stable Instructed on the need for admit, Demonstrated understanding of instructions. 03:26 Patient left the ED. ll3 Signatures: Dispatcher [employer] EDMS Lucy Brown RN RN iw Chari Adams RN RN tw2 Sandra Heart am2 Shirin Anaya RN RN ld1 Joe Carson RN RN ll3 Lisy Esquivel [facility] Nicole Da Silva RN RN ww Newkirk, Elizabeth, PA PA en Corrections: (The following items were deleted from the chart) 02:15 02:13 Pain: Pain does not radiate. Pain began ll3 ll3
--- NOTE | 2021-07-20 19:05 | EDPHYS ---
Physician Documentation [facility] Name: Evelyn Rodegrs Age: 61 yrs Sex: Female : 1960 Arrival Date: 07/20/2021 Time: 16:31 Bed 20 Private MD: Ajit Muñoz ED Physician Eric Nolen HPI: 07/20 17:13 This 61 yrs old Black Female presents to ER via Ambulatory with complaints of Chest en Pain. 17:13 7-year-old female with history of hypertension, diabetes, CKD not on dialysis presents en to ED with substernal nonradiating chest heaviness for the last 4 days. She reports the pain has been constant but waxes and wanes in intensity. It is nonradiating. Is associated with nausea but no shortness of breath, dyspnea on exertion, lightheadedness, palpitations. No orthopnea or PND. Patient reports she has been under a lot of stress recently due to concerns about her daughter.. Historical: - Allergies: 16:47 Ciprofloxacin; ww 16:47 Levaquin; ww 16:47 PENICILLINS; ww - PMHx: 16:47 Fibromyalgia; GERD; Hypertension; Diabetes mellitus; ww - Immunization history:: Adult Immunizations up to date. - Social history:: Smoking status: Patient denies any tobacco usage or history of. Patient uses street drugs, marijuana. ROS: 17:13 Constitutional: Negative for fever, chills, and weight loss. en 17:13 Cardiovascular: Positive for chest pain, Negative for edema, orthopnea, palpitations, paroxysmal nocturnal dyspnea. 17:13 Respiratory: Negative for cough, shortness of breath. 17:13 Abdomen/GI: Positive for nausea, Negative for abdominal pain, vomiting, diarrhea. 17:13 Back: Negative for decreased range of motion, pain at rest, pain with movement. 17:13 MS/extremity: Negative for swelling, tenderness. 17:13 Skin: Negative for rash. 17:13 Neuro: Negative for dizziness, numbness, tingling, weakness. 17:13 Psych: Positive for Increased stress at home. 17:13 All other systems are negative. Exam: 17:13 Constitutional: This is a well developed, well nourished patient who is awake, alert, en and in no acute distress. 17:13 Constitutional: The patient appears in no acute distress, alert, awake. 17:13 Eyes: Periorbital structures: appear normal, Pupils: equal, round, and reactive to light and accomodation, Extraocular movements: intact throughout. 17:13 ENT: Mouth: Oral mucosa: pink and intact, moist, Posterior pharynx: Airway: patent. 17:13 Neck: ROM/movement: is normal. 17:13 Chest/axilla: Reproducible chest wall tenderness to palpation as well as with resistance of the right upper extremity. No crepitus.. 17:13 Cardiovascular: Rate: normal, Rhythm: regular, Pulses: no pulse deficits are appreciated, Heart sounds: normal, no murmur, no rub, no gallop. 17:13 Respiratory: the patient does not display signs of respiratory distress, Respirations: normal, Breath sounds: are clear throughout, no rales, rhonchi, no stridor, no wheezing, no acute changes. 17:13 Abdomen/GI: Inspection: abdomen appears normal, Bowel sounds: normal, in all quadrants, Palpation: abdomen is soft and non-tender, in all quadrants. 17:13 Back: CVA tenderness, is absent. 17:13 Musculoskeletal/extremity: ROM: intact in all extremities, full active range of motion. 17:13 Skin: no rash present. 17:13 Neuro: Orientation: is normal, appropriate for stated age, no acute changes, to person, place \\T\\ time. Mentation: appropriate for stated age, no acute changes. 17:13 Psych: Behavior/mood is pleasant, cooperative, Affect is calm. Vital Signs: 16:45 BP 137 / 91; Pulse 94; Resp 18; Temp 97.0; Pulse Ox 98% ; Weight 100.7 kg; Height 5 ft. ww 6 in. (167.64 cm); 18:25 BP 121 / 77; Pulse 86; Resp 17; Pulse Ox 100% on R/A; tw2 07 00:00 BP 113 / 91; Pulse 79; Resp 16; Pulse Ox 97% on R/A; ll3 01:30 BP 122 / 74; Pulse 76; Resp 17; Pulse Ox 98% on R/A; ll3 02:45 BP 108 / 81; Pulse 85; Resp 16; Pulse Ox 98% on R/A; ll3 / 16:45 Body Mass Index 35.83 (100.70 kg, 167.64 cm) ww MDM: 07/20 17:07 Patient medically screened. en 17:13 Differential diagnosis: Costochondritis, ACS, angina, stress-induced chest pain. Data en reviewed: vital signs, nurses notes, lab test result(s), EKG, radiologic studies, and as a result, I will Will order imaging and labs.. 17:13 Data reviewed: EKG, and as a result, I will. ED course: EKG with sinus tachycardia at en 102. No ST-T wave changes. No STEMI.. 19:02 ED course: With patient. Will admit for observation for serial troponins and VQ scan. en Patient's creatinine is 1.6 which is increased from a year ago at 1.3. She does have CKD so contrast load for CTA of the chest is not recommended. Will admit for V/Q. 07/20 16:54 Order name: Basic Metabolic Panel; Complete Time: 19:01 en 07/20 16:54 Order name: CBC with Diff; Complete Time: 18:24 en 07/20 16:54 Order name: D-Dimer; Complete Time: 18:24 en 07/20 16:54 Order name: LFT's; Complete Time: 19:01 en 07/20 16:54 Order name: NT PRO-BNP; Complete Time: 19:01 en 07/20 16:54 Order name: PT-INR; Complete Time: 18:24 en 07/20 16:54 Order name: Troponin HS; Complete Time: 19:01 en 07/20 16:54 Order name: XRAY Chest (1 view); Complete Time: 18:24 en 07/20 19:09 Order name: COVID-19 SARS RT PCR (Document "Date of Onset" if Symptomatic); Complete ld1 Time: 21:51 07/21 00:27 Order name: Glucose, Ancillary Testing EDMA 07/21 00:55 Order name: Troponin High Sensitivity EDMA 07/20 16:54 Order name: EKG; Complete Time: 16:55 en 07/20 16:54 Order name: Cardiac monitoring; Complete Time: 17:00 en 07/20 16:54 Order name: EKG - Nurse/Tech; Complete Time: 17:00 en 07/20 16:54 Order name: IV Saline Lock; Complete Time: 17:07 en 07/20 16:54 Order name: Labs collected and sent; Complete Time: 17:44 en 07/20 16:54 Order name: O2 Per Protocol; Complete Time: 17:00 en 07/20 16:54 Order name: O2 Sat Monitoring; Complete Time: 17:00 en Administered Medications: 17:02 Drug: Aspirin Chewable Tablet 324 mg Route: PO; ld1 18:31 Follow up: Response: No adverse reaction tw2 18:31 Drug: Ondansetron 4 mg Route: PO; tw2 18:45 Drug: Potassium Chloride 40 mEq {Note: Administered by Chari Adams RN.} Route: PO; ll3 Disposition: 07/21 18:49 Co-signature as Attending Physician, Eric Nolen MD. rn Disposition Summary: 07/20/21 19:04 Hospitalization Ordered Hospitalization Status: Observation en Provider: Sin Dill Condition: Stable en Problem: new en Symptoms: are unchanged en Bed/Room Type: Standard en Location: Telemetry/MedSurg (observation)(07/21/21 00:57) Room Assignment: [facility](07/21/21 01:13) mw Diagnosis - Chest pain, unspecified en - Elevated D-dimer en Forms: - Medication Reconciliation Form en - SBAR form en Signatures: Dispatcher [employer] EDMS Aliza Lundberg RN RN mw Ballard, Brenda RN Eric Trevizo MD MD rn Attema, Lee, ACCOUNTS ADJUSTABLE CLERK-C ACCOUNTS ADJUSTABLE CLERK-Cla1 Chari Adams RN RN tw2 Shirin Anaya RN RN ld1 Joe Carson RN RN 3 Nicole Da Silva RN RN ww Newkirk, Elizabeth, PA PA en Corrections: (The following items were deleted from the chart) 07/20 18:54 18:25 Chest For PE Angio+CT.RAD.BRZ ordered. EDMS EDMS 20:57 19:04 Telemetry/MedSurg (observation) en bb 20:57 19:04 en bb 07/21 00:57 07/20 20:57 BR ER HOLD bb 07/21 00:57 07/20 20:57 ERHOLD- bb 07/21 01:13 00:57 [facility]
--- NOTE | 2021-07-20 19:45 | P.HP ---
Certification for Inpatient Patient admitted to: Observation With expected LOS: <2 Midnights Patient will require the following post-hospital care: None Practitioner: I am a practitioner with admitting privileges, knowledge of patient current condition, hospital course, and medical plan of care. Services: Services provided to patient in accordance with Admission requirements found in Title 42 Section 412.3 of the Code of Federal Regulations Patient History Date of Service: 07/20/21 Reason for admission: Chest pain History of Present Illness: 61-year-old female history of diabetes mellitus type [id number], hypertension presents emergency department for 4 days of substernal pressure- like chest pain, shortness of breath. Patient attributes her symptoms to starting her Farxiga approximately 1 month ago. Patient was evaluated in the emergency department her initial troponin was negative and was 1.6 GFR 37 Was 2.9 D-dimer was mildly elevated 619 given her ongoing chest pain and mild elevation in D-dimer ED provider wishes to admit under observation for ACS rule out/PE rule out with likely VQ scan in the morning. She was given aspirin in the ER. Allergies ciprofloxacin Allergy (Unverified 06/10/17 04:36) Unknown levofloxacin [From Levaquin] Allergy (Unverified 06/10/17 04:36) Unknown Penicillins Allergy (Unverified 12/09/16 00:01) Unknown - Past Medical/Surgical History -: Diabetes mellitus type [id number] -: hypertension -: Hysterectomy -: Cholecystectomy -: rectocele Psychosocial/ Personal History: Patient lives at home with family - Family History Mother -: Other (see notes) (A. fib) - Social History Smoking Status: Former smoker Alcohol use: No CD- Drugs: Yes Caffeine use: No Place of Residence: Home Review of Systems 10-point ROS is otherwise unremarkable Respiratory: Shortness of Breath Cardiovascular: Chest Pain Physical Examination - Physical Exam General: Alert, In no apparent distress, Oriented x3 HEENT: Atraumatic, PERRLA, Mucous membr. moist/pink, EOMI, Sclerae nonicteric Neck: Supple, 2+ carotid pulse no bruit, No LAD, Without JVD or thyroid abnormality Respiratory: Clear to auscultation bilaterally, Normal air movement Cardiovascular: Regular rate/rhythm, Normal S1 S2 Capillary refill: <2 Seconds Gastrointestinal: Normal bowel sounds, No tenderness Musculoskeletal: No tenderness Integumentary: No rashes Neurological: Normal speech, Normal strength at 5/5 x4 extr, Normal tone - Studies Laboratory Data (last 24 hrs) 07/20/21 17:40: PT 11.9, INR 1.08 07/20/21 17:40: WBC 8.1, Hgb 13.2, Hct 39.5, Plt Count 245 07/20/21 17:40: Sodium 137, Potassium 2.9 L*, BUN 21 H, Creatinine 1.60 H, Glucose 105, Total Bilirubin 0.5, AST 16, ALT 18, Alkaline Phosphatase 107 Assessment and Plan - Plan Assessment: Chest pain rule out ACS/PE Diabetes mellitus type [id number] RAJENDRA with hypokalemia Plan: Chest pain rule out ACS/PE: Monitor on telemetry, cardiology consult in place. Aspirin, statin, beta-john. VQ scan ordered rule out pulmonary embolism. As needed pain medication. Diabetes mellitus type [id number]: ACH S Accu-Chek, mild sliding scale. RAJENDRA with hypokalemia: gentle IV fluids overnight potassium replaced in ER. Will recheck with AM labs DVT PPX: Heparin Code status:full Discharge Plan: Home Plan to discharge in: 24 Hours - Advance Directives Does patient have a Living Will: No Does patient have a Durable POA for Healthcare: No - Code Status/Comfort Care Code Status Assessed: Yes (Full Code) Critical Care: No Time Spent Managing Pts Care (In Minutes): 70
[2021-07-20] MEDS ORDERED: NA CHLORIDE 0.9% 1,000 ML IV SCH (23:04)
[2021-07-20] MEDS: INSULIN -REGULAR HUMAN 50 UNIT/0.5 ML ML SQ SCH (23:04)
[2021-07-20] MEDS ORDERED: ATORVASTATIN 40 MG TAB PO SCH (23:04)
[2021-07-20] MEDS ORDERED: ONDANSETRON 4 MG/2 ML VIAL IV PRN (23:04)
[2021-07-21] MEDS ORDERED: NA CHLORIDE 0.9% 1,000 ML ONE (00:40)
[2021-07-21] MEDS ORDERED: HEPARIN 5000 UNIT/ML 1 ML VIAL ONE (00:40)
[2021-07-21] MEDS ORDERED: ATORVASTATIN 20 MG TAB ONE (00:40)
[2021-07-21] MEDS: HEPARIN 5000 UNIT/ML 1 ML VIAL SQ SCH ×2 (01:10→08:39)
[2021-07-21 01:15] VITALS: BMI 35.8
[2021-07-21 03:35] VITALS: O2SAT 98
[2021-07-21 05:01] LABS: Absolute Lymphocytes (CBC) 2.3 K/uL (0.7-4.9); Hematocrit 38.9 % (36.0-45.0); MPV 8.1 fL (7.6-11.3); RBC Red Blood Cell Count 4.09 M/uL (3.86-4.86)
[2021-07-21 05:19] LABS: Potassium 3.4 mmol/L (3.5-5.1); Troponin High Sensitivity 6.6 pg/mL (<58.9)
[2021-07-21] MEDS: MORPHINE 2 MG/ML SYR IV PRN ×2 (05:24→09:47)
[2021-07-21] MEDS ORDERED: METOPROLOL TAR 25 MG TAB PO SCH (06:00)
[2021-07-21] MEDS: INSULIN -REGULAR HUMAN 50 UNIT/0.5 ML ML SQ SCH ×2 (07:30→11:30)
[2021-07-21] MEDS ORDERED: ASPIRIN EC 81 MG TAB PO SCH (09:00)
--- NOTE | 2021-07-21 09:42 | RAD REPORT ---
EXAM DESCRIPTION: NM - Vent Perfusion VQ Scan - 07/21/2021 9:15 am CLINICAL HISTORY: Rule out PE, elev. DD COMPARISON: Portable chest 07/20/2021 TECHNIQUE: The patient was administered 17.1 mCi Xenon 133 gas with posterior projection inspiration , equilibrium, and washout views obtained. The patient was then administered 7.4 mCi Tc-99m MAA label ed RBCs followed by standard 8 view protocol. FINDINGS: There is good distribution of the Xenon with no ventilation defects identified. Mild diffu se air trapping is present. Perfusion images show no defects suspicious for pulmonary emboli. IMPRESSION: No evidence for pulmonary emboli. Normal to low probability scan. Mild diffuse air trapping. No focal ventilation defects or asymmetric air trapping.
--- NOTE | 2021-07-21 09:51 | EKG ---
Test Date: 2021-07-20 Test Time: 16:45:31 Contracts Paralegal: MB MEASUREMENT RESULTS: Intervals: Rate: 102 MT: 152 QRSD: 72 QT: 340 QTc: 443 Elkins: P: 55 MT: 152 QRS: 55 T: 43 INTERPRETIVE STATEMENTS: Sinus tachycardia Otherwise normal ECG Compared to ECG 10/28/2020 22:10:32 Sinus rhythm no longer present Sinus arrhythmia no longer present Electronically Signed On 07-21-21 09:49:46 CDT by Davide Hernandez
--- NOTE | 2021-07-21 12:38 | ECHO ---
HEIGHT: 5 ft 6 in WEIGHT: 222 lb 0.088 oz DATE OF STUDY: 07/21/[address]: Davide Hernandez MD 2-DIMENSIONAL: YES M.MODE: YES DOPPLER: YES COLOR FLOW: YES TDS: PORTABLE: YES DEFINITY: BUBBLE STUDY: DIAGNOSIS: CHEST PAIN CARDIAC HISTORY: CATHERIZATION: NO SURGERY: NO PROSTHETIC VALVE: NO PACEMAKER: NO MEASUREMENTS (cm) DIASTOLIC (NORMALS) SYSTOLIC (NORMALS) IVSd 1.0 (0.6-1.2) LA Diam 2.4 (1.9-4.0) LVEF 74% LVIDd 4.2 (3.5-5.7) LVIDs 2.4 (2.0-3.5) %FS 42% LVPWd 1.0 (0.6-1.2) Ao Diam 2.8 (2.0-3.7) 2 DIMENSIONAL ASSESSMENT: RIGHT ATRIUM: LEFT ATRIUM: RIGHT VENTRICLE: LEFT VENTRICLE: TRICUSPID VALVE: MITRAL VALVE: PULMONIC VALVE: AORTIC VALVE: PERICARDIAL EFFUSION: AORTIC ROOT: LEFT VENTRICULAR WALL MOTION: DOPPLER/COLOR FLOW: COMMENTS: NORMAL 2-DIMENSIONAL ECHOCARDIOGRAM WITH DOPPLER. NO WALL MOTION ABNORMALITY. NO EFFUSION. TECHNOLOGIST: ROB MOHR
[2021-07-21 12:55] VITALS: BP 101/60; TEMP 99
--- NOTE | 2021-07-21 13:03 | P.DS ---
Admission Date: 07/20/21 Discharge Date: 07/21/21 Disposition: ROUTINE DISCHARGE Discharge Condition: GOOD Reason for Admission: Chest pain Brief History of Present Illness: 61-year-old female history of diabetes mellitus type [id number], hypertension presents emergency department for 4 days of substernal pressure- like chest pain, shortness of breath. Patient attributes her symptoms to starting her Farxiga approximately 1 month ago. Patient was evaluated in the emergency department her initial troponin was negative and was 1.6 GFR 37 Was 2.9 D-dimer was mildly elevated 619 given her ongoing chest pain and mild el evation in D-dimer ED provider wishes to admit under observation for ACS rule out/PE rule out with likely VQ scan in the morning. She was given aspirin in the ER. Hospital Course: She was admitted for chest pain work-up. She had elevated D-dimer and she had work-up pulmonary embolism and this was negative. Cardiology evaluated patient and did echocardiogram and pain to be noncardiac. She will follow-up on outpatient for stress to because of recent nuclear imaging study for DVT work-up. She will continue adjust medication with addition of aspirin and atorvastatin fo r management of hyperlipidemia. Vital Signs/Physical Exam: Temp Pulse Resp BP Pulse Ox 99.0 F 66 16 101/60 97 07/21/21 12:00 07/21/21 12:00 07/21/21 12:00 07/21/21 12:00 07/21/21 12:00 General: Alert, Oriented x3 HEENT: Atraumatic, Normocephalic Neck: Supple Respiratory: Normal air movement Cardiovascular: Regular rate/rhythm, Normal S1 S2 Gastrointestinal: Soft and benign Musculoskeletal: No swelling Neurological: Normal speech, Normal strength at 5/5 x4 extr Laboratory Data at Discharge: WBC 6.3 K/uL (4.3-10.9) D 07/21/21 04:50 Hgb 13.1 g/dL (12.0-15.0) 07/21/21 04:50 Hct 38.9 % (36.0-45.0) 07/21/21 04:50 Plt Count 215 K/uL (152-406) 07/21/21 04:50 PT 11.9 SECONDS (9.5-12.5) 07/20/21 17:40 INR 1.08 07/20/21 17:40 Sodium 137 mmol/L (136-145) 07/21/21 04:50 Potassium 3.4 mmol/L (3.5-5.1) L 07/21/21 04:50 BUN 20 mg/dL (7-18) H 07/21/21 04:50 Creatinine 1.47 mg/dL (0.55-1.3) H 07/21/21 04:50 Glucose 102 mg/dL (74-106) 07/21/21 04:50 Total Bilirubin 0.5 mg/dL (0.2-1.0) 07/20/21 17:40 AST 16 U/L (15-37) 07/20/21 17:40 ALT 18 U/L (12-78) 07/20/21 17:40 Alkaline Phosphatase 107 U/L (45-117) 07/20/21 17:40 Triglycerides 136 mg/dL (<150) 07/21/21 04:50 Cholesterol 161 mg/dL (<200) 07/21/21 04:50 HDL Cholesterol 72 mg/dL (40-60) H 07/21/21 04:50 Cholesterol/HDL Ratio 2.24 07/21/21 04:50 Home Medications: Aspirin [Aspirin EC 81 MG] 81 mg PO DAILY 30 Days #30 tablet. 07/21/21 Atorvastatin Calcium [Lipitor] 40 mg PO BEDTIME 30 Days #30 tab 07/21/21 Cholecalciferol (Vitamin D3) [Vitamin D 5,000 IU Cap*] 1 cap PO EVERY 7TH DAY 07/21/21 Docosahexanoic AC/Epa [Fish Oil 1,000 MG*] 1 cap PO DAILY 07/21/21 Dulaglutide [Trulicity] 1 dose SQ EVERY 7TH DAY 07/21/21 Flaxseed Oil [Flaxseed] 1 cap PO DAILY 07/21/21 Losartan/Hydrochlorothiazide [Losartan-Hctz 100-25 mg Tab] 1 tab PO DAILY 07/21/21 New Medications: Aspirin [Aspirin EC 81 MG] 81 mg PO DAILY 30 Days #30 tablet. Atorvastatin Calcium [Lipitor] 40 mg PO BEDTIME 30 Days #30 tab Diet: [facility] Followup: Ajit Muñoz MD [Primary Care Provider] -
[2021-07-21 13:10] LABS: Urine Appearance Clear (Clear); Urine Bilirubin Negative (Negative); Urine Blood Negative (Negative); Urine Color Yellow (Yellow); Urine Glucose Trace (Negative); Urine Protein Negative (Negative); Urine Urobilinogen 0.2 mg/dL (0.2-1.0)
[2021-07-21 13:15] LABS: Urine Microscopic Reflex NO UMIC
[2021-07-22] MEDS ORDERED: LOSARTAN/HCTZ 50-12.5 PO SCH (09:00)
[2021-07-22] MEDS ORDERED: FLAXSEED OIL 1000 MG PO SCH (09:00)
[2021-07-22] MEDS ORDERED: DOCOSAHEXANOIC AC/EPA 1000 MG PO SCH (09:00)
--- NOTE | 2021-07-23 14:18 | CON ---
Date of Consultation: 07/21/2021 Reason For Consultation: Chest pain. History Of Present Illness: Ms. Rodgers is a 61-year-old black woman with history of diabetes, hyper tension, fibromyalgia, and gastroesophageal reflux disease and obesity. She came in with chest pain that is midepigastric, radiating to the left side of the chest with nausea, vomiting, diaphoresis. D enied PND, orthopnea, or pedal edema. Her symptoms are nonexertional. Denied any fever or chills. Denied palpitation or syncope. She had a potassium of 2.9. Her creatinine is 1.47. D-dimer was 619 with a negative EKG, negative x-ray, negative V/Q scan, negative troponin, negative BNP. Past Medical History: As stated above. Allergies: INCLUDE CIPRO AND LEVAQUIN. Review of Systems: Negative. Social History: Negative. Family History: Negative. Medications: Include losartan with hydrochlorothiazide and Trulicity. Physical Examination: General: She was obese. Vital Signs: Stable, afebrile. HEENT: Negative. Neck: Supple with no bruit. Chest: Clear. Cardiac: Revealed a regular rhythm and rate. No murmurs, gallops, or rubs. Abdomen: Benign. Extremities: Revealed no clubbing, cyanosis, or edema. Diagnostic Data: As stated earlier. Impression And Plan: 1.Atypical chest pain in a patient with diabetes, hypertension, obesity. I am concerned about her s ymptoms and I think she needs to have an outpatient MPI as soon as possible as well as an echocardiog vincent. 2.Renal insufficiency. 3.Potassium being 2.9, needs to be corrected. 4.Elevated D-dimer with a negative V/Q, EKG, and x-ray. 5.Hypertension, well controlled. 6.Diabetes. 7.Fibromyalgia. 8.Gastroesophageal reflux disease. Again, the patient is asymptomatic now. I think she needs to go home on proton pump inhibitor and get set up for an outpatient cardiac workup including an MPI and a n echocardiogram as soon as possible. JACKY/MARICRUZ Voice ID: [id number] Report ID: [id number]
[2021-07-28] MEDS ORDERED: HOME MED 1 EA UNK (Dulaglutide [Trulicity] 1.5 MG/0.5 ML Pen.Injctr) SQ SCH (09:00)
== END 2021-07-21 14:07 | disposition home or self-care (01) ==
LOC: ER 16:28 → ERHOLD 19:59 → 4TH 07-21 02:08
PROVIDERS: ADMIT Internal Medicine Nephrology; ATTEND Internal Medicine Nephrology
DX: R07.89 Other chest pain (principal); N17.9 Acute kidney failure, unspecified; E87.6 Hypokalemia; E11.9 Type 2 diabetes mellitus without complications; I10 Essential (primary) hypertension; E78.5 Hyperlipidemia, unspecified; K21.9 Gastro-esophageal reflux disease without esophagitis; M79.7 Fibromyalgia; F12.90 Cannabis use, unspecified, uncomplicated; E66.9 Obesity, unspecified; Z68.35 Body mass index [BMI] 35.0-35.9, adult; Z79.899 Other long term (current) drug therapy; Z20.822 Contact with and (suspected) exposure to COVID-19; Z88.0 Allergy status to penicillin; Z88.1 Allergy status to other antibiotic agents; Z90.49 Acquired absence of other specified parts of digestive tract; Z90.710 Acquired absence of both cervix and uterus; Z87.891 Personal history of nicotine dependence
CPT/HCPCS: 93005; 93306; 85025 ×2; 80048 ×2; 36415; 85610; 80061; 82947 ×3; 85379; 80076; 81003; 84484 ×3; 83880; 71045; 78582; 99285; U0003; J1644 ×2; J2270 ×2; J7030; A9558; A9540; G0378 ×2